=== PATIENT | female | born 1945 | race Caucasian/White ===

== ENCOUNTER → 2017-12-23 13:36 | Outpatient (CLI) | payer MEDICARE, MEDICAID, SELFPAY | PROVIDERS: Family Provider Family Medicine; PCP Family Medicine; Visit Provider Family Medicine | DX: R35.0 Frequency of micturition (principal) | CPT/HCPCS: 87077; 87086; 87088; 87186 ==

== ENCOUNTER → 2017-12-29 15:07 | Outpatient (CLI) | payer MEDICARE, MEDICAID, SELFPAY | PROVIDERS: Family Provider Family Medicine; PCP Family Medicine; Visit Provider Family Medicine | DX: R35.0 Frequency of micturition (principal) | CPT/HCPCS: 87077; 87086; 87088; 87186 ==

== ENCOUNTER → 2018-03-13 16:53 | Outpatient (CLI) | payer MEDICARE, MEDICAID, SELFPAY | PROVIDERS: Family Provider Family Medicine; PCP Family Medicine; Visit Provider Nurse Practitioner Family | DX: R35.0 Frequency of micturition (principal) | CPT/HCPCS: 87086; 87088; 87186 ==

== ENCOUNTER → 2018-04-04 16:47 | Outpatient (CLI) | payer MEDICARE, MEDICAID, SELFPAY ==
--- NOTE | 2018-04-04 16:55 | CT_ITS ---
STUDY: CT ABDOMEN AND PELVIS WITHOUT CONTRAST REASON FOR EXAM: Female, 72 years old. Recurrent UTI. RADIATION DOSAGE (If Supplied By Facility): CTDIvol = ( 16.44 ) mGy, DLP = ( 780.39 ) mGycm TECHNIQUE: Transaxial images were obtained from the dome of the diaphragm to the symphysis pubis without oral contrast, and without intravenous contrast. Sagittal and coronal images were reconstructed. Individualized dose optimization techniques were used for this CT. COMPARISON: January 07, 2013 FINDINGS: There is minimal bibasilar atelectasis and/or scarring. The visualized portions of the heart are within normal limits. Normal liver. There are multiple gallstones. Normal spleen. Normal pancreas. Normal bilateral adrenal glands. There are bilateral nonobstructing renal calculi measuring up to 5.4 mm on the right and 5.8 mm on the left. Normal visualized stomach. Normal small intestine. There are scattered diverticula throughout the colon. There is non-visualization of the appendix. There is diffuse atherosclerotic calcification of the abdominal aorta, without a demonstrated aneurysm. Normal inferior vena cava. Normal retroperitoneum. Normal urinary bladder. Normal abdominal wall. There are diffuse degenerative changes of the visualized lumbar spine. There is a superior endplate deformity of L1. CT/Abdomen/Pelvis without Cont IMPRESSION: Bilateral nonobstructing renal calculi measuring up to 5.8 mm within the left kidney. Cholelithiasis. Colonic diverticulosis. Atherosclerosis. Degenerative changes. Electronically Signed: Daphney Nuñez MD at 17:28 EST Tel , Service support ,
--- OUTSIDE RECORDS SUMMARY | 2018-05-31 09:20 | XMS RPT_ITS ---
:1945 Author Organization OHIP Support Name Relationship Address Phone ASHLYN ESCALANTEE Unavailable [address] + [place] [address] R Unavailable Unavailable Unavailable WALT TOROONY Unavailable [address] + [place] [address] BORIS, MAINE Unavailable [address] + [place] [address] R Unavailable Unavailable Unavailable WALT TOROONY Unavailable [address] + [place] [address] BORIS, MAINE Unavailable [address] + [place] [address] R Unavailable Unavailable Unavailable WALT TOROONY Unavailable [address] + [place] [address] BORIS, MAINE Unavailable [address] + [place] [address] R Unavailable Unavailable Unavailable WALT TOROONY Unavailable [address] + [place] [address] BORIS, MAINE Unavailable [address] + [place] [address] R Unavailable Unavailable Unavailable WALT TOROONY Unavailable [address] + [place] [address] BORIS, MAINE Unavailable [address] + [place] [address] R Unavailable Unavailable Unavailable WALT TOROONY Unavailable [address] + [place] [address] BORIS, MAINE Unavailable [address] + [place] [address] R Unavailable Unavailable Unavailable WALT TOROONY Unavailable [address] + [place] [phone] BORIS ESCALANTETTE Unavailable [address] + [place] [address] R Unavailable Unavailable Unavailable YOVANY, EVENS Unavailable [address] + [place] [phone] [facility]available [address] + [place] [address] R Unavailable Unavailable Unavailable YOVANY, EVENS Unavailable [address] + [place] [phone] BORISBORIS DE LEÓNTTE Unavailable [address] + [place] [address] R Unavailable Unavailable Unavailable YOVANY, EVENS Unavailable [address] + [place] [phone] [facility] Unavailable [address] + [place] [id number] R Unavailable Unavailable Unavailable YOVANY EVENS Unavailable [address] + [place] [phone] Care Team Providers Name Role Phone DARLENE BASS II Attending Unavailable JoelleZachery Attending Unavailable Joelle, James Referring Unavailable Jolliff, Marta Primary Care Unavailable JoelleZacheryJames Attending Unavailable Joelle, James Referring Unavailable Jolliff, Marta Primary Care Unavailable JoelleZachery Attending Unavailable JoelleZacheryJames Referring Unavailable Jolliff, Marta Primary Care Unavailable JoelleZachery Attending Unavailable Joelle, James Referring Unavailable Jolliff, Marta Primary Care Unavailable JoelleZachery Attending Unavailable Joelle, James Referring Unavailable Jolliff, Marta Primary Care Unavailable Jolliff, Marta Attending Unavailable Jolliff, Marta Primary Care Unavailable Jolliff, Marta Attending Unavailable Jolliff, Marta Primary Care Unavailable Jolliff, Marta Attending Unavailable Jolliff, Marta Primary Care Unavailable Gonzalo Gongora Attending Unavailable Jolliff, Marta Primary Care Unavailable Lexi Patiño Attending Unavailable Lexi Patiño Referring Unavailable Jolliff, Marta Primary Care Unavailable Joelle, Zachery Rodgers Attending Unavailable Joelle, James Referring Unavailable Jolliff, Marta Primary Care Unavailable DeHorta, Capo Consulting Unavailable PROBLEMS PROBLEMS DATE TYPE CONDITION / CODE ATTENDING STATUS SOURCE 04/20/2018 Unknown N20.0 - Calculus Kaylyn Lexi Active [place] [facility] N20.0(ICD-10) Hospital Repository PROCEDURES PROCEDURES No Procedure Records FoundRESULTS RESULTS HEMOGLOBIN A1C Collected: 04/24/2018 Status: F Source: [place]AN[place] 10:33 AM [facility] REPOSITORY TYPE CODE TESTS RESULT OUT OF RANGE REFERENCE UNITS LAB L501.9985 4.2-6.3 % High HGB A1C 6.4 Performed By: #### L501.9985 #### [facility] [address] [place], [address] BASIC METABOLIC Collected: 04/24/2018 Status: F Source: [place]ANIE PROFILE (BMP) 10:33 AM [facility] REPOSITORY TYPE CODE TESTS RESULT OUT OF RANGE REFERENCE UNITS LAB L501.0100 74-106 mg/dL High GLU 119 Result Comment: Fasting Glucose result from 100 to 125 mg/dL suggests IMPAIRED HOMEOSTASIS per A.D.A. criteria. Please note revised GLUCOSE reference range effective 2017. LAB L501.1000 7-18 mg/dL Normal BUN 10 LAB L501.1100 0.55-1.02 mg/dL Normal CREAT,SERUM 0.92 Result Comment: The validity of the calculated GFR AND GFRAA in patients over 70 years has not been determined. Clinical correlation is essential. LAB L501.1110 >60 mL/min Normal EST GFR 64 Result Comment: Non- GFR Calc LAB L501.1115 >60 mL/min Normal EST GFR - AA 77 Result Comment: GFR Calc LAB L501.1300 10-20 RATIO Normal BUN/CRE 10.9 LAB L501.2200 8.5-10.1 mg/dL CA Normal 8.9 LAB L501.5300 136-145 mmol/L NA Normal 143 LAB L501.5600 3.5-5.1 mmol/L K Normal 4.1 LAB L501.5900 98-107 mmol/L CL Normal 105 LAB L501.6100 21.0-32.0 mmol/L Normal CO2 30.0 LAB L501.6200 5-15 Normal GAP 8 Performed By: #### L500.2500, L500.4100, L501.4100, L501.4405, L501.9520, L506.0400 #### [facility] [address] [place], [place], [id number] LIPID PROFILE Collected: 04/24/2018 Status: F Source: JANIE 10:33 AM [facility] REPOSITORY TYPE CODE TESTS RESULT OUT OF RANGE REFERENCE UNITS LAB L501.4900 200 mg/dL Normal CHOL 157 Result Comment: <200 mg/dL Desirable 200-240 mg/dL Borderline >240 mg/dL High Risk LAB L501.5000 mg/dL Normal TRIG 165 Result Comment: The drugs N-Acetylcysteine and Metamizole may falsely depress this assay. Serum Triglycerides Reference Interval Normal <150 mg/dL Borderline high 150 - 199 mg/dL High 200 - 499 mg/dL Very High > or = 500 mg/dL LAB L501.6400 mg/dL Normal HDL 52 Result Comment: The drugs N-Acetylcysteine and Metamizole may falsely depress this assay. Reference Range HDL <40 mg/dL Low HDL Cholesterol HDL >or= 60 mg/dL High HDL Cholesterol LAB L501.6500 0-130 mg/dL Normal LDL 72 LAB L501.6600 5-40 mg/dL Normal VLDL 33 Performed By: #### L500.2500, L500.4100, L501.4100, L501.4405, L501.9520, L506.0400 #### [facility] [address] [place], [address] AST(SGOT) Collected: 04/24/2018 Status: F Source: JANIE 10:33 AM [facility] REPOSITORY TYPE CODE TESTS RESULT OUT OF RANGE REFERENCE UNITS LAB L501.4100 15-37 U/L Low AST 14 Performed By: #### L500.2500, L500.4100, L501.4100, L501.4405, L501.9520, L506.0400 #### [facility] [address] [place], [address] ALANINE AMINOTRANSFERAS Collected: 04/24/2018 Status: F Source: JANIE (SGPT) 10:33 AM [facility] REPOSITORY TYPE CODE TESTS RESULT OUT OF RANGE REFERENCE UNITS LAB L501.4405 13-56 U/L Normal ALT 21 Performed By: #### L500.2500, L500.4100, L501.4100, L501.4405, L501.9520, L506.0400 #### [facility] [address] [place], [address] THYROID STIM HORMONE Collected: 04/24/2018 Status: F Source: [place] (TSH) 10:33 AM [facility] REPOSITORY TYPE CODE TESTS RESULT OUT OF RANGE REFERENCE UNITS LAB L501.9520 0.358-3.74 uIU/mL Low TSH 0.18 Performed By: #### L500.2500, L500.4100, L501.4100, L501.4405, L501.9520, L506.0400 #### [facility] [place], [address] T4 FREE DIRECT Collected: 04/24/2018 Status: F Source: [place] 10:33 AM [facility] REPOSITORY TYPE CODE TESTS RESULT OUT OF RANGE REFERENCE UNITS LAB L506.0400 0.76-1.46 ng/dL Normal T4 FREE 1.22 DIRECT Performed By: #### L500.2500, L500.4100, L501.4100, L501.4405, L501.9520, L506.0400 #### [facility] [place], [address] 12 LEAD ELECTROCARDIOGRAM Observed: 04/21/2018 Status: F Source: [place] 10:49 AM [facility] REPOSITORY [facility] Cardiovascular Services [address] [place] [id number] 12 Lead EKG 04/18/18 1501 MR#: [id number] Acct: [id number] Name: CLEM TORO Rep #: [id number] : 1945 72 From: Irving Mckenna MD Attending Dr: Joelle ENCINAS,Zachery Rodgers Status: PRE [facility] [place] Ordering Dr: Zachery Liao MD Date: 04/18/18 Location: [facility] [place] Sex: F C Admitted: Test Reason : PREOP Blood Pressure : / mmHG Vent. Rate : 087 BPM Atrial Rate : 087 BPM P-R Int : 150 ms QRS Dur : 080 ms QT Int : 380 ms P-R-T Axes : 062 073 041 degrees QTc Int : 457 ms Sinus rhythm with occasional Premature ventricular complexes ST AND T wave abnormality, consider inferior ischemia Abnormal ECG Confirmed by BALA ENCINAS, IRVING ([id number]), online content editor ROMA HENRY ([id number]) on 04/21/2018 10:49:27 AM Referred By: Zachery Liao Confirmed By:IRVING MCKENNA MD 04/21/18 1049 Date Irving Mckenna MD CC: Marta Mccarthy MD; Zachery Liao MD Signed Observed: 04/20/2018 Status: F Source: [place] CDIFF (MOLECULAR) 4:07 PM [facility] REPOSITORY Cdiff-Molecular Normal Reference Range = Negative CALLED TO DR. LIAO 04/20/181818 BY [facility]. C. Diff DNA Positive-Toxigenic C. Difficile DNA Detected NAAT METHOD Testing was performed using nucleic acid amplification ORGANISM 1: Toxigenic C. difficile DNA Performed By: #### M100.6796 #### [facility] [address] [facility] [place], [address] ABDOMEN/PELVIS WITHOUT Observed: 04/04/2018 Status: F Source: [place] CONT 4:55 PM [facility] REPOSITORY [facility] Imaging Services [address] [place] [address] Abdomen/Pelvis without Cont MR#: [id number] Acct: [id number] Name: CLEM TORO Rep #: [id number] : 1945 F 72 From: Daphney Nuñez MD PCP: Marta Mccarthy MD Status: REG CLI Study: Abdomen/Pelvis without Cont Date of Exam: 04/04/18 Exam# [id number] Ordering Dr: Lexi Patiño VP PRODUCT MANAGEMENT-C STUDY: CT ABDOMEN AND PELVIS WITHOUT CONTRAST REASON FOR EXAM: Female, 72 years old. Recurrent UTI. RADIATION DOSAGE (If Supplied By Facility): CTDIvol = ( 16.44 ) mGy, DLP = ( 780.39 ) mGycm TECHNIQUE: Transaxial images were obtained from the dome of the diaphragm to the symphysis pubis without oral contrast, and without intravenous contrast. Sagittal and coronal images were reconstructed. Individualized dose optimization techniques were used for this CT. COMPARISON: January 07, 2013 FINDINGS: There is minimal bibasilar atelectasis and/or scarring. The visualized portions of the heart are within normal limits. Normal liver. There are multiple gallstones. Normal spleen. Normal pancreas. Normal bilateral adrenal glands. There are bilateral nonobstructing renal calculi measuring up to 5.4 mm on the right and 5.8 mm on the left. Normal visualized stomach. Normal small intestine. There are scattered diverticula throughout the colon. There is non-visualization of the appendix. There is diffuse atherosclerotic calcification of the abdominal aorta, without a demonstrated aneurysm. Normal inferior vena cava. Normal retroperitoneum. Normal urinary bladder. Normal abdominal wall. There are diffuse degenerative changes of the visualized lumbar spine. There is a superior endplate deformity of L1. CT/Abdomen/Pelvis without Cont IMPRESSION: Bilateral nonobstructing renal calculi measuring up to 5.8 mm within the left kidney. Cholelithiasis. Colonic diverticulosis. Atherosclerosis. Degenerative changes. Electronically Signed: Daphney Nuñez MD at 17:28 EST Tel , Service support , CC: Marta Mccarthy MD; Lexi Patiño NP [employer] Hand[employer] Supervisor: Signed Observed: 04/04/2018 Status: F Source: JANIE CULTURE, URINE 4:00 PM [facility] REPOSITORY Urine Culture RESULTS CALLED TO AIDAN Leos 04/06/18 1436 Cheyenne Youssef. Copy of report sent to Infection Control Printer [id number] 04/06/18 0838 BLANCHE. ORGANISM 1: Escherichia coli [place] Count >100,000 MARKER ESBL producing Organism Escherichia coli: REACTION Amikacin $ <=2 S Aztreonam $$$ 4 R Meropenem $ <=0.25 S (NF) indicates non-formulary drug at [facility]. Approval by Infectious Disease Specialist required before non-formulary drugs may be ordered and/or dispensed. Escherichia coli: REACTION Amoxacillin/Clavulanic Acid $ 4 S Ampicillin $ >=32 R Ampicillin/Sulbactam $ 4 S Cefazolin $ >=64 R Cefepime $ <=1 R Ceftriaxone $ 32 R Ciprofloxacin $ >=4 R ESBL + Ertapenim $$$ <=0.5 S Gentamicin $ <=1 S Imipenem *NF <=0.25 S Levofloxacin $ >=8 R Nitrofurantoin $ 128 R Piperacillin/Tazobactam $$ <=4 S Tobramycin $ <=1 S Trimethoprim/Sulfametho $ >=320 R (NF) indicates non-formulary drug at [facility]. Approval by Infectious Disease Specialist required before non-formulary drugs may be ordered and/or dispensed. Performed By: #### M100.0650 #### [facility] [address] [place], [address] Observed: 03/13/2018 Status: F Source: [place] CULTURE, URINE 9:40 AM [facility] REPOSITORY Urine Culture ORGANISM 1: Presumptive E. coli [place] Count >100,000 Presumptive E. coli: REACTION Amoxacillin/Clavulanic Acid $ <=2 S Ampicillin $ 8 S Ampicillin/Sulbactam $ <=2 S Cefazolin $ <=4 S Cefepime $ <=1 S Ceftriaxone $ <=1 S Ciprofloxacin $ <=0.25 S ESBL - Ertapenim $$$ <=0.5 S Gentamicin $ <=1 S Imipenem *NF <=0.25 S Levofloxacin $ <=0.12 S Nitrofurantoin $ 32 S Piperacillin/Tazobactam $$ <=4 S Tobramycin $ <=1 S Trimethoprim/Sulfametho $ <=20 S (NF) indicates non-formulary drug at [facility]. Approval by Infectious Disease Specialist required before non-formulary drugs may be ordered and/or dispensed. Performed By: #### M100.0650 #### [facility] [address] [place], [address] Observed: 2017 Status: F Source: JANIE CULTURE, URINE 3:08 PM [facility] REPOSITORY Order Date: 12/26/17 Order Info: 630-4 - CUUR Urine Culture Copy of report sent to Infection Control Printer [id number] 12/31/17 0821 BLANCHE. RESULTS CALLED TO DEREK/ [phone] 01/02/18 0834 Cheyenne Youssef. REPORT READ BACK BY SAME. ORGANISM 1: Escherichia coli [place] Count 11,000-25,000 MARKER ESBL producing Organism Escherichia coli: REACTION Amikacin $ <=2 S Aztreonam $$$ 4 R Meropenem $ <=0.25 S (NF) indicates non-formulary drug at [facility]. Approval by Infectious Disease Specialist required before non-formulary drugs may be ordered and/or dispensed. Escherichia coli: REACTION Amoxacillin/Clavulanic Acid $ 4 S Ampicillin $ >=32 R Ampicillin/Sulbactam $ 4 S Cefazolin $ >=64 R Cefepime $ 2 R Ceftriaxone $ >=64 R Ciprofloxacin $ >=4 R ESBL + Ertapenim $$$ <=0.5 S Gentamicin $ <=1 S Imipenem *NF <=0.25 S Levofloxacin $ >=8 R Nitrofurantoin $ <=16 S Piperacillin/Tazobactam $$ <=4 S Tobramycin $ <=1 S Trimethoprim/Sulfametho $ >=320 R (NF) indicates non-formulary drug at [facility]. Approval by Infectious Disease Specialist required before non-formulary drugs may be ordered and/or dispensed. Performed By: #### M100.0650 #### [facility] [address] [place], [address] Observed: 12/23/2017 Status: F Source: JANIE CULTURE, URINE 12:30 PM [facility] REPOSITORY Order Date: 12/23/17 Order Info: 630-4 - CUUR Urine Culture RESULTS CALLED TO KINDRA () 12/26/17 0822 Geneva Helton. REPORT READ BACK BY SAME. Copy of report sent to Infection Control Printer [id number] 12/26/17 9593 MAYLIN. ORGANISM 1: Escherichia coli [place] Count 50,000-80,000 MARKER ESBL producing Organism Escherichia coli: REACTION Amikacin $ <=2 S Aztreonam $$$ 4 R Meropenem $ <=0.25 S (NF) indicates non-formulary drug at [facility]. Approval by Infectious Disease Specialist required before non-formulary drugs may be ordered and/or dispensed. Escherichia coli: REACTION Amoxacillin/Clavulanic Acid $ 4 S Ampicillin $ >=32 R Ampicillin/Sulbactam $ 4 S Cefazolin $ >=64 R Cefepime $ <=1 R Ceftriaxone $ >=64 R Ciprofloxacin $ >=4 R ESBL + Ertapenim $$$ <=0.5 S Gentamicin $ <=1 S Imipenem *NF <=0.25 S Levofloxacin $ >=8 R Nitrofurantoin $ <=16 S Piperacillin/Tazobactam $$ <=4 S Tobramycin $ <=1 S Trimethoprim/Sulfametho $ >=320 R (NF) indicates non-formulary drug at [facility]. Approval by Infectious Disease Specialist required before non-formulary drugs may be ordered and/or dispensed. Performed By: #### M100.0650 #### [facility] [address] [place] [address]. [place], [address] PROGRESS Observed: 06/07/2017 Status: COMPLETED Source: [place] 3:47 PM [facility] REPOSITORY HNO ID: [id number] Author: Darlene Bass II Service: (none) Author Type: PERSONNEL ADVISER Type: Progress Notes Filed: 06/07/2017 3:49 PM Note Text: ASSESSMENT/PLAN: 1. Myopia of both eyes - ICD9: 367.1, ICD10: H52.13 (primary diagnosis) 2. Presbyopia - ICD9: 367.4, ICD10: H52.4 Updated glasses power demonstrated to patient. Change glasses to maximize visual performance as desired. 3. Type 2 diabetes mellitus without retinopathy (HCC) - ICD9: 250.00, ICD10: E11.9 Examination shows no ocular diabetic complications today. Discussed need for optimal diabetes control to minimize chance of ocular complications. Advise patient to immediately report worsening in status or additional symptoms. Continue yearly dilated eye examinations. 4. Combined form of senile cataract of both eyes - ICD9: 366.19, ICD10: H25.813 Cataract formation progressing. Patient defers surgical correction until a later time. 5. Dermatochalasis of both upper eyelids - ICD9: 374.87, ICD10: H02.831, H02.834 Tolerable for now. Monitor for progression. 6. Vitreous floaters of both eyes - ICD9: 379.24, ICD10: H43.393 Vitreal floaters stable both eyes. Retinas flat and intact with no apparent retinal tear or traction. Monitor yearly. I have confirmed and edited as necessary the relevant ophthalmic history, review of systems, surgical history, and ophthalmological examination findings as obtained by the ophthalmic technical staff. I have seen and examined Clem Toro. I have discussed the examination findings, diagnosis, and treatment options with the patient and/or the patient's family. I have also reviewed and agree with the assessment and plan as stated above and agree with all its relevant components. I gave the patient the opportunity to ask questions about the findings, diagnosis, and treatment options. Darlene Bass II, OD HOSP Observed: 06/07/2017 Status: COMPLETED Source: [place] 3:00 PM [facility] REPOSITORY Office Visit OPHT (OPTLOU) CLEM TORO ([id number]) 1945 F Date Time Provider Department 06/07/17 3:00 PM DARLENE BASS II During your visit today, we recorded the following information about you: Darlene Bass II, OD 06/07/2017 3:49 PM Signed ASSESSMENT/PLAN: 1. Myopia of both eyes - ICD9: 367.1, ICD10: H52.13 (primary diagnosis) 2. Presbyopia - ICD9: 367.4, ICD10: H52.4 Updated glasses power demonstrated to patient. Change glasses to maximize visual performance as desired. 3. Type 2 diabetes mellitus without retinopathy (HCC) - ICD9: 250.00, ICD10: E11.9 Examination shows no ocular diabetic complications today. Discussed need for optimal diabetes control to minimize chance of ocular complications. Advise patient to immediately report worsening in status or additional symptoms. Continue yearly dilated eye examinations. 4. Combined form of senile cataract of both eyes - ICD9: 366.19, ICD10: H25.813 Cataract formation progressing. Patient defers surgical correction until a later time. 5. Dermatochalasis of both upper eyelids - ICD9: 374.87, ICD10: H02.831, H02.834 Tolerable for now. Monitor for progression. 6. Vitreous floaters of both eyes - ICD9: 379.24, ICD10: H43.393 Vitreal floaters stable both eyes. Retinas flat and intact with no apparent retinal tear or traction. Monitor yearly. I have confirmed and edited as necessary the relevant ophthalmic history, review of systems, surgical history, and ophthalmological examination findings as obtained by the ophthalmic technical staff. I have seen and examined Clem Andrew Toro. I have discussed the examination findings, diagnosis, and treatment options with the patient and/or the patient's family. I have also reviewed and agree with the assessment and plan as stated above and agree with all its relevant components. I gave the patient the opportunity to ask questions about the findings, diagnosis, and treatment options. Darlene Bass, II, OD Darlene Bass, II, OD 06/07/2017 3:49 PM Signed ASSESSMENT/PLAN: 1. Myopia of both eyes - ICD9: 367.1, ICD10: H52.13 (primary diagnosis) 2. Presbyopia - ICD9: 367.4, ICD10: H52.4 Updated glasses power demonstrated to patient. Change glasses to maximize visual performance as desired. 3. Type 2 diabetes mellitus without retinopathy (HCC) - ICD9: 250.00, ICD10: E11.9 Examination shows no ocular diabetic complications today. Discussed need for optimal diabetes control to minimize chance of ocular complications. Advise patient to immediately report worsening in status or additional symptoms. Continue yearly dilated eye examinations. 4. Combined form of senile cataract of both eyes - ICD9: 366.19, ICD10: H25.813 Cataract formation progressing. Patient defers surgical correction until a later time. 5. Dermatochalasis of both upper eyelids - ICD9: 374.87, ICD10: H02.831, H02.834 Tolerable for now. Monitor for progression. 6. Vitreous floaters of both eyes - ICD9: 379.24, ICD10: H43.393 Vitreal floaters stable both eyes. Retinas flat and intact with no apparent retinal tear or traction. Monitor yearly. Referring Provider: SELF [200] Allergies As of Date: 06/07/2017 Noted Allergy Reaction CODEINE 01/19/2011 11 - Vomiting HYDROCODONE 01/19/2011 11 - Vomiting MEPERIDINE 01/19/2011 11 - Vomiting MORPHINE 01/19/2011 11 - Vomiting PENICILLINS 01/19/2011 16 - Unknown SEASONAL ALLERGIES 10/09/2014 14 - Other: See Comments Comments: Sinus and eyes SULFA (SULFONAMIDE ANTIBIOTICS) 06/07/2017 11 - Vomiting THIOPENTAL 01/19/2011 11 - Vomiting Date Reviewed: 06/07/2017 Reviewed by: Darlene Bass II - Fully Assessed Reason for Visit: Yearly Exam [187] Diabetes [34] Primary Visit Diagnosis:Myopia of both eyes [H52.13] Other Visit Diagnoses:Presbyopia [H52.4] Type 2 diabetes mellitus without retinopathy (HCC) [E11.9] Combined form of senile cataract of both eyes [H25.813] Dermatochalasis of both upper eyelids [H02.831, H02.834] Vitreous floaters of both eyes [H43.393] Order(s):VISUAL FIELD C-40 SCREENING OU [[id number]] Order #: [id number]: 1 Prescriptions as of 06/07/2017 Sig: METFORMIN ER 500 MG TABLET,EX* ASPIRIN ORAL Take by mouth. VITAMIN D-3 ORAL Take by mouth. GARLIC ORAL Take by mouth. MULTIVITAMIN ORAL Take by mouth. CALCIUM ORAL Take by mouth. BIOTIN ORAL Take by mouth. AMITRIPTYLINE 50 MG TABLET AZELASTINE 0.05 % EYE DROPS FLUTICASONE 50 MCG/ACTUATION * LEVOTHYROXINE 75 MCG TABLET MYCOPHENOLATE MOFETIL 500 MG * SIMVASTATIN 40 MG TABLET METOPROLOL SUCCINATE ER 25 MG* Take 25 mg by mouth once ellis* ACCU-CHEK RAMANDEEP PLUS TEST STR* ACCU-CHEK RAMANDEEP PLUS METER Problem List As Of Date 06/07/2017 Noted Resolved Combined form of senile cataract of both eyes [*INVALID FOR* Dermatochalasis of both upper eyelids [H02.831,*INVALID FOR* Myopia [H52.10] INVALID FOR* Presbyopia [H52.4] INVALID FOR* Floaters [H43.399] INVALID FOR* Type 2 diabetes mellitus without retinopathy (H*INVALID FOR* Other instructions from your clinician: ASSESSMENT/PLAN: 1. Myopia of both eyes - ICD9: 367.1, ICD10: H52.13 (primary diagnosis) 2. Presbyopia - ICD9: 367.4, ICD10: H52.4 Updated glasses power demonstrated to patient. Change glasses to maximize visual performance as desired. 3. Type 2 diabetes mellitus without retinopathy (HCC) - ICD9: 250.00, ICD10: E11.9 Examination shows no ocular diabetic complications today. Discussed need for optimal diabetes control to minimize chance of ocular complications. Advise patient to immediately report worsening in status or additional symptoms. Continue yearly dilated eye examinations. 4. Combined form of senile cataract of both eyes - ICD9: 366.19, ICD10: H25.813 Cataract formation progressing. Patient defers surgical correction until a later time. 5. Dermatochalasis of both upper eyelids - ICD9: 374.87, ICD10: H02.831, H02.834 Tolerable for now. Monitor for progression. 6. Vitreous floaters of both eyes - ICD9: 379.24, ICD10: H43.393 Vitreal floaters stable both eyes. Retinas flat and intact with no apparent retinal tear or traction. Monitor yearly. Disposition: Return in about 1 year (around 06/07/2018). Follow-up and Disposition History Recorded Letter Text Encounter Status:Closed by DARLENE BASS II OD on 06/07/17 ALLERGIES ALLERGIES DATE TYPE / CODE NAME / CODE REACTION SEVERITY SOURCE 04/20/2018 Drug meperidine Vomiting Unknown [place] Allergy/574782311( HCl/H086661981(R [facility]) XNORM) Hospital Repository 04/20/2018 Drug hydrocodone Vomiting Unknown [place] Allergy/892552884( bitartrate/F0000 [facility]) 78231(RXNORM) Hospital Repository 04/20/2018 Drug Penicillins/F001 Unknown Unknown [place] Allergy/958650519( 318282(RXNORM) [facility] Hospital Repository 04/20/2018 Drug morphine/S231912 Vomiting Unknown [place] Allergy/982632736( 545(RXNORM) [facility] Hospital Repository 04/20/2018 Drug codeine/O7066214 Vomiting Unknown [place] Allergy/702033573( 50(RXNORM) [facility] Hospital Repository 04/20/2018 Drug acetaminophen/F0 Vomiting Unknown [place] Allergy/122374493( 59963774(RXNORM) [facility] Hospital Repository 04/20/2018 Miscellaneous sodium penathol Other Unknown [place] Allergy/932577041( [facility]) Hospital Repository 06/26/2015 Drug sodium Unknown Unknown [place] Allergy/061186543( phosphate/F03044 [facility]) 7397(RXNORM) Hospital Repository 10/09/2014 Environ/404647066( [facility] Repository ENCOUNTERS ENCOUNTERS ADMIT/DISCHARGE ACCOUNT ADMITTING ENCOUNTER LOCATION SOURCE NUMBER CLASS 05/10/2018 [id number] [facility] ing:SDC Repository 04/24/2018 [id number] [facility] ing:MFPLAB Repository 04/22/2018 [id number] [facility] Hospital ing:MEDOUTP Repository 04/21/2018 [id number] Ambulatory [facility] Hospital ing:MEDOUTP Repository 04/20/2018 [id number] [facility] Hospital ing:MEDOUTP Repository 04/19/2018 [id number] [facility] Hospital ing:MEDOUTP Repository 04/18/2018 [id number] [facility] ing:MEDOUTP Repository 04/04/2018 [id number] [facility] ing:CT Repository 03/13/2018 [id number] Ambulatory [facility] ing:LABSPEC Repository 2017 [id number] [facility] ing:LABSPEC Repository 12/23/2017 [id number] [facility] ing:LABSPEC Repository 06/07/2017/08/11/19 [id number] Ambulatory [address] Repository PAYERS PAYERS ENCOUNTER GUARANTOR PAYER SUBSCRIBER SOURCE 05/10/2018 CLEM A Primary CLEM A [place] [id number] TR Insurance:CRUZ REZANDOB: [place] [address] SENIOR [id number] [address]Lzb: ADVANTAPolicy Number: Repository [id number] (HP) Date:[id number] [address] [place] [address] 31237IF: 05/10/2018 Secondary CLEM A [place] Insurance:MEDICAIDPol STEFFENDOB: Community icy Number: [id number] [facility] [id number] Repository Date:2018-04-06 05/10/2018 Tertiary NOT GIVENUNK [place] Insurance:SELF PAY [facility] Number: Effective Repository Date:2018-04-06 04/24/2018 CLEM A Primary CLEM A [place] [id number] TR Insurance:CRUZ REZANDOB: Community [address] SENIOR [id number] Healthcare Facility [address]Fpu: ADVANTAPolicy Number: Repository [id number] (HP) Date:[id number] [id number] [place] [address] 88011CH: 04/24/2018 Secondary CLEM A [place] Insurance:MEDICAIDPol STEFFENDOB: Community icy Number: [id number] Hospital [id number] Repository Date:2018-04-24 04/24/2018 Tertiary NOT GIVENUNK [place] Insurance:SELF PAY [facility] Number: Effective Repository Date:2018-04-24 04/22/2018 CLEM A Primary CLEM A [place] [id number] TR Insurance:ANTHEM STESUDEEPNDOB: Community [address] SENIOR [id number] Healthcare Facility [address]Dcv: ADVANTAPolicy Number: Repository [id number] (HP) Date:5485-89-49WS [address] [place] [address] 43023HW: 04/22/2018 Secondary NOT GIVENUNK [place] Insurance:SELF PAY [facility] Number: Effective Repository Date:2018-04-17 04/21/2018 CLEM A Primary CLEM A [place] [id number] TR Insurance:ANTHEM STEFFENDOB: Community [address] SENIOR [id number] [place] [address]Ptx: ADVANTAPolicy Number: Repository [id number] (HP) Date:3731-32-59NS [address] [place] [address] 61973JY: 04/21/2018 Secondary NOT GIVENUNK [place] Insurance:SELF PAY [facility] Number: Effective Repository Date:2018-04-17 04/20/2018 CLEM A Primary CLEM A [place] [id number] TR Insurance:ANTHEM STEFFENDOB: Community [address] SENIOR [id number] [place] [address]Hab: ADVANTAPolicy Number: Repository [id number] (HP) Date:7305-38-61AP [address] [place] [address] 63066DR: 04/20/2018 Secondary CLEM A [place] [facility] STEFFENDOB: [facility] Number: [id number] Hospital [id number] Repository Date:2018-04-17 04/20/2018 Tertiary NOT GIVENUNK [place] Insurance:SELF PAY [facility] Number: Effective Repository Date:2018-04-17 04/19/2018 CLEM A Primary CLEM A [place] [id number] TR Insurance:ANTHEM STEFFENDOB: Community [address] SENIOR [id number] [place] [address]Tar: ADVANTAPolicy Number: Repository [id number] (HP) Date:1599-55-32ON [address] [place] [address] 49185MI: 04/19/2018 Secondary CLEM A [place] [facility] STEFFENDOB: [facility] Number: [id number] Hospital [id number] Repository Date:2018-04-17 04/19/2018 Tertiary NOT GIVENUNK Jan[place] Insurance:SELF PAY [facility] Number: Effective Repository Date:2018-04-17 04/18/2018 CLEM A Primary CLEM A [place] [id number] TR Insurance:ANTHEM STEFFENDOB: Community [address] SENIOR [id number] [place] [address]Xcp: ADVANTAPolicy Number: Repository [id number] (HP) Date:7238-21-82JP [address] [place] [address] 02346QG: 04/18/2018 Secondary NOT GIVENUNK [place] Insurance:SELF PAY [facility] Number: Effective Repository Date:2018-04-17 04/04/2018 CLEM A Primary CLEM A [place] [id number] TR Insurance:ANTHEM STEFFENDOB: Community [address] SEN[place] [id number] [place] [address]Lyp: ADVANTAPolicy Number: Repository [id number] (HP) Date:1475-35-44BP [id number] [place] [address] 89105PZ: 04/04/2018 Secondary NOT GIVENUNK [place] Insurance:SELF PAY [facility] Number: Effective Repository Date:2018-04-04 03/13/2018 CLEM A Primary CLEM A [place] [id number] TR Insurance:ANTHEM STEFFENDOB: Community [address] SENIOR [id number] [place] [address]Lsy: ADVANTAPolicy Number: Repository [id number] (HP) Date:8958-29-53HK [address], [place] [address]OE: 03/13/2018 Secondary CLEM A [place] Insurance:MEDICAIDPol STEFFENDOB: Community icy Number: [id number] Hospital [id number] Repository Date:2018-03-13 03/13/2018 Tertiary NOT GIVENUNK [place] Insurance:SELF PAY [facility] Number: Effective Repository Date:2018-03-13 2017 CLEM A Primary CLEM A [place] [id number] TR Insurance:ANTHEM STEFFENDOB: Community [address] [place] SENIOR [id number] Healthcare Facility [address]Aal: ADVANTAPolicy Number: Repository [id number] (HP) Date:6045-23-46XW [address], [place] [address]IM: 2017 Secondary CLEM A [place] Insurance:MEDICAIDPol STEFFENDOB: Community icy Number: [id number] Hospital [id number] Repository Date:2017 2017 Tertiary NOT GIVENUNK [place] Insurance:SELF PAY [facility] Number: Effective Repository Date:2017 12/23/2017 CLEM A Primary CLEM A [place] [id number] TR Insurance:ANTHEM STEFFENDOB: Community [address] SENIOR [id number] [place] [address]Eda: ADVANTAPolicy Number: Repository [id number] (HP) Date:3365-37-73XS [address] [place] [address] 21742YF: 12/23/2017 Secondary CLEM A [place] Insurance:MEDICAIDPol STEFFENDOB: Community icy Number: [id number] Hospital [id number] Repository Date:2017-12-23 12/23/2017 Tertiary NOT GIVENUNK [place] Insurance:SELF PAY [facility] Number: Effective Repository Date:2017-12-23
== END ==
PROVIDERS: Family Provider Family Medicine; PCP Family Medicine; Referring Provider Nurse Practitioner Adult Health; Visit Provider Nurse Practitioner Adult Health
DX: N20.0 Calculus of kidney (principal); N39.0 Urinary tract infection, site not specified
CPT/HCPCS: 74176; 87077; 87086; 87088; 87186

== ENCOUNTER → 2018-04-18 13:23 | Outpatient (CLI) | payer MEDICARE, MEDICAID, SELFPAY ==
[2018-04-18 13:51] VITALS: BP 160/62; PULSE 99; RESP 18; TEMP 36.5; O2SAT 100; BMI 32.7
--- OUTSIDE RECORDS SUMMARY | 2018-06-04 17:54 | XMS RPT_ITS ---
:1945 Author Organization OHIP Support Name Relationship Address Phone ASHLYN ESCALANTEE Unavailable [address] + [place] [address] R Unavailable Unavailable Unavailable WALT TOROONY Unavailable [address] + [place] [address] BORIS, MAINE Unavailable [address] + [place] [address] R Unavailable Unavailable Unavailable WALT TOROONY Unavailable [address] + [place] [address] BORIS, MAINE Unavailable [address] + [place] [address] R Unavailable Unavailable Unavailable WALT TOROONY Unavailable [address] + [place] [address] BORIS, MAINE Unavailable [address] + [place] [address] R Unavailable Unavailable Unavailable WALT TOROONY Unavailable [address] + [place] [address] BORIS, MAINE Unavailable [address] + [place] [address] R Unavailable Unavailable Unavailable WALT TOROONY Unavailable [address] + [place] [address] BORIS, MAINE Unavailable [address] + [place] [address] R Unavailable Unavailable Unavailable WALT TOROONY Unavailable [address] + [place] [address] BORIS, MAINE Unavailable [address] + [place] [address] R Unavailable Unavailable Unavailable WALT TOROONY Unavailable [address] + [place] [address] BORIS, MAINE Unavailable [address] + [place] [address] R Unavailable Unavailable Unavailable YOVANY, EVENS Unavailable [address] + [place] [address] Ana ESCALANTEVETTE Unavailable [address] + [place] [address] R Unavailable Unavailable Unavailable YOVANY, EVENS Unavailable [address] + [place] [address] Ana ESCALANTEVETTE Unavailable [address] + [place] [address] R Unavailable Unavailable Unavailable YOVANY, EVENS Unavailable [address] + [place] [id number] Ana ESCALANTEVETTE Unavailable [address] + [place] [address] R Unavailable Unavailable Unavailable YOVANY, EVENS Unavailable [address] + [place] [address] BORISAna DE LEÓNVETTE Unavailable [address] + [place] [address] R Unavailable Unavailable Unavailable YOVANY, EVENS Unavailable [address] + [place] [id number] BORIS ESCALANTETTE Unavailable [address] + [place] [address] R Unavailable Unavailable Unavailable YOVANY, EVENS Unavailable [address] + [place] [id number] [facility] [address] + [place] [address] R Unavailable Unavailable Unavailable YOVANY, EVENS Unavailable [address] + [place] [address] Care Team Providers Name Role Phone DARLENE BASS II Attending Unavailable Zachery Liao Attending Unavailable JoelleZachery Referring Unavailable Jolliff, Marta Primary Care Unavailable Zachery Liao Attending Unavailable JoelleZachery Referring Unavailable Jolliff, Marta Primary Care Unavailable JoelleZachery rizvi Attending Unavailable JoelleZachery Referring Unavailable Jolliff, Marta Primary Care Unavailable Joelle, James Attending Unavailable Joelle, James Referring Unavailable Jolliff, Marta Primary Care Unavailable Joelle, James Attending Unavailable Joelle, James Referring Unavailable Jolliff, Marta Primary Care Unavailable Jolliff, Marta Attending Unavailable Jolliff, Marta Primary Care Unavailable Jolliff, Marta Attending Unavailable Jolliff, Marta Primary Care Unavailable Jolliff, Marta Attending Unavailable Jolliff, Marta Primary Care Unavailable Gonzalo Gongora Attending Unavailable Jolliff, Marta Primary Care Unavailable Kaylyn, Lexi Vences Attending Unavailable Kaylyn, Lexi M Referring Unavailable Jolliff, Marta Primary Care Unavailable Joelle, James Attending Unavailable Joelle, James Referring Unavailable Capo Guerra Consulting Unavailable SchinJerome ferguson Primary Care Unavailable Moodispayoselin, Irving Attending Unavailable Joelle, James Referring Unavailable Joelle, Zachery Rodgers Attending Unavailable Joelle, James Referring Unavailable Jolliff, Marta Primary Care Unavailable Kaylyn, Lexi Vences Attending Unavailable Kaylyn, Lexi Vangie Referring Unavailable SchinJerome ferguson Primary Care Unavailable PROBLEMS PROBLEMS DATE TYPE CONDITION / CODE ATTENDING STATUS SOURCE 05/03/2018 Unknown R94.31 - Abnormal Moodispaw, Active [place] electrocardiogram [facility] [ECG] [EKG] / Hospital R94.31(ICD-10) Repository 05/30/2018 Unknown N20.0 - Calculus of Kaylyn, Active [place] kidney / N20.0(ICD-10) Lexi Vences [facility] Repository PROCEDURES PROCEDURES No Procedure Records FoundRESULTS RESULTS ABDOMEN SINGLE VIEW Observed: 05/25/2018 Status: F Source: [place] 2:18 PM [facility] REPOSITORY [facility] Imaging Services [address] [place] [address] Abdomen Single View MR#: [id number] Acct: [id number] Name: CLEM TORO Rep #: [id number] : 1945 F 72 From: Hugo Martínez MD PCP: Jerome Richard MD Status: REG CLI Study: Abdomen Single View Date of Exam: 05/25/18 Exam# [id number] Ordering Dr: Lexi Patiño INSTALLATION AND SERVICE TECHNICIAN-C STUDY: X-RAY - ABDOMEN/PELVIS REASON FOR EXAM: Female, 72 years old. Kidney stones. TECHNIQUE: Two AP supine views of the abdomen and pelvis. COMPARISON: AP supine view of the abdomen and pelvis May 10, 2018; CT abdomen and pelvis April 04, 2018. FINDINGS: Normal visualized lung bases. There is an unremarkable bowel gas pattern. There is no demonstrated free abdominal air. Rim calcified gallstones again project in the right upper quadrant. The bilateral renal calculi noted on CT are not clearly demonstrated here. Elongated right lobe of the liver again noted. The visualized spleen is grossly normal in size and morphology. There are calcified phleboliths in the pelvis. There are stable multilevel degenerative changes of the visualized spine as well as stable mild compression deformity of the second nonrib-bearing vertebra from the top. A transitional lumbosacral body also again noted.. RAD/Abdomen Single View IMPRESSION: 1. Bilateral nephrolithiasis demonstrated on CT is not apparent here. 2. Gallstones again noted. 3. Nonspecific bowel gas pattern. No free gas. 4. Stable degenerative changes of the spine, as well as stable compression deformity of an upper lumbar vertebra. Transitional lumbosacral body also again seen. Electronically Signed: Danis Martínez MD at 14:37 EST , Service support , CC: Jerome Richard MD; Lexi Patiño NP Dust Control Engineer: Signed BEDSIDE GLUCOSE Collected: 05/10/2018 Status: F Source: [place] 5:10 PM [facility] REPOSITORY TYPE CODE TESTS RESULT OUT OF RANGE REFERENCE UNITS LAB L501.080 70-110 mg/dL Normal BEDSIDE GLU 96 Result Comment: MANAGEMENT OF PATIENT CARE PER NURSING PROTOCOL Performed By: #### L501.080 #### [place] [facility] Laboratory Point of Care [address] [place] [address] OPERATIVE REPORT Observed: 05/10/2018 Status: F Source: [place] 4:40 PM [facility] REPOSITORY [facility] Medical Records Department [address] [place] [address] Operative Report 05/10/18 1638 MR#: [id number] Acct: [id number] Name: CLEM TORO Rep #: [id number] : 1945 72 From: Zachery Liao MD PCP: Jerome Richard MD Status: REG [facility] Y Location: [place] [address] Report of Operation Date of Procedure: 05/10/18 Pre-Operative Diagnosis: Bilateral renal calculi Post-Operative Diagnosis: the same Surgery/Procedure Performed:: Right ESWL and left ESWL Description of Surgical Findings:: 72-year-old female has been having recurrent urinary tract infections and workup she was found to have bilateral renal stones we treated her infection the stones may be related to the infections were to proceed with shockwave lithotripsy. She was taken back to the operating room at the smooth induction of general anesthesia she was placed supine on the table we first localized the first stone in the right kidney the stone was behind the stones in her gallbladder we then were able to see the stone clearly we treated it with 2500 shockwaves stone broke up very nicely her first treatment cycle. We then went to the left side and she had several stones left kidney mid pole on the left side the stones were then treated with 3000 shockwaves rate of 120 power from 5-7 1 more monitoring the stone stones broke up really well decided not to leave a stent in both sides were treated broke up successfully and at this point we have stopped the procedure and the patient is undergoing reversal of her anesthesia. She will follow-up in a few weeks with a KUB. Type of Anesthesia:: General Drains: none - Admit VTE Documentation VTE Present on Admission: No VTE Mechan Device Prophylaxis: SCD's 05/10/18 1640 <Electronically signed by Zachery Liao MD> Date Zachery Liao MD CC: Capo Guerra MD; Jerome Richard MD; Zachery Liao MD Signed DISCHARGE INSTRUCTION Observed: 05/10/2018 Status: F Source: [place] 4:29 PM [facility] REPOSITORY [facility] Medical Records Department [address] [place] [address] Instructions for Home/Discharge Instructions 05/10/18 1628 MR#: [id number] Acct: [id number] Name: CLEM TORO Rep #: [id number] : 1945 72 From: Zachery Liao MD PCP: Jerome Richard MD Status: REG SDC Discharge Diet: Light diet - advance as tolerated Discharge Activity: Return to Normal Activity Allergies/Adverse Reactions: Allergies Penicillins Allergy (Verified 05/08/18 09:15) Unknown acetaminophen [From Vicodin] Adverse Reaction (Verified 05/08/18 09:15) Vomiting codeine Adverse Reaction (Verified 05/08/18 09:15) Vomiting hydrocodone bitartrate [From Vicodin] Adverse Reaction (Verified 05/08/18 09:15) Vomiting meperidine HCl [From Demerol] Adverse Reaction (Verified 05/08/18 09:15) Vomiting morphine Adverse Reaction (Verified 05/08/18 09:15) Vomiting sodium penathol Allergy (Uncoded 05/08/18 09:15) Other Medications to take at Discharge Amitriptyline HCl 50 mg PO QHS 06/26/15 Aspirin 325 mg PO DAILY@0800 06/26/15 Calcium Carbonate/Vitamin D3 [Calcium 500+D Tablet Chew] 500 mg PO DAILY 06/26/15 Cholecalciferol (VIT D3) [Vitamin D] 1,000 unit PO DAILY 06/26/15 Garlic 500 mg PO DAILY 06/26/15 Levothyroxine [Synthroid] 75 mcg PO DAILY 06/26/15 Metoprolol Tartrate [Lopressor (Beta Dylan)] 25 mg PO BID 06/26/15 Multivitamins,Ther W-Minerals [Multivitamin With Minerals] 1 tablet PO DAILY 06/26/15 Mycophenolate Mofetil [Cellcept] 500 mg PO BID 06/26/15 Simvastatin [Zocor] 40 mg PO QHS 06/26/15 Autoimmune C 1 tab PO QHS 04/12/18 Fluticasone 0.05% [Flonase Nasal [place]] 1 spray NASAL DAILY PRN 04/12/18 Metformin HCl [Metformin HCl ER] 500 mg PO DAILY 04/12/18 Acetaminophen [Tylenol Extra Strength] 500 mg PO Q4H PRN PRN #20 tablet 05/10/18 Ibuprofen 600 mg PO Q4H PRN PRN #20 tablet 05/10/18 The following prescriptions were given: Acetaminophen [Tylenol Extra Strength] 500 mg PO Q4H PRN PRN #20 tablet PRN Reason: Pain Ibuprofen 600 mg PO Q4H PRN PRN #20 tablet PRN Reason: Pain Orders to be completed after discharge: 12 Lead EKG [CVS] Time Frame: 04/13/18, Location: None Selected Primary Care Physician: Jerome Richard MD [Primary Care Provider] - Test Results: Test results from this visit will be discussed in further detail at your follow-up appointment, if applicable. Please Follow Up With: Zachery Liao MD When: in 2 weeks, please call to make an appointment. 05/10/18 1629 <Electronically signed by Zachery Liao MD> Date Zachery Liao MD CC: Capo Guerra MD; Jerome Richard MD Signed BEDSIDE GLUCOSE Collected: 05/10/2018 Status: F Source: [place] 1:10 PM [facility] REPOSITORY TYPE CODE TESTS RESULT OUT OF REFERENCE UNITS RANGE LAB L501.080 70-110 mg/dL High BEDSIDE GLU 113 Result Comment: MANAGEMENT OF PATIENT CARE PER NURSING PROTOCOL Performed By: #### L501.080 #### [facility] Point of Care [address] [place] [address] ABDOMEN SINGLE VIEW Observed: 05/10/2018 Status: F Source: [place] 12:32 PM [facility] REPOSITORY [facility] Imaging Services [address] [place] [address] Abdomen Single View MR#: [id number] Acct: [id number] Name: CLEM TORO Rep #: [id number] : 1945 F 72 From: Hugo Ordaz MD PCP: Jerome Richard MD Status: [facility] Study: Abdomen Single View Date of Exam: 05/10/18 Exam# [id number] Ordering Dr: Zachery Liao MD STUDY: X-RAY - ABDOMEN/PELVIS REASON FOR EXAM: Female, 72 years old. Preop for kidney stones TECHNIQUE: Single AP view of the abdomen / pelvis. COMPARISON: None. FINDINGS: Multiple large stones noted in the right upper quadrant likely within the gallbladder. No demonstrated calcifications overlying the right renal shadow, there are faint calcifications overlying the left renal shadow. There is an unremarkable bowel gas pattern. There is no demonstrated free abdominal air. The visualized liver, spleen and kidneys are grossly normal in size and morphology. There are calcified phleboliths in the pelvis. There are diffuse degenerative changes of the visualized lumbar spine. RAD/Abdomen Single View IMPRESSION: Cholelithiasis Likely left nephrolithiasis Degenerative bony changes Electronically Signed: Danis Ordaz MD at 13:12 EST , Service support , CC: Jerome Richard MD; Zachery Liao MD Dust Control Engineer: Signed Observed: 05/04/2018 Status: F Source: [place] CDIFF (MOLECULAR) 4:36 PM [facility] REPOSITORY Cdiff-Molecular Normal Reference Range = Negative C. Diff DNA Negative- No toxigenic C. Diff DNA Detected NAAT METHOD Testing was performed using nucleic acid amplification Performed By: #### M100.6796 #### [place] [facility] [place], [address] HEMOGLOBIN A1C Collected: 04/24/2018 Status: F Source: [place] 10:33 AM [facility] REPOSITORY TYPE CODE TESTS RESULT OUT OF RANGE REFERENCE UNITS LAB L501.9985 4.2-6.3 % High HGB A1C 6.4 Performed By: #### L501.9985 #### [facility] [address] [place], [place], [address] BASIC METABOLIC Collected: 04/24/2018 Status: F Source: [place] PROFILE (BMP) 10:33 AM [facility] REPOSITORY TYPE CODE TESTS RESULT OUT OF [...] L500.2500, L500.4100, L501.4100, L501.4405, L501.9520, L506.0400 #### [facility] [address] [place], [address] LIPID PROFILE Collected: 04/24/2018 Status: F Source: [place] 10:33 AM [facility] REPOSITORY TYPE CODE TESTS RESULT OUT OF [...] L500.2500, L500.4100, L501.4100, L501.4405, L501.9520, L506.0400 #### [facility] [address] [place], [place], [address] AST(SGOT) Collected: 04/24/2018 Status: F Source: [place] 10:33 AM [facility] REPOSITORY TYPE CODE TESTS RESULT OUT OF RANGE REFERENCE UNITS LAB L501.4100 15-37 U/L Low AST 14 Performed By: #### L500.2500, L500.4100, L501.4100, L501.4405, L501.9520, L506.0400 #### [facility] [address] [place], [place], [address] ALANINE AMINOTRANSFERAS Collected: 04/24/2018 Status: F Source: [place] (SGPT) 10:33 AM [facility] REPOSITORY TYPE CODE TESTS RESULT OUT OF RANGE REFERENCE UNITS LAB L501.4405 13-56 U/L Normal ALT 21 Performed By: #### L500.2500, L500.4100, L501.4100, L501.4405, L501.9520, L506.0400 #### [facility] [address] [place], [place], [address] THYROID STIM HORMONE Collected: 04/24/2018 Status: F Source: [place] (TSH) 10:33 AM [facility] REPOSITORY TYPE CODE TESTS RESULT OUT OF RANGE REFERENCE UNITS LAB L501.9520 0.358-3.74 uIU/mL Low TSH 0.18 Performed By: #### L500.2500, L500.4100, L501.4100, L501.4405, L501.9520, L506.0400 #### [facility] [address] [place], [place], [address] T4 FREE DIRECT Collected: 04/24/2018 Status: F Source: [place] 10:33 AM [facility] REPOSITORY TYPE CODE TESTS RESULT OUT OF RANGE REFERENCE UNITS LAB L506.0400 0.76-1.46 ng/dL Normal T4 FREE 1.22 DIRECT Performed By: #### L500.2500, L500.4100, L501.4100, L501.4405, L501.9520, L506.0400 #### [facility] [address] [place], [address] 12 LEAD ELECTROCARDIOGRAM Observed: 04/21/2018 Status: F Source: [place] 10:49 AM [facility] Cardiovascular Services [address] [place] [address] 12 Lead EKG 04/18/18 1501 MR#: [id number] Acct: [id number] Name: CLEM TORO Rep #: [id number] : 1945 72 From: Irving Mckenna MD Attending Dr: Zachery Liao MD Status: PRE [facility] Ordering Dr: Zachery Liao MD Date: 04/18/18 Location: [facility] Sex: F C Admitted: Test Reason : [...] Abnormal ECG Confirmed by BALA ENCINAS, IRVING ([id number]), online content editor ROMA HENRY ([id number]) on 04/21/2018 10:49:27 AM Referred By: Zachery Liao Confirmed By:IRVING MCKENNA MD 04/21/18 1049 Date Irving Mckenna MD CC: Marta Mccarthy MD; Zachery Liao MD Signed Observed: 04/20/2018 Status: F Source: [place] CDIFF (MOLECULAR) 4:07 PM [facility] REPOSITORY Cdiff-Molecular Normal Reference Range = Negative CALLED TO DR. LIAO 04/20/18 4989 BY [facility]. C. Diff DNA Positive-Toxigenic C. Difficile DNA Detected NAAT METHOD Testing was performed using nucleic acid amplification ORGANISM 1: Toxigenic C. difficile DNA Performed By: #### M100.6796 #### [facility] [address] [place], [address] ABDOMEN/PELVIS WITHOUT Observed: 04/04/2018 Status: F Source: [place] CONT 4:55 PM [facility] REPOSITORY [facility] Imaging Services [address] [place] [address] Abdomen/Pelvis without Cont MR#: [id number] Acct: [id number] Name: CLEM TORO Rep #: [id number] : 1945 F 72 From: Daphney Nuñez MD PCP: Marta Mccarthy MD Status: REG CLI Study: Abdomen/Pelvis without Cont Date of Exam: 04/04/18 Exam# [id number] Ordering Dr: Lexi Patiño INSTALLATION AND SERVICE TECHNICIAN-C STUDY: CT ABDOMEN AND PELVIS WITHOUT CONTRAST [...] CC: Marta Mccarthy MD; Lexi Patiño NP Dust Control Engineer: Signed Observed: 04/04/2018 Status: F Source: [place] CULTURE, URINE 4:00 PM [facility] REPOSITORY Urine Culture RESULTS CALLED TO AIDAN Leos 04/06/18 0837 [place] Youssef. Copy of report sent to Infection Control Printer [id number] 04/06/18 0838 BLANCHE. ORGANISM 1: Escherichia coli Downey Count >100,000 MARKER ESBL producing Organism Escherichia coli: REACTION Amikacin $ <=2 S Aztreonam $$$ 4 R Meropenem $ <=0.25 S (NF) indicates non-formulary drug at [facility]. Approval by Infectious Disease Specialist required [...] >=320 R (NF) indicates non-formulary drug at [facility]. Approval by Infectious Disease Specialist required before non-formulary drugs may be ordered and/or dispensed. Performed By: #### M100.0650 #### [facility] [address] [place], [address] Observed: 03/13/2018 Status: F Source: [place] CULTURE, URINE 9:40 AM [facility] REPOSITORY Urine Culture ORGANISM 1: Presumptive E. coli Downey Count >100,000 Presumptive E. coli: REACTION Amoxacillin/Clavulanic [...] <=20 S (NF) indicates non-formulary drug at [facility]. Approval by Infectious Disease Specialist required before non-formulary drugs may be ordered and/or dispensed. Performed By: #### M100.0650 #### [facility] [address] [place], [address] Observed: 2017 Status: F Source: [place] CULTURE, URINE 3:08 PM [facility] REPOSITORY Order Date: 12/26/17 Order Info: 630-4 - CUUR Urine Culture Copy of report sent to Infection Control Printer [id number] 12/31/17 0821 BLANCHE. RESULTS CALLED TO DEREK/ [phone] 01/02/18 0834 [place] Mikael. REPORT READ BACK BY SAME. ORGANISM 1: Escherichia coli Downey Count 11,000-25,000 MARKER ESBL producing Organism Escherichia coli: REACTION Amikacin $ <=2 S Aztreonam $$$ 4 R Meropenem $ <=0.25 S (NF) indicates non-formulary drug at [facility]. Approval by Infectious Disease Specialist required [...] >=320 R (NF) indicates non-formulary drug at [facility]. Approval by Infectious Disease Specialist required before non-formulary drugs may be ordered and/or dispensed. Performed By: #### M100.0650 #### [facility] [place], [address] Observed: 12/23/2017 Status: F Source: [place] CULTURE, URINE 12:30 PM [facility] REPOSITORY Order Date: 12/23/17 Order Info: 630-4 - [facility] Urine Culture RESULTS CALLED TO KINDRA () 12/26/17 0860 Geneva Helton. REPORT READ BACK BY SAME. Copy of report sent to Infection Control Printer [id number] 12/26/17 0855 MAYLIN. ORGANISM 1: Escherichia coli Downey Count 50,000-80,000 MARKER ESBL producing Organism Escherichia coli: REACTION Amikacin $ <=2 S Aztreonam $$$ 4 R Meropenem $ <=0.25 S (NF) indicates non-formulary drug at [facility]. Approval by Infectious Disease Specialist required [...] >=320 R (NF) indicates non-formulary drug at [facility]. Approval by Infectious Disease Specialist required before non-formulary drugs may be ordered and/or dispensed. Performed By: #### M100.0650 #### [facility] [address] [place], [address] PROGRESS Observed: 06/07/2017 Status: COMPLETED Source: [place] 3:47 PM [facility] REPOSITORY O ID: [id number] Author: Darlene Bass II Service: (none) Author Type: LABORATORY MACHINIST Type: Progress Notes Filed: 06/07/2017 3:49 PM [...] OD HOSP Observed: 06/07/2017 Status: COMPLETED Source: [place] 3:00 PM [facility] REPOSITORY Office Visit OPHT (OPTLOU) CLEM TORO ([id number]) 1945 F Date Time Provider Department 06/07/17 3:00 PM DARLENE BASS II OPTLOU During your visit today, we recorded the [...] eyes [H43.393] Order(s):VISUAL FIELD C-40 SCREENING OU [8505812] Order #: [id number]: 1 Prescriptions as of 06/07/2017 Sig: METFORMIN [...] CODE NAME / CODE REACTION SEVERITY SOURCE 05/08/2018 Drug meperidine Vomiting Unknown [facility] Allergy/937515279( HCl/[id number](R [facility]) XNORM) Hospital Repository 05/08/2018 Drug hydrocodone Vomiting Unknown [facility] Allergy/518218208( bitartrate/F0000 [facility]) 22935(RXNORM) Hospital Repository 05/08/2018 Drug Penicillins/F001 Unknown Unknown [place] Allergy/779330848( 087619(RXNORM) [facility]) Hospital Repository 05/08/2018 Drug morphine/F118067 Vomiting Unknown [facility] Allergy/042926306( 545(RXNORM) [facility] Hospital Repository 05/08/2018 Drug codeine/E8536964 Vomiting Unknown [place] Allergy/017909320( 50(RXNORM) [facility] SNOMED CT) Hospital Repository 05/08/2018 Drug acetaminophen/F0 Vomiting Unknown [facility] Allergy/404505797( 30356721(RXNORM) [facility] SNOMED CT) Hospital Repository 05/08/2018 Miscellaneous sodium penathol Other Unknown [place] Allergy/639614163( Community [facility]) Hospital Repository 06/26/2015 Drug sodium Unknown Unknown [facility] Allergy/115557369( phosphate/O58950 [facility]) 7397(RXNORM) Hospital Repository 10/09/2014 Environ/292937284( SEASONAL OTHER: SEE [place] SNOMED [facility]) [facility] Repository ENCOUNTERS ENCOUNTERS ADMIT/DISCHARGE ACCOUNT ADMITTING ENCOUNTER LOCATION SOURCE NUMBER CLASS 05/25/2018 [id number] [facility] Hospital ing:RAD.FUTUR Repository E 05/10/2018/05/10/19 [id number] [address] ing:SDCRoom: Repository AC16 05/04/2018 [id number] Ambulatory [facility] Hospital ing:LAB Repository 04/24/2018 [id number] Ambulatory [facility] Hospital ing:MFPLAB Repository 04/22/2018 [id number] [facility] 04/21/2018 [id number] [facility]MED[facility] Rep[facility] 04/20/2018 [id number] [facility]MED[facility]P Rep[facility] 04/19/2018 [id number] [facility] Hospital ing:MEDOUTP Repository 04/18/2018 [id number] [facility] ing:MEDOUTP Repository 04/18/2018 [id number] Ambulatory [facility] Repository 04/04/2018 [id number] Ambulatory [facility] Hospital ing:CT Repository 03/13/2018 [id number] [facility] ing:LABSPEC Repository 2017 [id number] [facility] ing:LABSPEC Repository 12/23/2017 [id number] [facility] ing:LABSPEC Repository 06/07/2017/08/11/19 [id number] Ambulatory [address] Repository PAYERS PAYERS ENCOUNTER GUARANTOR PAYER SUBSCRIBER SOURCE 05/25/2018 CLEM Morales Primary CLEM [place] [id number] TR Insurance:ANTHEM DENNYFFENDOB: [place]EN[place] [id number] [address]Dyb: ADVANTAPolicy Number: Repository [id number] (HP) Date:4935-34-37[id number] [place] [address] 18741PN: 05/25/2018 Secondary CLEM A Janie Insurance:MEDICAIDPol STEFFENDOB: [facility] icy Number: [id number] Hospital [id number] Repository Date:2018-05-23 05/25/2018 Tertiary NOT GIVENUNK Janie Insurance:SELF PAY [facility] Number: Effective Repository Date:2018-05-23 05/10/2018 CLEM A Primary CLEM [place] [id number] TR Insurance:ANTHEM DENNYFFENDOB: [place] [address] SEN[place] [id number] Memorial Hospital [address]Diy: ADVANTAPolicy Number: Repository [id number] (HP) Date:4456-77-80WZ [address], [place] [address]SH: 05/10/2018 Secondary CLEM A Janie Insurance:MEDICAIDPol STEFFENDOB: [facility] icy Number: [id number] Hospital [id number] Repository Date:2018-04-06 05/10/2018 Tertiary NOT GIVENUNK [place] Insurance:SELF PAY [facility] Number: Effective Repository Date:2018-04-06 05/04/2018 CLEM A Primary CLEM A Janie [id number] TR Insurance:ANTHEM STEFFENDOB: [place] [address] SEN[place] [id number] [place] [address]Hdy: ADVANTAPolicy Number: Repository [id number] (HP) Date:2911-14-97UJ [address] [place] [address] 68437KO: 05/04/2018 Secondary CLEM A [place] Insurance:MEDICAIDPol STEFFENDOB: Community icy Number: [id number] Hospital [id number] Repository Date:2018-05-04 05/04/2018 Tertiary NOT GIVENUNK Janie Insurance:SELF PAY [facility] Number: Effective Repository Date:2018-05-04 04/24/2018 CLEM A Primary CLEM A Janie [id number] TR Insurance:ANTHEM STEFFENDOB: [place] [address] SEN[place] [id number] Memorial Hospital [address]Nuv: ADVANTAPolicy Number: Repository [id number] (HP) Date:3405-73-53QI [id number] [place] [address] 27895RO: 04/24/2018 Secondary CLEM A Janie Insurance:MEDICAIDPol STEFFENDOB: Community icy Number: [id number] Hospital [id number] Repository Date:2018-04-24 04/24/2018 Tertiary NOT GIVENUNK [place] Insurance:SELF PAY [facility] Number: Effective Repository Date:2018-04-24 04/22/2018 CLEM A Primary CLEM A Janie [id number] TR Insurance:ANTHEM STEFFENDOB: [place] [address], [place] SEN[place] [id number] [facility] [place] [address]Xkv: ADVANTAPolicy Number: Repository [id number] (HP) Date:0919-28-94OS [id number] [place] [address] 93669QB: 04/22/2018 Secondary NOT GIVENUNK Janie Insurance:SELF PAY [facility] Number: Effective Repository Date:2018-04-17 04/21/2018 CLEM A Primary CLEM A [place] [id number] TR Insurance:CRUZ REZANDOB: [place] [address], [place] SEN[place] [id number] Memorial Hospital [address]Pgu: ADVANTAPolicy Number: Repository [id number] (HP) Date:7715-22-35HR [address] [place] [address] [place] [address]ZY: 04/21/2018 Secondary NOT GIVENUNK Janie Insurance:SELF PAY [facility] Number: Effective Repository Date:2018-04-17 04/20/2018 CLEM A Primary CLEM A Janie [id number] TR Insurance:CRUZ REZANDOB: [place] [address] SEN[place] [id number] Memorial Hospital [address]Vvj: ADVANTAPolicy Number: Repository [id number] (HP) Date:3163-68-39UA [address] [place] [address] 32944TO: 04/20/2018 Secondary CLEM A [place] Insurance:MEDICAIDPol STEFFENDOB: Community icy Number: [id number] Hospital [id number] Repository Date:2018-04-17 04/20/2018 Tertiary NOT GIVENUNK [place] Insurance:SELF PAY [facility]: Effective Repository Date:2018-04-17 04/19/2018 CLEM A Primary CLEM A [place] [id number] TR Insurance:CRUZ REZANDOB: [place] [address] SEN[place] [id number] Memorial Hospital [address]Pqt: ADVANTAPolicy Number: Repository [id number] (HP) Date:2991-60-39WE [address] [place] [address] [place] [address]YQ: 04/19/2018 Secondary CLEM A [place] Insurance:MEDICAIDPol STEFFENDOB: Community icy Number: [id number] Hospital [id number] Repository Date:2018-04-17 04/19/2018 Tertiary NOT GIVENUNK [place] Insurance:SELF PAY [facility] Number: Effective Repository Date:2018-04-17 04/18/2018 CLEM A Primary CLEM A [place] [id number] TR Insurance:ANTHEM DENNYSUDEEPNDOB: [place] [address], [place] SEN[place] [id number] Memorial Hospital [address]Uyd: ADVANTAPolicy Number: Repository [id number] (HP) Date:8090-26-73FT [address] [place] [address] 93497LL: 04/18/2018 Secondary NOT GIVENUNK [place] Insurance:SELF PAY [facility] Number: Effective Repository Date:2018-04-17 04/18/2018 CLEM A Primary CLEM A Janie [id number] TR Insurance:ANTHEM LIBIANDOB: [place] [address], [place] SEN[place] [id number] [place] [address]Vpw: ADVANTAPolicy Number: Repository [id number] (HP) Date:7515-83-29WV [address] [place] [address] 37520IS: 04/18/2018 Secondary NOT GIVENUNK [place] Insurance:SELF PAY [facility] Number: Effective Repository Date:2018-04-18 04/04/2018 CLEM A Primary CLEM A [place] [id number] TR Insurance:ANTHEM LIBIANDOB: [place] [address] [id number] [place] [address]Ztw: ADVANTAPolicy Number: Repository [id number] (HP) Date:0335-26-29NE [address] [place] [address] 81668DM: 04/04/2018 Secondary CLEM A Janie Insurance:MEDICAIDPol STEFFENDOB: [facility] Number: [id number] Hospital [id number] Repository Date:2018-04-04 04/04/2018 Tertiary NOT GIVENUNK [place] Insurance:SELF PAY [facility] Number: Effective Repository Date:2018-04-04 03/13/2018 CLEM A Primary CLEM A Janie [id number] TR Insurance:ANTHEM STEFFENDOB: [place] [address] SEN[place] [id number] Hospital [place] [address]Ruy: ADVANTAPolicy Number: Repository [id number] (HP) Date:4949-16-62MP [address] [place] [address] 56760FR: 03/13/2018 Secondary CLEM A [place] Insurance:MEDICAIDPol STEFFENDOB: Community icy Number: [id number] Hospital [id number] Repository Date:2018-03-13 03/13/2018 Tertiary NOT GIVENUNK [place] Insurance:SELF PAY [facility] Number: Effective Repository Date:2018-03-13 2017 CLEM A Primary CLEM A [place] [id number] TR Insurance:ANTHEM STEFFENDOB: [place] [address] SEN[place] [id number] Memorial Hospital [address]Vsr: ADVANTAPolicy Number: Repository [id number] (HP) Date:9555-71-30DY [address] [place] [address] 38776WX: 2017 Secondary CLEM A [place] Insurance:MEDICAIDPol STEFFENDOB: Community icy Number: [id number] Hospital [id number] Repository Date:2017 2017 Tertiary NOT GIVENUNK [place] Insurance:SELF PAY [facility] Number: Effective Repository Date:2017 12/23/2017 CLEM A Primary CLEM A [place] [id number] TR Insurance:ANTHEM STEFFENDOB: [place] [address] SEN[place] [id number] [place] [address]Qrv: ADVANTAPolicy Number: Repository [id number] (HP) Date:6337-26-55PI [address] [place] [address] 21488JU: 12/23/2017 Secondary CLEM A Jan[place] Insurance:MEDICAIDPol STEFFENDOB: Community icy Number: [id number] Hospital [id number] Repository Date:2017-12-23 12/23/2017 Tertiary NOT GIVENUNK [place] Insurance:SELF PAY [facility]: Effective Repository Date:2017-12-23
== END ==
PROVIDERS: Family Provider Family Medicine; PCP Family Medicine; Referring Provider Urology; Visit Provider Urology
DX: N39.0 Urinary tract infection, site not specified (principal)
CPT/HCPCS: 96365; J7050; A4216

== ENCOUNTER → 2018-04-19 13:31 | Outpatient (CLI) | payer MEDICARE, MEDICAID, SELFPAY ==
[2018-04-18 13:51] VITALS: BMI 32.7
[2018-04-19 13:57] VITALS: BP 123/79; PULSE 85; RESP 16; TEMP 36.8; O2SAT 96; BMI 32.5
--- OUTSIDE RECORDS SUMMARY | 2018-06-05 17:28 | XMS RPT_ITS ---
:1945 Author Organization OHIP Support Name Relationship Address Phone ASHLYN ESCALANTEE Unavailable [address] + [place] [address] R Unavailable Unavailable Unavailable WALT TOROONY Unavailable [address] + [place] [address] BORIS, MAINE Unavailable [address] + [place] [address] R Unavailable Unavailable Unavailable WALT TOROONY Unavailable [address] + [place] [address] BORIS, MAINE Unavailable [address] + [place] [address] R Unavailable Unavailable Unavailable WALT TOROONY Unavailable [address] + [place] [address] BORIS, MAINE Unavailable [address] + [place] [address] R Unavailable Unavailable Unavailable WALT TOROONY Unavailable [address] + [place] [address] BORIS, MAINE Unavailable [address] + [place] [address] R Unavailable Unavailable Unavailable WALT TOROONY Unavailable [address] + [place] [address] BORIS, MAINE Unavailable [address] + [place] [address] R Unavailable Unavailable Unavailable WALT TOROONY Unavailable [address] + [place] [address] BORIS, MAINE Unavailable [address] + [place] [address] R Unavailable Unavailable Unavailable WALT TOROONY Unavailable [address] + [place] [address] BORIS, MAINE Unavailable [address] + [place] [address] R Unavailable Unavailable Unavailable YOVANY, EVENS Unavailable [address] + [place] [address] Ana ESCALANTEVETTE Unavailable [address] + [place] [address] R Unavailable Unavailable Unavailable YOVANY, EVENS Unavailable [address] + [place] [address] Ana ESCALANTEVETTE Unavailable [address] + [place] [address] R Unavailable Unavailable Unavailable YOVANY, EVENS Unavailable [address] + [place] [id number] Ana ESCALANTEVETTE Unavailable [address] + [place] [address] R Unavailable Unavailable Unavailable YOVANY, EVENS Unavailable [address] + [place] [address] BORISAna DE LEÓNVETTE Unavailable [address] + [place] [address] R Unavailable Unavailable Unavailable YOVANY, EVENS Unavailable [address] + [place] [id number] BORIS ESCALANTETTE Unavailable [address] + [place] [address] R Unavailable Unavailable Unavailable YOVANY, EVENS Unavailable [address] + [place] [id number] [facility] Unavailable [address] + [place] [address] R Unavailable Unavailable Unavailable YOVANY, EVENS Unavailable [address] + [place] [address] Care Team Providers Name Role Phone DARLENE [...] Care Unavailable Joelle, James Attending Unavailable Joelle, Jamse Referring Unavailable [employer] Unavailable SchinJerome [...] 05/03/2018 Unknown R94.31 - Abnormal Mood[place], Active [place] electrocardiogram [facility] [ECG] [EKG] / Hospital R94.31(ICD-10) Repository 05/30/2018 Unknown N20.0 - Calculus of Kaylyn, Active [place] kidney / N20.0(ICD-10) Lexi [facility] Repository PROCEDURES PROCEDURES No Procedure Records FoundRESULTS RESULTS ABDOMEN SINGLE VIEW Observed: 05/25/2018 Status: F Source: [place] 2:18 PM [facility] REPOSITORY [facility] Imaging Services [address] [place] [address] Abdomen Single View MR#: [id number] Acct: [id number] Name: CLEM TORO Rep #: [id number] : 1945 F 72 From: Hugo Martínez MD PCP: Jerome Richard MD Status: REG CLI Study: Abdomen Single View Date of Exam: 05/25/18 Exam# [id number] Ordering Dr: Lexi Patiño CASEWORK SPECIALIST-C STUDY: X-RAY - ABDOMEN/PELVIS REASON FOR EXAM: [...] CC: Jerome Richard MD; Lexi Patiño NP Nuclear Reactor Operator: Signed BEDSIDE GLUCOSE Collected: 05/10/2018 Status: F Source: [place] 5:10 PM [facility] REPOSITORY TYPE CODE TESTS RESULT OUT OF RANGE REFERENCE UNITS LAB L501.080 70-110 mg/dL Normal BEDSIDE GLU 96 Result Comment: MANAGEMENT OF PATIENT CARE PER NURSING PROTOCOL Performed By: #### L501.080 #### [place] [facility] Laboratory Point of Care [address] [place] [address] OPERATIVE REPORT Observed: 05/10/2018 Status: F Source: [place] 4:40 PM [facility] REPOSITORY [facility] Medical Records Department [address] [place] [address] Operative Report 05/10/18 1638 MR#: [id number] Acct: [id number] Name: CLEM TORO Rep #: [id number] : 1945 72 From: Zachery Liao MD PCP: Jerome Richard MD Status: REG [facility] Y Location: [place] [address] Report of Operation Date of Procedure: 05/10/18 [...] DISCHARGE INSTRUCTION Observed: 05/10/2018 Status: F Source: [place] 4:29 PM [facility] REPOSITORY [facility] Medical Records Department [address] [place] [address] Instructions for Home/Discharge Instructions 05/10/18 1628 MR#: [id number] Acct: [id number] Name: CLEM TORO Rep #: [id number] : 1945 72 From: Zachery Liao MD [...] PO QHS 04/12/18 Fluticasone 0.05% [Flonase Nasal [place]] 1 spray NASAL DAILY PRN 04/12/18 Metformin [...] BEDSIDE GLUCOSE Collected: 05/10/2018 Status: F Source: [place] 1:10 PM [facility] REPOSITORY TYPE CODE TESTS RESULT OUT OF REFERENCE UNITS RANGE LAB L501.080 70-110 mg/dL High BEDSIDE GLU 113 Result Comment: MANAGEMENT OF PATIENT CARE PER NURSING PROTOCOL Performed By: #### L501.080 #### [facility] Point of Care [address] [place] [address] ABDOMEN SINGLE VIEW Observed: 05/10/2018 Status: F Source: [place] 12:32 PM [facility] REPOSITORY [facility] Imaging Services [address] [place] [address] Abdomen Single View MR#: [id number] Acct: [id number] Name: CLEM TORO Rep #: [id number] : 1945 F 72 From: Hugo Ordaz MD PCP: Jerome Richard MD Status: [facility] Study: Abdomen Single View Date of Exam: 05/10/18 Exam# [id number] Ordering Dr: Zachery Liao MD STUDY: X-RAY [...] CC: Jerome Richard MD; Zachery Liao MD Nuclear Reactor Operator: Signed Observed: 05/04/2018 Status: F Source: [place] CDIFF (MOLECULAR) 4:36 PM [facility] REPOSITORY Cdiff-Molecular Normal Reference Range = Negative C. Diff DNA Negative- No toxigenic C. Diff DNA Detected NAAT METHOD Testing was performed using nucleic acid amplification Performed By: #### M100.6796 #### [place] [facility] Laboratory [facility] Antonio [address] [place], [address] HEMOGLOBIN A1C Collected: 04/24/2018 Status: F Source: [place] 10:33 AM [facility] REPOSITORY TYPE CODE TESTS RESULT OUT OF RANGE REFERENCE UNITS LAB L501.9985 4.2-6.3 % High HGB A1C 6.4 Performed By: #### L501.9985 #### [facility] [address] [place], [place], [address] BASIC METABOLIC Collected: 04/24/2018 Status: F Source: [place] PROFILE (BMP) 10:33 AM [facility] REPOSITORY TYPE CODE TESTS RESULT OUT OF [...] L500.2500, L500.4100, L501.4100, L501.4405, L501.9520, L506.0400 #### [facility] [address] [place], [address] LIPID PROFILE Collected: 04/24/2018 Status: F Source: [place] 10:33 AM [facility] REPOSITORY TYPE CODE TESTS RESULT OUT OF [...] L500.2500, L500.4100, L501.4100, L501.4405, L501.9520, L506.0400 #### [facility] [address] [place], [place], [address] AST(SGOT) Collected: 04/24/2018 Status: F Source: [place] 10:33 AM [facility] REPOSITORY TYPE CODE TESTS RESULT OUT OF RANGE REFERENCE UNITS LAB L501.4100 15-37 U/L Low AST 14 Performed By: #### L500.2500, L500.4100, L501.4100, L501.4405, L501.9520, L506.0400 #### [facility] [address] [place], [place], [address] ALANINE AMINOTRANSFERAS Collected: 04/24/2018 Status: F Source: [place] (SGPT) 10:33 AM [facility] REPOSITORY TYPE CODE TESTS RESULT OUT OF RANGE REFERENCE UNITS LAB L501.4405 13-56 U/L Normal ALT 21 Performed By: #### L500.2500, L500.4100, L501.4100, L501.4405, L501.9520, L506.0400 #### [facility] [address] [place], [place], [address] THYROID STIM HORMONE Collected: 04/24/2018 Status: F Source: [place] (TSH) 10:33 AM [facility] REPOSITORY TYPE CODE TESTS RESULT OUT OF RANGE REFERENCE UNITS LAB L501.9520 0.358-3.74 uIU/mL Low TSH 0.18 Performed By: #### L500.2500, L500.4100, L501.4100, L501.4405, L501.9520, L506.0400 #### [facility] [address] [place], [place], [address] T4 FREE DIRECT Collected: 04/24/2018 Status: F Source: [place] 10:33 AM [facility] REPOSITORY TYPE CODE TESTS RESULT OUT OF RANGE REFERENCE UNITS LAB L506.0400 0.76-1.46 ng/dL Normal T4 FREE 1.22 DIRECT Performed By: #### L500.2500, L500.4100, L501.4100, L501.4405, L501.9520, L506.0400 #### [facility] [address] [place], [address] 12 LEAD ELECTROCARDIOGRAM Observed: 04/21/2018 Status: F Source: [place] 10:49 AM [facility] Cardiovascular Services [address] [place] [address] 12 Lead EKG 04/18/18 1501 MR#: [id number] Acct: [id number] Name: CLEM TORO Rep #: [id number] : 1945 72 From: Irving Mckenna MD Attending Dr: Zachery Liao MD Status: PRE [facility] Ordering Dr: Zachery Liao MD Date: 04/18/18 Location: [facility] Sex: F C Admitted: Test Reason : [...] Abnormal ECG Confirmed by BALA ENCINAS, IRVING ([id number]), city editor ROMA HENRY ([id number]) on 04/21/2018 10:49:27 AM Referred By: Zachery Liao Confirmed By:IRVING MCKENNA MD 04/21/18 1049 Date Irving Mckenna MD CC: Marta Mccarthy MD; Zachery Liao MD Signed Observed: 04/20/2018 Status: F Source: [place] CDIFF (MOLECULAR) 4:07 PM [facility] REPOSITORY Cdiff-Molecular Normal Reference Range = Negative CALLED TO DR. LIAO 04/20/18 0599 BY [facility]. C. Diff DNA Positive-Toxigenic C. Difficile DNA Detected NAAT METHOD Testing was performed using nucleic acid amplification ORGANISM 1: Toxigenic C. difficile DNA Performed By: #### M100.6796 #### [facility] [address] [place], [address] ABDOMEN/PELVIS WITHOUT Observed: 04/04/2018 Status: F Source: [place] CONT 4:55 PM [facility] REPOSITORY [facility] Imaging Services [address] [place] [address] Abdomen/Pelvis without Cont MR#: [id number] Acct: [id number] Name: CLEM TORO Rep #: [id number] : 1945 F 72 From: Daphney Nuñez MD PCP: Marta Mccarthy MD Status: REG CLI Study: Abdomen/Pelvis without Cont Date of Exam: 04/04/18 Exam# [id number] Ordering Dr: Lexi Patiño CASEWORK SPECIALIST-C STUDY: CT ABDOMEN AND PELVIS WITHOUT CONTRAST [...] CC: Marta Mccarthy MD; Lexi Patiño NP Nuclear Reactor Operator: Signed Observed: 04/04/2018 Status: F Source: [place] CULTURE, URINE 4:00 PM [facility] REPOSITORY Urine Culture RESULTS CALLED TO AIDAN Leos 04/06/18 0837 Cheyenne Youssef. Copy of report sent to Infection Control Printer [id number] 04/06/18 0838 BLANCHE. ORGANISM 1: Escherichia coli [place] Count >100,000 MARKER ESBL producing Organism Escherichia coli: REACTION Amikacin $ <=2 S Aztreonam $$$ 4 R Meropenem $ <=0.25 S (NF) indicates non-formulary drug at [facility]. Approval by Infectious Disease Specialist [...] >=320 R (NF) indicates non-formulary drug at [facility]. Approval by Infectious Disease Specialist required before non-formulary drugs may be ordered and/or dispensed. Performed By: #### M100.0650 #### [facility] [address] [place], [address] Observed: 03/13/2018 Status: F Source: [place] CULTURE, URINE 9:40 AM [facility] REPOSITORY Urine Culture ORGANISM 1: Presumptive E. coli [place] Count >100,000 Presumptive E. coli: REACTION Amoxacillin/Clavulanic [...] <=20 S (NF) indicates non-formulary drug at [facility]. Approval by Infectious Disease Specialist required before non-formulary drugs may be ordered and/or dispensed. Performed By: #### M100.0650 #### [facility] [address] [place], [address] Observed: 2017 Status: F Source: [place] CULTURE, URINE 3:08 PM [facility] REPOSITORY Order Date: 12/26/17 Order Info: 630-4 - CUUR Urine Culture Copy of report sent to Infection Control Printer [id number] 12/31/17 0821 BLANCHE. RESULTS CALLED TO DEREK/ [phone] 01/02/18 0834 [place] Mikael. REPORT READ BACK BY SAME. ORGANISM 1: Escherichia coli [place] Count 11,000-25,000 MARKER ESBL producing Organism Escherichia coli: REACTION Amikacin $ <=2 S Aztreonam $$$ 4 R Meropenem $ <=0.25 S (NF) indicates non-formulary drug at [facility]. Approval by Infectious Disease Specialist [...] >=320 R (NF) indicates non-formulary drug at [facility]. Approval by Infectious Disease Specialist required before non-formulary drugs may be ordered and/or dispensed. Performed By: #### M100.0650 #### [facility] [place], [address] Observed: 12/23/2017 Status: F Source: [place] CULTURE, URINE 12:30 PM [facility] REPOSITORY Order Date: 12/23/17 Order Info: 630-4 - CUUR Urine Culture RESULTS CALLED TO KINDRA () 12/26/17 0821 Geneva Helton. REPORT READ BACK BY SAME. Copy of report sent to Infection Control Printer [id number] 12/26/17 0855 MAYLIN. ORGANISM 1: Escherichia coli [place] Count 50,000-80,000 MARKER ESBL producing Organism Escherichia coli: REACTION Amikacin $ <=2 S Aztreonam $$$ 4 R Meropenem $ <=0.25 S (NF) indicates non-formulary drug at [facility]. Approval by Infectious Disease Specialist [...] >=320 R (NF) indicates non-formulary drug at [facility]. Approval by Infectious Disease Specialist required before non-formulary drugs may be ordered and/or dispensed. Performed By: #### M100.0650 #### [facility] [address] [place], [address] PROGRESS Observed: 06/07/2017 Status: COMPLETED Source: [place] 3:47 PM [facility] REPOSITORY O ID: [id number] Author: Darlene Bass II Service: (none) Author Type: PLANER MILL GRADER Type: Progress Notes Filed: 06/07/2017 3:49 PM [...] OD HOSP Observed: 06/07/2017 Status: COMPLETED Source: [place] 3:00 PM [facility] REPOSITORY Office Visit OPHT (OPTLOU) CLEM TORO ([id number]) 1945 F Date Time Provider Department 06/07/17 [...] eyes [H43.393] Order(s):VISUAL FIELD C-40 SCREENING OU [1602218] Order #: [id number]: 1 Prescriptions as of 06/07/2017 Sig: METFORMIN [...] SOURCE 05/08/2018 Drug meperidine Vomiting Unknown [place] Allergy/030557149( HCl/F875885186(R [facility] SNOM[facility]) XNORM) Hospital Repository 05/08/2018 Drug hydrocodone Vomiting Unknown [place] Allergy/946063486( bitartrate/F0000 [facility]) [address](RXNORM) Hospital Repository 05/08/2018 Drug Penicillins/F001 Unknown Unknown [place] Allergy/563517767( 773022(RXNORM) [facility]) Hospital Repository 05/08/2018 Drug morphine/S687601 Vomiting Unknown [place] Allergy/092801698( 545(RXNORM) [facility] Hospital Repository 05/08/2018 Drug codeine/B9987335 Vomiting Unknown [place] Allergy/488772093( 50(RXNORM) [facility] SNOMED CT) Hospital Repository 05/08/2018 Drug acetaminophen/F0 Vomiting Unknown [place] Allergy/397519651( 40714745(RXNORM) [facility] SNOMED CT) Hospital Repository 05/08/2018 Miscellaneous sodium penathol Other Unknown [place] Allergy/555982922( Community [facility]) Hospital Repository 06/26/2015 Drug sodium Unknown Unknown [place] Allergy/515138265( phosphate/B29365 [facility] SNOM[facility]) 7397(RXNORM) Hospital Repository 10/09/2014 Environ/939572193( SEASONAL OTHER: SEE [place] SNOMED CT) [facility] Repository ENCOUNTERS ENCOUNTERS ADMIT/DISCHARGE ACCOUNT ADMITTING ENCOUNTER LOCATION SOURCE NUMBER CLASS 05/25/2018 [id number] [facility] Hospital ing:RAD.FUTUR Repository E 05/10/2018/05/10/19 [id number] [address] ing:SDCRoom: Repository AC16 05/04/2018 [id number] Ambulatory General acute hospital Hospital ing:LAB Repository 04/24/2018 [id number] Ambulatory General acute hospital Hospital ing:MFPLAB Repository 04/22/2018 [id number] [facility] Repository 04/21/2018 [id number] [facility] ing[facility] Repository 04/20/2018 [id number] [facility] ing:MEDOUTP Repository 04/19/2018 [id number] [facility] Hospital ing:MEDOUTP Repository 04/18/2018 [id number] [facility] Hospital ing:MEDOUTP Repository 04/18/2018 [id number] Ambulatory BMSBuilding:[facility] Repository 04/04/2018 [id number] Ambulatory General acute hospital Hospital ing:CT Repository 03/13/2018 [id number] [facility] Hospital ing:LABSPEC Repository 2017 [id number] Community Hospital ing:LABSPEC Repository 12/23/2017 [id number] Community Hospital ing:LABSPEC Repository 06/07/2017/08/11/19 [id number] Ambulatory [address] Repository PAYERS PAYERS ENCOUNTER GUARANTOR PAYER SUBSCRIBER SOURCE 05/25/2018 CLEM Morales Primary CLEM [place] [id number] TR Insurance:ANTHEM DENNYFFENDOB: [place] SENIOR [id number] [facility] [address]Msb: ADVANTAPolicy Number: Repository [id number] (HP) Date:0655-36-96SU [address] [place] [address]PN: 05/25/2018 Secondary CLEM A [place] Insurance:MEDICAIDPol STEFFENDOB: [facility] icy Number: [id number] Hospital [id number] Repository Date:2018-05-23 05/25/2018 Tertiary NOT GIVENUNK [place] Insurance:SELF PAY [facility] Number: Effective Repository Date:2018-05-23 05/10/2018 CLEM A Primary CLEM Lima [id number] [address] Insurance:ANTHEM DENNYFFENDOB: Community [address], [place] SENIOR [id number] Medical Center [address]Orj: ADVANTAPolicy Number: Repository [id number] (HP) Date:5839-07-71[address], [place] [address]FP: 05/10/2018 Secondary CLEM A [place] Insurance:MEDICAIDPol STEFFENDOB: [facility] icy Number: [id number] Hospital [id number] Repository Date:2018-04-06 05/10/2018 Tertiary NOT GIVENUNK [place] Insurance:SELF PAY [facility] Number: Effective Repository Date:2018-04-06 05/04/2018 CLEM A Primary CLEM A [place] [id number] [address] Insurance:ANTHEM STEFFENDOB: Community [address], [place]IC[place] SENIOR [id number] [place] [address]Wsw: ADVANTAPolicy Number: Repository [id number] (HP) Date:0832-73-52FV [address] [place] [address]48[address]TG: 05/04/2018 Secondary CLEM A [place] Insurance:MEDICAIDPol STEFFENDOB: Community icy Number: [id number] Hospital [id number] Repository Date:2018-05-04 05/04/2018 Tertiary NOT GIVENUNK [place] Insurance:SELF PAY [facility] Number: Effective Repository Date:2018-05-04 04/24/2018 CLEM A Primary CLEM A [place] [id number] [address] Insurance:ANTHEM STEFFENDOB: Community [address], [place] SENIOR [id number] Medical Center [address]Zvw: ADVANTAPolicy Number: Repository [id number] (HP) Date:6683-92-93UF [address] [place] [address] 918[address]ST: 04/24/2018 Secondary CLEM A [place] Insurance:MEDICAIDPol STEFFENDOB: Community icy Number: [id number] Hospital [id number] Repository Date:2018-04-24 04/24/2018 Tertiary NOT GIVENUNK [place] Insurance:SELF PAY [facility] Number: Effective Repository Date:2018-04-24 04/22/2018 CLEM A Primary CLEM A Janie [id number] [address] Insurance:ANTHEM STEFFENDOB: Community [address], MED[place] SENIOR [id number] Hospital [place] [address]Nxo: ADVANTAPolicy Number: Repository [id number] (HP) Date:4164-84-68AO [address] [place] [address] 997[address]YS: 04/22/2018 Secondary NOT GIVENUNK [place] Insurance:SELF PAY [facility] Number: Effective Repository Date:2018-04-17 04/21/2018 CLEM A Primary CLEM A [place] [id number] [address] Insurance:CRUZ REZANDOB: Community [address] SEN[place] [id number] Medical Center [address]Qnk: ADVANTAPolicy Number: Repository [id number] (HP) Date:0658-47-80EY [address] [place] [address] [place] [id number]: 04/21/2018 Secondary NOT GIVENUNK [place] Insurance:SELF PAY [facility] Number: Effective Repository Date:2018-04-17 04/20/2018 CLEM A Primary CLME A [place] [id number] [address] Insurance:CRUZ REZANDOB: Community [address] SEN[place] [id number] Medical Center [address]Jvw: ADVANTAPolicy Number: Repository [id number] (HP) Date:9484-50-92MN [address] [place] [address] 005[address]JC: 04/20/2018 Secondary CLEM A [place] Insurance:MEDICAIDPol STEFFENDOB: Community icy Number: [id number] Hospital [id number] Repository Date:2018-04-17 04/20/2018 Tertiary NOT GIVENUNK [place] Insurance:SELF PAY [facility] Number: Effective Repository Date:2018-04-17 04/19/2018 CELM A Primary CLEM A [place] [id number] [address] Insurance:CRUZ REZANDOB: Community [address], [place] SENIOR [id number] Medical Center [address]Dpb: ADVANTAPolicy Number: Repository [id number] (HP) Date:0636-59-35BL [address] [place] [address] ID [id number]: 04/19/2018 Secondary CLEM A [place] Insurance:MEDICAIDPol STEFFENDOB: Community icy Number: [id number] Hospital [id number] Repository Date:2018-04-17 04/19/2018 Tertiary NOT GIVENUNK [place] Insurance:SELF PAY [facility] Number: Effective Repository Date:2018-04-17 04/18/2018 CLEM A Primary CLEM A [place] [id number] [address] Insurance:ANTHEM DENNYSUDEEPNDOB: Community [address], [place] SEN[place] [id number] Medical Center [address]Jxu: ADVANTAPolicy Number: Repository [id number] (HP) Date:1351-94-75LJ [address] [place] [address]VE: 04/18/2018 Secondary NOT GIVENUNK [place] Insurance:SELF PAY [facility] Number: Effective Repository Date:2018-04-17 04/18/2018 CLEM A Primary CLEM A [place] [id number] [address] Insurance:ANTHEM LIBIANDOB: Community [address] SENIOR [id number] Hospital [place] [address]Oer: ADVANTAPolicy Number: Repository [id number] (HP) Date:5133-71-55MU [address] [place] [address]59[address]GR: 04/18/2018 Secondary NOT GIVENUNK [place] Insurance:SELF PAY [facility] Number: Effective Repository Date:2018-04-18 04/04/2018 CLEM A Primary CLEM A [place] [id number] [address] Insurance:ANTHEM LIBIANDOB: Community [address] SENIOR [id number] [place] [address]Rtm: ADVANTAPolicy Number: Repository [id number] (HP) Date:9908-88-20WI [address] [place] [address]KX: 04/04/2018 Secondary CLEM A [place] Insurance:MEDICAIDPol STEFFENDOB: [facility] Number: [id number] Hospital [id number] Repository Date:2018-04-04 04/04/2018 Tertiary NOT GIVENUNK [place] Insurance:SELF PAY [facility] Number: Effective Repository Date:2018-04-04 03/13/2018 CLEM A Primary CLEM A [place] [id number] [address] Insurance:ANTHEM STEFFENDOB: Community [address] SENIOR [id number] Hospital [place] [address]Qsg: ADVANTAPolicy Number: Repository [id number] (HP) Date:9853-78-63KK [address] [place] [address] [id number]: 03/13/2018 Secondary CLEM A [place] Insurance:MEDICAIDPol STE[place]OB: Community icy Number: [id number] [facility] [id number] Repository Date:2018-03-13 03/13/2018 Tertiary NOT GIVENUNK [place] Insurance:SELF PAY [facility] Number: Effective Repository Date:2018-03-13 2017 CLEM A Primary CLEM A Janie [id number] Insurance:ANTHEM STEFF[place]OB: [place] MED[place] SEN[place] [id number] [id number]: ADVANTAPolicy Number: Repository [id number] (HP) Date:[id number] [address] [place] [address] [id number]: 2017 Secondary CLEM A [place] Insurance:MEDICAIDPol STE[place]OB: Community icy Number: [id number] Hospital [id number] Repository Date:2017 2017 Tertiary NOT GIVENUNK [place] Insurance:SELF PAY [facility] Number: Effective Repository Date:2017 12/23/2017 CLEM A Primary CLEM A [place] [id number] Insurance:ANTHEM STEFF[place]OB: [place] MEDIC[place] SEN[place] [id number] [place] [id number]: ADVANTAPolicy Number: Repository [id number] (HP) Date:[id number] [address] [place] [address] [id number]: 12/23/2017 Secondary CLEM A [place] Insurance:MEDICAIDPol STEFF[place]OB: Community icy Number: [id number] Hospital [id number] Repository Date:2017-12-23 12/23/2017 Tertiary NOT GIVENUNK [place] Insurance:SELF PAY [facility] Effective Repository Date:2017-12-23
== END ==
PROVIDERS: Family Provider Family Medicine; PCP Family Medicine; Referring Provider Urology; Visit Provider Urology
DX: N39.0 Urinary tract infection, site not specified (principal)
CPT/HCPCS: 96365; J7050; A4216

== ENCOUNTER → 2018-04-20 13:18 | Outpatient (CLI) | payer MEDICARE, MEDICAID, SELFPAY ==
[2018-04-19 13:57] VITALS: BMI 32.5
[2018-04-20 13:51] VITALS: BP 114/54; PULSE 94; RESP 16; TEMP 36.9; O2SAT 96; BMI 32.5
--- OUTSIDE RECORDS SUMMARY | 2018-06-06 09:21 | XMS RPT_ITS ---
:1945 Author Organization OHIP Support Name Relationship Address Phone ASHLYN ESCALANTEE Unavailable [address] + [place] [address] R Unavailable Unavailable Unavailable WALT TOROONY Unavailable [address] + [place] [address] BORIS, MAINE Unavailable [address] + [place] [address] R Unavailable Unavailable Unavailable WALT TOROONY Unavailable [address] + [place] [address] BORIS, MAINE Unavailable [address] + [place] [address] R Unavailable Unavailable Unavailable W[place] TOR[place]Y Unavailable [address] + [place] [address] BROIS, MAINE Unavailable [address] + [place] [address] R Unavailable Unavailable Unavailable W[place] TOROONY Unavailable [address] + [place] [address] BORIS, MAINE Unavailable [address] + [place] [address] R Unavailable Unavailable Unavailable W[place] TOROONY Unavailable [address] + [place] [address] BORIS, MAINE Unavailable [address] + [place] [address] R Unavailable Unavailable Unavailable W[place] TOROONY Unavailable [address] + [place] [address] BORIS, MAINE Unavailable [address] + [place] [address] R Unavailable Unavailable Unavailable W[place] TOR[place]ONY Unavailable [address] + [place] [address] BORIS, MAINE Unavailable [address] + [place] [address] R Unavailable Unavailable Unavailable YOVANY, EVENS Unavailable [address] + [place] [address] Ana ESCALANTEVETTE Unavailable [address] + [place] [address] R Unavailable Unavailable Unavailable YOVANY, EVENS Unavailable [address] + [place] [address] Ana ESCALANTEVETTE Unavailable [address] + [place] [address] R Unavailable Unavailable Unavailable YOVANY, EVENS Unavailable [address] + [place] 2[address] Ana ESCALANTEVETTE Unavailable [address] + [place] [address] R Unavailable Unavailable Unavailable YOVANY, EVENS Unavailable [address] + [place] [address] BORISAna DE LEÓNVETTE Unavailable [address] + [place] [address] R Unavailable Unavailable Unavailable YOVANY, EVENS Unavailable [address] + [place] [address] BORIS ESCALANTETTE Unavailable [address] + [place] [address] R Unavailable Unavailable Unavailable YOVANY, EVENS Unavailable [address] + [place] [address] [facility] Unavailable [address] + [place] [address] R Unavailable Unavailable Unavailable YOVANY, EVENS Unavailable [address] + [place] [address] Care Team Providers Name Role Phone DARLENE [...] Consulting Unavailable SchinJerome ferguson Primary Care Unavailable Moodispayoeslin, Irving Attending Unavailable Joelle, James Referring Unavailable Jolele, Zachery Rodgers Attending Unavailable Joelle, James Referring Unavailable Jolliff, Marta Primary Care Unavailable Kaylyn, Lexi Vences Attending Unavailable Kaylyn, Lexi Vangie Referring Unavailable SchinJerome ferguson Primary Care Unavailable PROBLEMS PROBLEMS DATE TYPE CONDITION / CODE ATTENDING STATUS SOURCE 05/03/2018 Unknown R94.31 - Abnormal Moodispaw, Active [place] electrocardiogram [facility] [ECG] [EKG] / Hospital R94.31(ICD-10) Repository 05/30/2018 Unknown N20.0 - Calculus of Kaylyn, Active [place] kidney / N20.0(ICD-10) Lexi Vences [facility] Repository PROCEDURES PROCEDURES No Procedure Records FoundRESULTS RESULTS ABDOMEN SINGLE VIEW Observed: 05/25/2018 Status: F Source: [place] 2:18 PM [facility] REPOSITORY [facility] Imaging Services [address] [place] [address] Abdomen Single View MR#: [id number] Acct: [id number] Name: CLEM TORO Rep #: [id number] : 1945 F 72 From: Hugo Martínez MD PCP: Jerome Richard MD Status: REG CLI Study: Abdomen Single View Date of Exam: 05/25/18 Exam# [id number] Ordering Dr: Lexi Patiño CAPTION WRITER-C STUDY: X-RAY - ABDOMEN/PELVIS REASON FOR EXAM: [...] CC: Jerome Richard MD; Lexi Patiño NP Statuary Painter: Signed BEDSIDE GLUCOSE Collected: 05/10/2018 Status: F Source: [place] 5:10 PM [facility] REPOSITORY TYPE CODE TESTS RESULT OUT OF RANGE REFERENCE UNITS LAB L501.080 70-110 mg/dL Normal BEDSIDE GLU 96 Result Comment: MANAGEMENT OF PATIENT CARE PER NURSING PROTOCOL Performed By: #### L501.080 #### [place] [facility] Laboratory Point of Care [address] [place] [address] OPERATIVE REPORT Observed: 05/10/2018 Status: F Source: JANIE 4:40 PM [facility] REPOSITORY [facility] Medical Records Department [address] [place] [address] Operative Report 05/10/18 1638 MR#: [id number] Acct: [id number] Name: CLEM TORO Rep #: [id number] : 1945 72 From: Zachery Liao MD PCP: Jerome Richard MD Status: [facility] [place] Location: [place] [address] Report of Operation Date of Procedure: 05/10/18 [...] DISCHARGE INSTRUCTION Observed: 05/10/2018 Status: F Source: [place] 4:29 PM [facility] REPOSITORY [facility] Medical Records Department [address] [place] [address] Instructions for Home/Discharge Instructions 05/10/18 1628 MR#: [id number] Acct: [id number] Name: CLEM TORO Rep #: [id number] : 1945 72 From: Zachery Liao MD [...] PO QHS 04/12/18 Fluticasone 0.05% [Flonase Nasal [place]] 1 spray NASAL DAILY PRN 04/12/18 Metformin [...] BEDSIDE GLUCOSE Collected: 05/10/2018 Status: F Source: [place] 1:10 PM [facility] REPOSITORY TYPE CODE TESTS RESULT OUT OF REFERENCE UNITS RANGE LAB L501.080 70-110 mg/dL High BEDSIDE GLU 113 Result Comment: MANAGEMENT OF PATIENT CARE PER NURSING PROTOCOL Performed By: #### L501.080 #### [facility] Laboratory Point of Care [address] [place] [address] ABDOMEN SINGLE VIEW Observed: 05/10/2018 Status: F Source: [place] 12:32 PM [facility] REPOSITORY [facility] Imaging Services [address] [place] [address] Abdomen Single View MR#: [id number] Acct: [id number] Name: CLEM TORO Rep #: [id number] : 1945 F 72 From: Hugo Ordaz MD PCP: Jerome Richard MD Status: [facility] Study: Abdomen Single View Date of Exam: 05/10/18 Exam# [id number] Ordering Dr: Zachery Liao MD STUDY: X-RAY [...] CC: Jerome Richard MD; Zachery Liao MD Statuary Painter: Signed Observed: 05/04/2018 Status: F Source: [place] CDIFF (MOLECULAR) 4:36 PM [facility] REPOSITORY Cdiff-Molecular Normal Reference Range = Negative C. Diff DNA Negative- No toxigenic C. Diff DNA Detected NAAT METHOD Testing was performed using nucleic acid amplification Performed By: #### M100.6796 #### [place] [facility] Antonio [place], [address] HEMOGLOBIN A1C Collected: 04/24/2018 Status: F Source: JANIE 10:33 AM [facility] REPOSITORY TYPE CODE TESTS RESULT OUT OF RANGE REFERENCE UNITS LAB L501.9985 4.2-6.3 % High HGB A1C 6.4 Performed By: #### L501.9985 #### [facility] [address] [place], [place], [address] BASIC METABOLIC Collected: 04/24/2018 Status: F Source: [place] PROFILE (BMP) 10:33 AM [facility] REPOSITORY TYPE CODE TESTS RESULT OUT OF [...] L500.2500, L500.4100, L501.4100, L501.4405, L501.9520, L506.0400 #### [facility] [address] [place], [address] LIPID PROFILE Collected: 04/24/2018 Status: F Source: [place] 10:33 AM [facility] REPOSITORY TYPE CODE TESTS RESULT OUT OF [...] L500.2500, L500.4100, L501.4100, L501.4405, L501.9520, L506.0400 #### [facility] [address] [place], [place], [address] AST(SGOT) Collected: 04/24/2018 Status: F Source: [place]IE 10:33 AM [facility] REPOSITORY TYPE CODE TESTS RESULT OUT OF RANGE REFERENCE UNITS LAB L501.4100 15-37 U/L Low AST 14 Performed By: #### L500.2500, L500.4100, L501.4100, L501.4405, L501.9520, L506.0400 #### [facility] [address] [place], [place], [address] ALANINE AMINOTRANSFERAS Collected: 04/24/2018 Status: F Source: [place] (SGPT) 10:33 AM [facility] REPOSITORY TYPE CODE TESTS RESULT OUT OF RANGE REFERENCE UNITS LAB L501.4405 13-56 U/L Normal ALT 21 Performed By: #### L500.2500, L500.4100, L501.4100, L501.4405, L501.9520, L506.0400 #### [facility] [address] [place], [place], [address] THYROID STIM HORMONE Collected: 04/24/2018 Status: F Source: [place] (TSH) 10:33 AM [facility] REPOSITORY TYPE CODE TESTS RESULT OUT OF RANGE REFERENCE UNITS LAB L501.9520 0.358-3.74 uIU/mL Low TSH 0.18 Performed By: #### L500.2500, L500.4100, L501.4100, L501.4405, L501.9520, L506.0400 #### [facility] [address] [place], [place], [address] T4 FREE DIRECT Collected: 04/24/2018 Status: F Source: [place] 10:33 AM [facility] REPOSITORY TYPE CODE TESTS RESULT OUT OF RANGE REFERENCE UNITS LAB L506.0400 0.76-1.46 ng/dL Normal T4 FREE 1.22 DIRECT Performed By: #### L500.2500, L500.4100, L501.4100, L501.4405, L501.9520, L506.0400 #### [facility] [address] [place], [address] 12 LEAD ELECTROCARDIOGRAM Observed: 04/21/2018 Status: F Source: [place] 10:49 AM [facility] Cardiovascular Services [address] [place] [address] 12 Lead EKG 04/18/18 1501 MR#: [id number] Acct: [id number] Name: CLEM TORO Rep #: [id number] : 1945 72 From: Irving Mckenna MD Attending Dr: Zachery Liao MD Status: [facility] [place] [facility]: Zachery Liao MD Date: 04/18/18 Location[place] [facility] Sex: F C Admitted: Test Reason : [...] Abnormal ECG Confirmed by BALA ENCINAS, IRVING ([id number]), editorial writer ROMA HENRY ([id number]) on 04/21/2018 10:49:27 AM Referred By: Zachery Liao Confirmed By:IRVING MCKENNA MD 04/21/18 1049 Date Irving Mckenna MD CC: Marta Mccarthy MD; Zachery Liao MD Signed Observed: 04/20/2018 Status: F Source: [place] CDIFF (MOLECULAR) 4:07 PM [facility] REPOSITORY Cdiff-Molecular Normal Reference Range = Negative CALLED TO DR. LIAO 04/20/18 0749 BY [facility]. C. Diff DNA Positive-Toxigenic C. Difficile DNA Detected NAAT METHOD Testing was performed using nucleic acid amplification ORGANISM 1: Toxigenic C. difficile DNA Performed By: #### M100.6796 #### [facility] [address] [place], [address] ABDOMEN/PELVIS WITHOUT Observed: 04/04/2018 Status: F Source: [place]ANIE CONT 4:55 PM [facility] REPOSITORY [facility] Imaging Services [address] [place] [address] Abdomen/Pelvis without Cont MR#: [id number] Acct: [id number] Name: CLEM TORO Rep #: [id number] : 1945 F 72 From: Daphney Nuñez MD PCP: Marta Mccarthy MD Status: REG CLI Study: Abdomen/Pelvis without Cont Date of Exam: 04/04/18 Exam# [id number] Ordering Dr: Lexi Patiño CAPTION WRITER-C STUDY: CT ABDOMEN AND PELVIS WITHOUT CONTRAST [...] CC: Marta Mccarthy MD; Lexi Patiño NP Statuary Painter: Signed Observed: 04/04/2018 Status: F Source: [place] CULTURE, URINE 4:00 PM [facility] REPOSITORY Urine Culture RESULTS CALLED TO AIDAN Leos 04/06/18 0837 Cheyenne Youssef. Copy of report sent to Infection Control Printer [id number] 04/06/18 0838 BLANCHE. ORGANISM 1: Escherichia coli Modale Count >100,000 MARKER ESBL producing Organism Escherichia coli: REACTION Amikacin $ <=2 S Aztreonam $$$ 4 R Meropenem $ <=0.25 S (NF) indicates non-formulary drug at [facility]. Approval by Infectious Disease Specialist [...] >=320 R (NF) indicates non-formulary drug at [facility]. Approval by Infectious Disease Specialist required before non-formulary drugs may be ordered and/or dispensed. Performed By: #### M100.0650 #### [facility] [address] [place], [address] Observed: 03/13/2018 Status: F Source: [place] CULTURE, URINE 9:40 AM [facility] REPOSITORY Urine Culture ORGANISM 1: Presumptive E. coli [place]ale Count >100,000 Presumptive E. coli: REACTION Amoxacillin/Clavulanic [...] <=20 S (NF) indicates non-formulary drug at [facility]. Approval by Infectious Disease Specialist required before non-formulary drugs may be ordered and/or dispensed. Performed By: #### M100.0650 #### [facility] [address] [place], [address] Observed: 2017 Status: F Source: JANIE CULTURE, URINE 3:08 PM [facility] REPOSITORY Order Date: 12/26/17 Order Info: 630-4 - CUUR Urine Culture Copy of report sent to Infection Control Printer [id number] 12/31/17 0821 BLANCHE. RESULTS CALLED TO DEREK/ [phone] 01/02/18 0834 Cheyenne Mikael. REPORT READ BACK BY SAME. ORGANISM 1: Escherichia coli Modale Count 11,000-25,000 MARKER ESBL producing Organism Escherichia coli: REACTION Amikacin $ <=2 S Aztreonam $$$ 4 R Meropenem $ <=0.25 S (NF) indicates non-formulary drug at [facility]. Approval by Infectious Disease Specialist [...] >=320 R (NF) indicates non-formulary drug at [facility]. Approval by Infectious Disease Specialist required before non-formulary drugs may be ordered and/or dispensed. Performed By: #### M100.0650 #### [facility] [place], [address] Observed: 12/23/2017 Status: F Source: [place] CULTURE, URINE 12:30 PM [facility] REPOSITORY Order Date: 12/23/17 Order Info: 630-4 - CUUR Urine Culture RESULTS CALLED TO KINDRA () 12/26/17 0825 Geneva Helton. REPORT READ BACK BY SAME. Copy of report sent to Infection Control Printer [id number] 12/26/17 0855 MAYLIN. ORGANISM 1: Escherichia coli Modale Count 50,000-80,000 MARKER ESBL producing Organism Escherichia coli: REACTION Amikacin $ <=2 S Aztreonam $$$ 4 R Meropenem $ <=0.25 S (NF) indicates non-formulary drug at [facility]. Approval by Infectious Disease Specialist [...] >=320 R (NF) indicates non-formulary drug at [facility]. Approval by Infectious Disease Specialist required before non-formulary drugs may be ordered and/or dispensed. Performed By: #### M100.0650 #### [facility] [address] [place], [address] PROGRESS Observed: 06/07/2017 Status: COMPLETED Source: [place] 3:47 PM [facility] REPOSITORY O ID: [id number] Author: Darlene Bass II Service: (none) Author Type: BURGLAR ALARM INSPECTOR Type: Progress Notes Filed: 06/07/2017 3:49 PM [...] OD HOSP Observed: 06/07/2017 Status: COMPLETED Source: [place] 3:00 PM [facility] REPOSITORY Office Visit OPHT (OPTLOU) CLEM TORO ([id number]) 1945 F Date Time Provider Department 06/07/17 [...] eyes [H43.393] Order(s):VISUAL FIELD C-40 SCREENING OU [6703749] Order #: [id number]: 1 Prescriptions as of 06/07/2017 Sig: METFORMIN [...] SOURCE 05/08/2018 Drug meperidine Vomiting Unknown [facility] Allergy/594507394( HCl/T781655415(R [facility]) XNORM) Hospital Repository 05/08/2018 Drug hydrocodone Vomiting Unknown [facility] Allergy/901327687( bitartrate/F0000 [facility]) 41094(RXNORM) Hospital Repository 05/08/2018 Drug Penicillins/F001 Unknown Unknown [facility] Allergy/987357955( 887461(RXNORM) [facility]) Hospital Repository 05/08/2018 Drug morphine/F285236 Vomiting Unknown [place]ie Allergy/042365261( 545(RXNORM) [facility] Hospital Repository 05/08/2018 Drug codeine/X5157188 Vomiting Unknown Janie Allergy/636510170( 50(RXNORM) [facility] SNOMED CT) Hospital Repository 05/08/2018 Drug acetaminophen/F0 Vomiting Unknown [place]ie Allergy/746875449( 62349989(RXNORM) [facility] SNOMED CT) Hospital Repository 05/08/2018 Miscellaneous sodium penathol Other Unknown [facility] Allergy/678252504( [facility]) Hospital Repository 06/26/2015 Drug sodium Unknown Unknown [facility] Allergy/349909335( phosphate/U95086 [facility]) 7397(RXNORM) Hospital Repository 10/09/2014 Environ/915446174( SEASONAL OTHER: SEE Stephan [place] SNOMED CT) [facility] Repository ENCOUNTERS ENCOUNTERS ADMIT/DISCHARGE ACCOUNT ADMITTING ENCOUNTER LOCATION SOURCE NUMBER CLASS 05/25/2018 [id number] General acute hospital Hospital ing:RAD.FUTUR Repository E 05/10/2018/05/10/19 [id number] [address] ing:SDCRoom: Repository AC16 05/04/2018 [id number] Ambulatory [facility] Hospital ing:LAB Repository 04/24/2018 [id number] Ambulatory [facility] Hospital ing:MFPLAB Repository 04/22/2018 [id number] [facility] Repository 04/21/2018 [id number] [facility] Repository 04/20/2018 [id number] [facility] ing:MEDOUTP Repository 04/19/2018 [id number] [facility] ing:MEDOUTP Repository 04/18/2018 [id number] [facility] ing:MEDOUTP Repository 04/18/2018 [id number] Ambulatory [facility] Repository 04/04/2018 [id number] Ambulatory [facility] Hospital ing:CT Repository 03/13/2018 [id number] [facility] ing:LABSPEC Repository 2017 [id number] [facility] ing:LABSPEC Repository 12/23/2017 [id number] [facility] ing:LABSPEC Repository 06/07/2017/08/11/19 [id number] Ambulatory [address] Repository PAYERS PAYERS ENCOUNTER GUARANTOR PAYER SUBSCRIBER SOURCE 05/25/2018 CLEM Morales Primary CLEM [place] [id number] TR Insurance:ANTHEM DENNYFFENDOB: [place] SEN[place] [id number] [address]Azm: ADVANTAPolicy Number: Repository [id number] (HP) Date:6076-43-49[address] [place] [address] 787[address]BA: 05/25/2018 Secondary CLEM A Janie Insurance:MEDICAIDPol STEFFENDOB: [facility] icy Number: [id number] Hospital [id number] Repository Date:2018-05-23 05/25/2018 Tertiary NOT GIVENUNK Janie Insurance:SELF PAY [facility] Number: Effective Repository Date:2018-05-23 05/10/2018 CLEM A Primary CLEM Lima [id number] TR Insurance:ANTHEM DENNYFFENDOB: Community [place], MED[place] SENIOR [id number] Indian Health Care Center [address]Itf: ADVANTAPolicy Number: Repository [id number] (HP) Date:6621-23-05[address], [place] [address]GO: 05/10/2018 Secondary CLEM A Janie Insurance:MEDICAIDPol STEFFENDOB: [facility] icy Number: [id number] Hospital [id number] Repository Date:2018-04-06 05/10/2018 Tertiary NOT GIVENUNK [facility] Insurance:SELF PAY [facility] Number: Effective Repository Date:2018-04-06 05/04/2018 CLEM A Primary CLEM A Janie [id number] [address] Insurance:ANTHEM STEFFENDOB: [place] SENIOR [id number] [place] [address]Qlz: ADVANTAPolicy Number: Repository [id number] (HP) Date:8894-12-65SU [address] [place] [address] 12[address]BN: 05/04/2018 Secondary CLEM A [place] Insurance:MEDICAIDPol STEFFENDOB: Community icy Number: [id number] [facility] [id number] Repository Date:2018-05-04 05/04/2018 Tertiary NOT GIVENUNK Janie Insurance:SELF PAY [facility] Number: Effective Repository Date:2018-05-04 04/24/2018 CLEM A Primary CLEM A Janie [id number] [address] Insurance:ANTHEM STEFFENDOB: Community [place], MED[place] SENIOR [id number] Indian Health Care Center [address]Pxq: ADVANTAPolicy Number: Repository [id number] (HP) Date:6209-08-60EG [address] [place] [address] 597[address]WZ: 04/24/2018 Secondary CLEM A Janie Insurance:MEDICAIDPol STEFFENDOB: Community icy Number: [id number] Hospital [id number] Repository Date:2018-04-24 04/24/2018 Tertiary NOT GIVENUNK [place] Insurance:SELF PAY [facility] Number: Effective Repository Date:2018-04-24 04/22/2018 CLEM A Primary CLEM A Janie [id number] [address] Insurance:ANTHEM STEFFENDOB: [place], [place] SENIOR [id number] [place] [address]Lkx: ADVANTAPolicy Number: Repository [id number] (HP) Date:4291-54-74DX [address] [place] [address] 465[address]BO: 04/22/2018 Secondary NOT GIVENUNK Janie Insurance:SELF PAY [facility] Number: Effective Repository Date:2018-04-17 04/21/2018 CLEM A Primary CLEM A [place] [id number] [address] Insurance:CRUZ ERZANDOB: Community [place], [place] SENIOR [id number] Indian Health Care Center [address]Fgb: ADVANTAPolicy Number: Repository [id number] (HP) Date:8676-22-29EQ [address] [place] [address] [place] [address]WL: 04/21/2018 Secondary NOT GIVENUNK Janie Insurance:SELF PAY [facility] Number: Effective Repository Date:2018-04-17 04/20/2018 CLEM A Primary CLEM A Janie [id number] TR Insurance:CRUZ REZANDOB: Community [place], [place] SEN[place] [id number] Indian Health Care Center [address]Wia: ADVANTAPolicy Number: Repository [id number] (HP) Date:5714-23-07UJ [address] [place] [address]65[address]HT: 04/20/2018 Secondary CLEM A [place] Insurance:MEDICAIDPol STEFFENDOB: Community icy Number: [id number] Hospital [id number] Repository Date:2018-04-17 04/20/2018 Tertiary NOT GIVENUNK [place] Insurance:SELF PAY [facility]: Effective Repository Date:2018-04-17 04/19/2018 CLEM A Primary CLEM A [place] [id number] TR Insurance:CRUZ REZANDOB: Community [place] SENIOR [id number] Indian Health Care Center [address]Mev: ADVANTAPolicy Number: Repository [id number] (HP) Date:9236-08-38CD [address] [place] [address] MS 24[address]FA: 04/19/2018 Secondary CLEM A Janie Insurance:MEDICAIDPol STEFFENDOB: Community icy Number: [id number] Hospital [id number] Repository Date:2018-04-17 04/19/2018 Tertiary NOT GIVENUNK Janie Insurance:SELF PAY [facility] Number: Effective Repository Date:2018-04-17 04/18/2018 CLEM A Primary CLEM A [place] [id number] TR Insurance:ANTHEM DENNYSUDEEPNDOB: Community [address], [place] SEN[place] [id number] Indian Health Care Center [address]Rlv: ADVANTAPolicy Number: Repository [id number] (HP) Date:5182-10-05UX [address] [place] [address]BM: 04/18/2018 Secondary NOT GIVENUNK [place] Insurance:SELF PAY [facility] Number: Effective Repository Date:2018-04-17 04/18/2018 CLEM A Primary CLEM A Janie [id number] [address] Insurance:ANTHEM LIBIANDOB: Community [address] SENIOR [id number] Hospital [place] [address]Emb: ADVANTAPolicy Number: Repository [id number] (HP) Date:2230-51-32WB [address] [place] [address] 94[address]EG: 04/18/2018 Secondary NOT GIVENUNK [place] Insurance:SELF PAY [facility] Number: Effective Repository Date:2018-04-18 04/04/2018 CLEM A Primary CLEM A [place] [id number] TR Insurance:ANTHEM LIBIANDOB: Community [address], MEDIC[place] SENIOR [id number] [place] [address]Krr: ADVANTAPolicy Number: Repository [id number] (HP) Date:0549-74-11EU [address] [place] [address] 45709VF: 04/04/2018 Secondary CLEM A Janie Insurance:MEDICAIDPol STEFFENDOB: [facility] [place] Number: [id number] Hospital [id number] Repository Date:2018-04-04 04/04/2018 Tertiary NOT GIVENUNK Janie Insurance:SELF PAY [facility] Number: Effective Repository Date:2018-04-04 03/13/2018 CLEM A Primary CLEM A Jnaie [id number] TR Insurance:ANTHEM STEFFENDOB: [place] [address] MEDIC[place] SENIOR [id number] [place] [address]Eua: ADVANTAPolicy Number: Repository [id number] (HP) Date:[id number] [address] [place] [address]AB: 03/13/2018 Secondary CLEM A [place] Insurance:MEDICAIDPol STEFFENDOB: Community icy Number: [id number] Hospital [id number] Repository Date:2018-03-13 03/13/2018 Tertiary NOT GIVENUNK [place] Insurance:SELF PAY [facility] Number: Effective Repository Date:2018-03-13 2017 CLEM A Primary CLEM A Janie [id number] TR Insurance:ANTHEM STEFFENDOB: [place] [address] SEN[place] [id number] [address]Cyg: ADVANTAPolicy Number: Repository [id number] (HP) Date:[id number] [address] [place] [address]XY: 2017 Secondary CLEM A Janie Insurance:MEDICAIDPol STEFFENDOB: Community icy Number: [id number] Hospital [id number] Repository Date:2017 2017 Tertiary NOT GIVENUNK Janie Insurance:SELF PAY [facility] Number: Effective Repository Date:2017 12/23/2017 CLEM A Primary CLEM A [place] [id number] TR Insurance:ANTHEM STEFFENDOB: [place] [address] MEDIC[place] SENIOR [id number] [place] [address]Yxm: ADVANTAPolicy Number: Repository [id number] (HP) Date:[id number] [address] [place] [address]SO: 12/23/2017 Secondary CLEM A Janie Insurance:MEDICAIDPol STE[place]OB: Community icy Number: [id number] Hospital [id number] Repository Date:2017-12-23 12/23/2017 Tertiary NOT GIVENUNK Janie [facility] Repository Date:2017-12-23
== END ==
PROVIDERS: Family Provider Family Medicine; PCP Family Medicine; Referring Provider Urology; Visit Provider Urology
DX: N39.0 Urinary tract infection, site not specified (principal); R19.7 Diarrhea, unspecified
CPT/HCPCS: 96365; 87493; A4216

== ENCOUNTER → 2018-04-24 10:31 | Outpatient (CLI) | payer MEDICARE, MEDICAID, SELFPAY ==
[2018-04-20 13:51] VITALS: BMI 32.5
[2018-04-24 12:42] LABS: Hemoglobin A1c 6.4 % (4.2-6.3)
[2018-04-24 12:44] LABS: AST(SGOT) 14 U/L (15-37); Alanine Aminotransfer ALT/SGPT 21 U/L (13-56); Anion Gap 8 (5-15); BUN 10 mg/dL (7-18); BUN/Creat Ratio 10.9 RATIO (10-20); Calcium,Total 8.9 mg/dL (8.5-10.1); Chloride 105 mmol/L (98-107); Cholesterol 157 mg/dL (200); Creatinine, Serum 0.92 mg/dL (0.55-1.02); EST Glomerular Filtration Rate 64 mL/min (>60); Est Glom Filt Rate - Afr Amer 77 mL/min (>60); Glucose 119 mg/dL (74-106); High Density Lipoprotein 52 mg/dL; Potassium 4.1 mmol/L (3.5-5.1); Sodium Level 143 mmol/L (136-145); T4 Free Direct 1.22 ng/dL (0.76-1.46); Thyroid Stim Hormone (TSH) 0.18 uIU/mL (0.358-3.74); Triglycerides 165 mg/dL; Very Low Density Lipoprotein 33 mg/dL (5-40)
--- OUTSIDE RECORDS SUMMARY | 2018-07-26 23:34 | XMS RPT_ITS ---
:1945 Author Organization OHIP Support Name Relationship Address Phone ASHLYN ESCALANTEE Unavailable [address] + [place] [address] R Unavailable Unavailable Unavailable WALT TOROONY Unavailable [address] + [place] [address] BORIS, MAINE Unavailable [address] + [place] [address] R Unavailable Unavailable Unavailable WALT TOROONY Unavailable [address] + [place] [address] BORIS, MAINE Unavailable [address] + [place] [address] R Unavailable Unavailable Unavailable WALT TOROONY Unavailable [address] + [place] [address] BORIS, MAINE Unavailable [address] + [place] [address] R Unavailable Unavailable Unavailable WALT TOROONY Unavailable [address] + [place] [address] BORIS, MAINE Unavailable [address] + [place] [address] R Unavailable Unavailable Unavailable WALT TOROONY Unavailable [address] + [place] [address] BORIS, MAINE Unavailable [address] + [place] [address] R Unavailable Unavailable Unavailable WALT TOROONY Unavailable [address] + [place] [address] BORIS, MAINE Unavailable [address] + [place] [address] R Unavailable Unavailable Unavailable WALT TOROONY Unavailable [address] + [place] [address] BORIS, MAINE Unavailable [address] + [place] [address] R Unavailable Unavailable Unavailable YOVANY, EVENS Unavailable [address] + [place] [address] Ana ESCALANTEVETTE Unavailable [address] + [place] [address] R Unavailable Unavailable Unavailable YOVANY, EVENS Unavailable [address] + [place] [address] Ana ESCALANTEVETTE Unavailable [address] + [place] [address] R Unavailable Unavailable Unavailable YOVANY, EVENS Unavailable [address] + [place] [phone] nAa ESCALANTEVETTE Unavailable [address] + [place] [address] R Unavailable Unavailable Unavailable YOVANY, EVENS Unavailable [address] + [place] [address] BORISAna DE LEÓNVETTE Unavailable [address] + [place] [address] R Unavailable Unavailable Unavailable YOVANY, EVENS Unavailable [address] + [place] [id number] BORIS ESCALANTETTE Unavailable [address] + [place] [address] R Unavailable Unavailable Unavailable YOVANY, EVENS Unavailable [address] + [place] [id number] [facility] Unavailable [address] + [place] [address] R Unavailable Unavailable Unavailable YOVANY, EVENS Unavailable [address] + [place] [address] Care Team Providers Name Role Phone DARLENE [...] Attending Unavailable Jolliff, Marta Primary Care Unavailable Irving Mckenna Attending Unavailable Joelle, James Referring Unavailable Joelle, James Attending Unavailable Joelle, James Referring Unavailable Jolliff, Marta Primary Care Unavailable Kaylyn, Lexi Vences Attending Unavailable Kaylyn, Lexi M Referring Unavailable SchinJerome ferguson Primary Care Unavailable Jolliff, Marta Attending Unavailable Jolliff, Marta Primary Care Unavailable Jolliff, Marta Attending Unavailable Jolliff, Marta Primary Care Unavailable Gonzalo Gongora Attending Unavailable Jolliff, Marta Primary Care Unavailable Kaylyn, Lexi Vences Attending Unavailable Kaylyn, Lexi M Referring Unavailable Jolliff, Marta Primary Care Unavailable Joelle, Zachery Rodgers Attending Unavailable Joelle, James Referring Unavailable Capo Guerra Unavailable Schinner, Jerome E Primary Care Unavailable PROBLEMS PROBLEMS DATE TYPE CONDITION / CODE ATTENDING STATUS SOURCE 05/03/2018 Unknown R94.31 - Abnormal Moodispaw, Active Janie electrocardiogram [facility] [ECG] [EKG] / Hospital R94.31(ICD-10) Repository 05/30/2018 Unknown N20.0 - Calculus of Kaylyn, Active Romance kidney / N20.0(ICD-10) Lexi Vences [facility] Repository PROCEDURES PROCEDURES No Procedure Records FoundRESULTS RESULTS ABDOMEN SINGLE VIEW Observed: 05/25/2018 Status: F Source: BENGE 2:18 PM [facility] REPOSITORY [facility] Imaging Services [address] [place] [address] Abdomen Single View MR#: [id number] Acct: [id number] Name: CLEM TORO Rep #: [id number] : 1945 F 72 From: Hugo Martínez MD PCP: Jerome Richard MD Status: REG CLI Study: Abdomen Single View Date of Exam: 05/25/18 Exam# [id number] Ordering Dr: Lexi Patiño SPONGE BUFFER-C STUDY: X-RAY - ABDOMEN/PELVIS REASON FOR EXAM: [...] CC: Jerome Richard MD; Lexi Patiño NP Gift Wrapper: Signed BEDSIDE GLUCOSE Collected: 05/10/2018 Status: F Source: JANIE 5:10 PM [facility] REPOSITORY TYPE CODE TESTS RESULT OUT OF RANGE REFERENCE UNITS LAB L501.080 70-110 mg/dL Normal BEDSIDE GLU 96 Result Comment: MANAGEMENT OF PATIENT CARE PER NURSING PROTOCOL Performed By: #### L501.080 #### Romance [facility] Laboratory Point of Care [address] [place] [address] OPERATIVE REPORT Observed: 05/10/2018 Status: F Source: JANIE 4:40 PM [facility] REPOSITORY [facility] Medical Records Department [address] [place] [address] Operative Report 05/10/18 1638 MR#: [id number] Acct: [id number] Name: CLEM TORO Rep #: [id number] : 1945 72 From: Zachery Liao MD PCP: Jerome Richard MD Status: [place] [facility] [place] Location: [place] [address] Report of Operation Date of Procedure: 05/10/18 [...] DISCHARGE INSTRUCTION Observed: 05/10/2018 Status: F Source: BENGE 4:29 PM [facility] REPOSITORY [facility] Medical Records Department [address] [place] [address] Instructions for Home/Discharge Instructions 05/10/18 1628 MR#: [id number] Acct: [id number] Name: CLEM TORO Rep #: [id number] : 1945 72 From: Zachery Liao MD [...] PO QHS 04/12/18 Fluticasone 0.05% [Flonase Nasal Stephenson] 1 spray NASAL DAILY PRN 04/12/18 Metformin [...] BEDSIDE GLUCOSE Collected: 05/10/2018 Status: F Source: BENGE 1:10 PM [facility] REPOSITORY TYPE CODE TESTS RESULT OUT OF REFERENCE UNITS RANGE LAB L501.080 70-110 mg/dL High BEDSIDE GLU 113 Result Comment: MANAGEMENT OF PATIENT CARE PER NURSING PROTOCOL Performed By: #### L501.080 #### [facility] Laboratory Point of Care [address] [place] [address] ABDOMEN SINGLE VIEW Observed: 05/10/2018 Status: F Source: BENGE 12:32 PM [facility] REPOSITORY [facility] Imaging Services [address] [place] [address] Abdomen Single View MR#: [id number] Acct: [id number] Name: CLEM TORO Rep #: [id number] : 1945 F 72 From: Hugo Ordaz MD PCP: Jerome Richard MD Status: [facility] Study: Abdomen Single View Date of Exam: 05/10/18 Exam# [id number] Ordering Dr: Zachery Liao MD STUDY: X-RAY [...] CC: Jerome Richard MD; Zachery Liao MD Gift Wrapper: Signed Observed: 05/04/2018 Status: F Source: JANIE CDIFF (MOLECULAR) 4:36 PM [facility] REPOSITORY Cdiff-Molecular Normal Reference Range = Negative C. Diff DNA Negative- No toxigenic C. Diff DNA Detected NAAT METHOD Testing was performed using nucleic acid amplification Performed By: #### M100.6796 #### Janie [facility] Laboratory [facility] Antonio [address] [place], [address] HEMOGLOBIN A1C Collected: 04/24/2018 Status: F Source: JANIE 10:33 AM [facility] REPOSITORY TYPE CODE TESTS RESULT OUT OF RANGE REFERENCE UNITS LAB L501.9985 4.2-6.3 % High HGB A1C 6.4 Performed By: #### L501.9985 #### [facility] Laboratory [address] [place], [place], [address] BASIC METABOLIC Collected: 04/24/2018 Status: F Source: JANIE PROFILE (BMP) 10:33 AM [facility] REPOSITORY TYPE CODE TESTS [...] L500.2500, L500.4100, L501.4100, L501.4405, L501.9520, L506.0400 #### [facility] Laboratory [address] [place], [address] LIPID PROFILE Collected: 04/24/2018 Status: F Source: JANIE 10:33 AM [facility] REPOSITORY TYPE CODE TESTS [...] L500.2500, L500.4100, L501.4100, L501.4405, L501.9520, L506.0400 #### [facility] [address] [place], [place], [address] AST(SGOT) Collected: 04/24/2018 Status: F Source: JANIE 10:33 AM [facility] REPOSITORY TYPE CODE TESTS RESULT OUT OF RANGE REFERENCE UNITS LAB L501.4100 15-37 U/L Low AST 14 Performed By: #### L500.2500, L500.4100, L501.4100, L501.4405, L501.9520, L506.0400 #### [facility] [address] [place], [place], [address] ALANINE AMINOTRANSFERAS Collected: 04/24/2018 Status: F Source: BENGE (SGPT) 10:33 AM [facility] REPOSITORY TYPE CODE TESTS RESULT OUT OF RANGE REFERENCE UNITS LAB L501.4405 13-56 U/L Normal ALT 21 Performed By: #### L500.2500, L500.4100, L501.4100, L501.4405, L501.9520, L506.0400 #### [facility] [address] [place], [place], [address] THYROID STIM HORMONE Collected: 04/24/2018 Status: F Source: BENGE (TSH) 10:33 AM [facility] REPOSITORY TYPE CODE TESTS RESULT OUT OF RANGE REFERENCE UNITS LAB L501.9520 0.358-3.74 uIU/mL Low TSH 0.18 Performed By: #### L500.2500, L500.4100, L501.4100, L501.4405, L501.9520, L506.0400 #### [facility] [address] [place], [place], [address] T4 FREE DIRECT Collected: 04/24/2018 Status: F Source: BENGE 10:33 AM [facility] REPOSITORY TYPE CODE TESTS RESULT OUT OF RANGE REFERENCE UNITS LAB L506.0400 0.76-1.46 ng/dL Normal T4 FREE 1.22 DIRECT Performed By: #### L500.2500, L500.4100, L501.4100, L501.4405, L501.9520, L506.0400 #### [facility] [address] [place], [address] 12 LEAD ELECTROCARDIOGRAM Observed: 04/21/2018 Status: F Source: BENGE 10:49 AM [facility] Cardiovascular Services [address] [place] [address] 12 Lead EKG 04/18/18 1501 MR#: [id number] Acct: [id number] Name: CLEM TORO Rep #: [id number] : 1945 72 From: Irving Mckenna MD Attending Dr: Zachery Liao MD Status: PRE [facility] Ordering Dr: Zachery Liao MD Date: 04/18/18 Location[place] [facility] Sex: F C Admitted: Test [...] Abnormal ECG Confirmed by BALA ENCINAS, IRVING ([id number]), purchase request editor ROMA HENRY ([id number]) on 04/21/2018 10:49:27 AM Referred By: Zachery Liao Confirmed By:IRVING MCKENNA MD 04/21/18 1049 Date Irving Mckenna MD CC: Marta Mccarthy MD; Zachery Liao MD Signed Observed: 04/20/2018 Status: F Source: BENGE CDIFF (MOLECULAR) 4:07 PM [facility] REPOSITORY Cdiff-Molecular Normal Reference Range = Negative CALLED TO DR. LIAO 04/20/18 0579 BY [facility]. C. Diff DNA Positive-Toxigenic C. Difficile DNA Detected NAAT METHOD Testing was performed using nucleic acid amplification ORGANISM 1: Toxigenic C. difficile DNA Performed By: #### M100.6796 #### [facility] [address] [place], [address] ABDOMEN/PELVIS WITHOUT Observed: 04/04/2018 Status: F Source: JANIE CONT 4:55 PM [facility] REPOSITORY [facility] Imaging Services [address] [place] [address] Abdomen/Pelvis without Cont MR#: [id number] Acct: [id number] Name: CLEM TORO Rep #: [id number] : 1945 F 72 From: Daphney Nuñez MD PCP: Marta Mccarthy MD Status: REG CLI Study: Abdomen/Pelvis without Cont Date of Exam: 04/04/18 Exam# [id number] Ordering Dr: Lexi Patiño SPONGE BUFFER-C STUDY: CT ABDOMEN AND PELVIS WITHOUT CONTRAST [...] CC: Marta Mccarthy MD; Lexi Patiño NP Gift Wrapper: Signed Observed: 04/04/2018 Status: F Source: BENGE CULTURE, URINE 4:00 PM [facility] REPOSITORY Urine Culture RESULTS CALLED TO AIDAN Leos 04/06/18 0837 Cheyenne Youssef. Copy of report sent to Infection Control Printer [id number] 04/06/18 0838 BLANCHE. ORGANISM 1: Escherichia coli Monroe Count >100,000 MARKER ESBL producing Organism Escherichia coli: REACTION Amikacin $ <=2 S Aztreonam $$$ 4 R Meropenem $ <=0.25 S (NF) indicates non-formulary drug at [facility]. Approval by Infectious Disease Specialist [...] >=320 R (NF) indicates non-formulary drug at [facility]. Approval by Infectious Disease Specialist required before non-formulary drugs may be ordered and/or dispensed. Performed By: #### M100.0650 #### [facility] [address] [place] [place], [address] Observed: 03/13/2018 Status: F Source: BENGE CULTURE, URINE 9:40 AM [facility] REPOSITORY Urine Culture ORGANISM 1: Presumptive E. coli Monroe Count >100,000 Presumptive E. coli: REACTION Amoxacillin/Clavulanic [...] <=20 S (NF) indicates non-formulary drug at [facility]. Approval by Infectious Disease Specialist required before non-formulary drugs may be ordered and/or dispensed. Performed By: #### M100.0650 #### [facility] [address] [place] [place], [address] Observed: 2017 Status: F Source: JANIE CULTURE, URINE 3:08 PM [facility] REPOSITORY Order Date: 12/26/17 Order Info: 630-4 - CUUR Urine Culture Copy of report sent to Infection Control Printer [id number] 12/31/17 0821 BLANCHE. RESULTS CALLED TO DEREK/ [phone] 01/02/18 0834 Cheyenne Mikael. REPORT READ BACK BY SAME. ORGANISM 1: Escherichia coli Monroe Count 11,000-25,000 MARKER ESBL producing Organism Escherichia coli: REACTION Amikacin $ <=2 S Aztreonam $$$ 4 R Meropenem $ <=0.25 S (NF) indicates non-formulary drug at [facility]. Approval by Infectious Disease Specialist [...] >=320 R (NF) indicates non-formulary drug at [facility]. Approval by Infectious Disease Specialist required before non-formulary drugs may be ordered and/or dispensed. Performed By: #### M100.0650 #### [facility] [place], [address] Observed: 12/23/2017 Status: F Source: BENGE CULTURE, URINE 12:30 PM [facility] REPOSITORY Order Date: 12/23/17 Order Info: 630-4 - CUUR Urine Culture RESULTS CALLED TO KINDRA () 12/26/17 0859 Geneva Helton. REPORT READ BACK BY SAME. Copy of report sent to Infection Control Printer [id number] 12/26/17 0855 MAYLIN. ORGANISM 1: Escherichia coli Monroe Count 50,000-80,000 MARKER ESBL producing Organism Escherichia coli: REACTION Amikacin $ <=2 S Aztreonam $$$ 4 R Meropenem $ <=0.25 S (NF) indicates non-formulary drug at [facility]. Approval by Infectious Disease Specialist [...] >=320 R (NF) indicates non-formulary drug at [facility]. Approval by Infectious Disease Specialist required before non-formulary drugs may be ordered and/or dispensed. Performed By: #### M100.0650 #### [facility] [address] [place], [address] PROGRESS Observed: 06/07/2017 Status: COMPLETED Source: ANDREAS 3:47 PM [facility] REPOSITORY O ID: [id number] Author: Darlene Bass II Service: (none) Author Type: FLIGHT/TRANSPORT NURSE Type: Progress Notes Filed: 06/07/2017 3:49 PM [...] OD HOSP Observed: 06/07/2017 Status: COMPLETED Source: ANDREAS 3:00 PM [facility] REPOSITORY Office Visit OPHT (OPTLOU) CLEM TORO ([id number]) 1945 F Date Time Provider Department 06/07/17 [...] eyes [H43.393] Order(s):VISUAL FIELD C-40 SCREENING OU [[id number]] Order #: [id number]: 1 Prescriptions as of 06/07/2017 Sig: METFORMIN [...] SOURCE 05/08/2018 Drug meperidine Vomiting Unknown Janie Allergy/647971112( HCl/L571633530(R [facility]) XNORM) Hospital Repository 05/08/2018 Drug hydrocodone Vomiting Unknown Janie Allergy/592339164( bitartrate/F0000 [facility]) 11536(RXNORM) Hospital Repository 05/08/2018 Drug Penicillins/F001 Unknown Unknown Romance Allergy/092554655( 214358(RXNORM) [facility] Hospital Repository 05/08/2018 Drug morphine/T375871 Vomiting Unknown Janie Allergy/253097861( 545(RXNORM) [facility] Hospital Repository 05/08/2018 Drug codeine/F8448968 Vomiting Unknown Janie Allergy/213982975( 50(RXNORM) [facility] SNOMED CT) Hospital Repository 05/08/2018 Drug acetaminophen/F0 Vomiting Unknown Janie Allergy/223989550( 36454904(RXNORM) [facility] SNOMED CT) Hospital Repository 05/08/2018 Miscellaneous sodium penathol Other Unknown Romance Allergy/996823394( Community [facility]) Hospital Repository 06/26/2015 Drug sodium Unknown Unknown Janie Allergy/601367297( phosphate/A54629 Community SNOM[facility]) 7397(RXNORM) Hospital Repository 10/09/2014 Environ/886639984( SEASONAL OTHER: SEE Stephan Snyder SNOMED CT) [facility] Repository ENCOUNTERS ENCOUNTERS ADMIT/DISCHARGE ACCOUNT ADMITTING ENCOUNTER LOCATION SOURCE NUMBER CLASS 05/25/2018 [id number] [facility] Hospital ing:RAD.FUTUR Repository E 05/10/2018/05/10/19 [id number] [address] ing:SDCRoom: Repository AC16 05/04/2018 [id number] Ambulatory General acute hospital Hospital ing:LAB Repository 04/24/2018 [id number] Ambulatory General acute hospital Hospital ing:MFPLAB Repository 04/22/2018 [id number] [facility] 04/21/2018 [id number] Ambulatory [facility] Hospital ing:MEDOUTP Repository 04/20/2018 [id number] Ambulatory [facility] Hospital ing:MEDOUTP Repository 04/19/2018 [id number] Ambulatory [facility] Hospital ing:MEDOUTP Repository 04/18/2018 [id number] Ambulatory [facility] Hospital ing:MEDOUTP Repository 04/18/2018 [id number] Ambulatory BMSBuilding:[facility] Repository 04/04/2018 [id number] Ambulatory General acute hospital Hospital ing:CT Repository 03/13/2018 [id number] [facility] ing:LABSPEC Repository 2017 [id number] [facility] ing:LABSPEC Repository 12/23/2017 [id number] [facility] ing:LABSPEC Repository 06/07/2017/08/11/19 [id number] Ambulatory [address] Repository PAYERS PAYERS ENCOUNTER GUARANTOR PAYER SUBSCRIBER SOURCE 05/25/2018 CLEM Morales Primary CLEM [place] [id number] [address] Insurance:ANTHEM DENNYFFENDOB: [place] SEN[place] [id number] [address]Wvt: ADVANTAPolicy Number: Repository [id number] (HP) Date:0547-41-45QO [id number] [place] [address]NZ: 05/25/2018 Secondary CLEM A Janie Insurance:MEDICAIDPol STEFFENDOB: [facility] icy Number: [id number] Hospital [id number] Repository Date:2018-05-23 05/25/2018 Tertiary NOT GIVENUNK Janie Insurance:SELF PAY [facility] Number: Effective Repository Date:2018-05-23 05/10/2018 CLEM A Primary CLEM Lima [id number] [address] Insurance:ANTHEM DENNYFFENDOB: Community [place], MEDIC[place] SENIOR [id number] Kaseman Hospital [address]Lff: ADVANTAPolicy Number: Repository [id number] (HP) Date:5516-50-44XN [address], [place] [address]LY: 05/10/2018 Secondary CLEM A Janie Insurance:MEDICAIDPol STEFFENDOB: [facility] icy Number: [id number] Hospital [id number] Repository Date:2018-04-06 05/10/2018 Tertiary NOT GIVENUNK Romance Insurance:SELF PAY [facility] Number: Effective Repository Date:2018-04-06 05/04/2018 CLEM A Primary CLEM A Janie [id number] [address] Insurance:ANTHEM STEFFENDOB: Community [place], MEDIC[place] SENIOR [id number] [place] [address]Uhx: ADVANTAPolicy Number: Repository [id number] (HP) Date:8351-77-61XL [address] [place] [address]95[address]QD: 05/04/2018 Secondary CLEM A Romance Insurance:MEDICAIDPol STEFFENDOB: Community icy Number: [id number] Hospital [id number] Repository Date:2018-05-04 05/04/2018 Tertiary NOT GIVENUNK Janie Insurance:SELF PAY [facility] Number: Effective Repository Date:2018-05-04 04/24/2018 CLEM A Primary CLEM A Janie [id number] [address] Insurance:ANTHEM STEFFENDOB: Community [address] SENIOR [id number] Kaseman Hospital [address]Yae: ADVANTAPolicy Number: Repository [id number] (HP) Date:8580-90-81DJ [id number] [place] [address]RN: 04/24/2018 Secondary CLEM A Janie Insurance:MEDICAIDPol STEFFENDOB: Community icy Number: [id number] Hospital [id number] Repository Date:2018-04-24 04/24/2018 Tertiary NOT GIVENUNK Romance Insurance:SELF PAY [facility] Number: Effective Repository Date:2018-04-24 04/22/2018 CLEM A Primary CLEM A Janie [id number] [address] Insurance:ANTHEM STEFFENDOB: Community [address], MED[place] SENIOR [id number] [place] [address]Wuf: ADVANTAPolicy Number: Repository [id number] (HP) Date:9190-58-05ZT [id number] [place] [address]AT: 04/22/2018 Secondary NOT GIVENUNK Janie Insurance:SELF PAY [facility] Number: Effective Repository Date:2018-04-17 04/21/2018 CLEM A Primary CLEM A Romance [id number] [address] Insurance:CRUZ REZANDOB: Community [address], [place] SENIOR [id number] Kaseman Hospital [address]Cbu: ADVANTAPolicy Number: Repository [id number] (HP) Date:1039-56-21GZ [address] [place] [address] [place] [address]LU: 04/21/2018 Secondary NOT GIVENUNK Janie Insurance:SELF PAY [facility] Effective Repository Date:2018-04-17 04/20/2018 CLEM A Primary CLEM A Janie [id number] [address] Insurance:CRUZ REZANDOB: Community [address] SEN[place] [id number] Kaseman Hospital [address]Loj: ADVANTAPolicy Number: Repository [id number] (HP) Date:1310-92-10UV [address] [place] [address]11[address]NK: 04/20/2018 Secondary CLEM A Romance Insurance:MEDICAIDPol STEFFENDOB: Community icy Number: [id number] Hospital [id number] Repository Date:2018-04-17 04/20/2018 Tertiary NOT GIVENUNK Romance Insurance:SELF PAY [facility] Effective Repository Date:2018-04-17 04/19/2018 CLEM A Primary CLEM A Romance [id number] [address] Insurance:CRUZ REZANDOB: Community [address] SENIOR [id number] [facility] Hospital [address]San: ADVANTAPolicy Number: Repository [id number] (HP) Date:4745-52-21OM [address] [place] [address] [place] [address]WC: 04/19/2018 Secondary CLEM A Janie Insurance:MEDICAIDPol STEFFENDOB: Community icy Number: [id number] Hospital [id number] Repository Date:2018-04-17 04/19/2018 Tertiary NOT GIVENUNK Janie Insurance:SELF PAY [facility] Number: Effective Repository Date:2018-04-17 04/18/2018 CLEM A Primary CLEM A Romance [id number] [address] Insurance:ANTHEM DENNYSUDEEPNDOB: Community [address] SENIOR [id number] Kaseman Hospital [address]Enw: ADVANTAPolicy Number: Repository [id number] (HP) Date:3028-26-01IR [address] [place] [address]OR: 04/18/2018 Secondary NOT GIVENUNK Romance Insurance:SELF PAY [facility] Number: Effective Repository Date:2018-04-17 04/18/2018 CLEM A Primary CLEM A Janie [id number] [address] Insurance:ANTHEM LIBIANDOB: Community [address] SENIOR [id number] Hospital [place] [address]Hgn: ADVANTAPolicy Number: Repository [id number] (HP) Date:7580-70-62OQ [address] [place] [address]YI: 04/18/2018 Secondary NOT GIVENUNK Romance Insurance:SELF PAY [facility] Number: Effective Repository Date:2018-04-18 04/04/2018 CLEM A Primary CLEM A Romance [id number] [address] Insurance:ANTHEM LIBIANDOB: Community [address], [place]ARE [facility] [id number] [facility] [place] [address]Tqu: [employer] Number: Repository [id number] (HP) Date:8616-31-30TB [address] [place] [address] 91456SS: 04/04/2018 Secondary CLEM A Janie Insurance:MEDICAIDPol STEFFENDOB: [facility] Number: [id number] [facility] [id number] Repository Date:2018-04-04 04/04/2018 Tertiary NOT GIVENUNK Janie Insurance:SELF PAY [facility] Number: Effective Repository Date:2018-04-04 03/13/2018 CLEM A Primary CLEM A Janie [id number] Insurance:ANTHEM STEFF[place]OB: [place] SENIOR [id number] [place] [address]Uvt: [employer] Number: Repository [id number] (HP) Date:9255-19-55SH [address] [place] [address] 66052ED: 03/13/2018 Secondary CLEM A Romance Insurance:MEDICAIDPol STEFFENDOB: Community icy Number: [id number] [facility] [id number] Repository Date:2018-03-13 03/13/2018 Tertiary NOT GIVENUNK Romance Insurance:SELF PAY [facility] Number: Effective Repository Date:2018-03-13 2017 CLEM A Primary CLEM A Janie [id number] Insurance:ANTHEM STEFFENDOB: [place] [id number] [address]Nvq: [employer] Number: Repository [id number] (HP) Date:8356-70-40VW [address] [place] [address] 34307HA: 2017 Secondary CLEM A Janie Insurance:MEDICAIDPol STEFFENDOB: Community icy Number: [id number] Hospital [id number] Repository Date:2017 2017 Tertiary NOT GIVENUNK Janie Insurance:SELF PAY [facility] Number: Effective Repository Date:2017 12/23/2017 CLEM A Primary CLEM A Romance [id number] TR Insurance:ANTHEM STEFFENDOB: [place] SEN[place] [id number] [place] [address]Zse: [employer] Number: Repository [id number] (HP) Date:6100-08-05OR [address] [place] [address] [id number]: 12/23/2017 Secondary CLEM A Janie Insurance:MEDICAIDPol STEFFENDOB: Community icy Number: [id number] Hospital [id number] Repository Date:2017-12-23 12/23/2017 Tertiary NOT GIVENUNK Janie Insurance:SELF PAY [facility] Effective Repository Date:2017-12-23
== END ==
PROVIDERS: Family Provider Family Medicine; PCP Family Medicine; Visit Provider Family Medicine
DX: I10 Essential (primary) hypertension (principal); E03.9 Hypothyroidism, unspecified; E78.5 Hyperlipidemia, unspecified; E11.9 Type 2 diabetes mellitus without complications
CPT/HCPCS: 36415; 80048; 80061; 83036; 84439; 84443; 84450; 84460

== ENCOUNTER → 2018-05-04 15:58 | Outpatient (CLI) | payer MEDICARE, MEDICAID, SELFPAY ==
[2018-04-20 13:51] VITALS: BMI 32.5
== END ==
PROVIDERS: Family Provider Family Medicine; PCP Family Medicine; Referring Provider Urology; Visit Provider Urology
DX: R19.5 Other fecal abnormalities (principal)
CPT/HCPCS: 87493

== ENCOUNTER 2018-05-10 12:21 | Day surgery (SDC) | payer MEDICARE, MEDICAID, SELFPAY ==
--- NOTE | 2018-04-18 14:57 | EKG12_ITS ---
Test Reason : PREOP Blood Pressure : / mmHG Vent. Rate : 087 BPM Atrial Rate : 087 BPM P-R Int : 150 ms QRS Dur : 080 ms QT Int : 380 ms P-R-T Axes : 062 073 041 degrees QTc Int : 457 ms Sinus rhythm with occasional Premature ventricular complexes ST & T wave abnormality, consider inferior ischemia Abnormal ECG Confirmed by BALA ENCINAS, AMARI ([id number]), editor publications ROMA HENRY ([id number]) on 04/21/2018 10:49:27 AM Referred By: Zachery Lai Confirmed By:AMARI MCKENNA MD
[2018-04-20 13:51] VITALS: BMI 32.5
--- NOTE | 2018-05-10 12:40 | RAD_ITS ---
STUDY: X-RAY - ABDOMEN/PELVIS REASON FOR EXAM: Female, 72 years old. Preop for kidney stones TECHNIQUE: Single AP view of the abdomen / pelvis. COMPARISON: None. FINDINGS: Multiple large stones noted in the right upper quadrant likely within the gallbladder. No demonstrated calcifications overlying the right renal shadow, there are faint calcifications overlying the left renal shadow. There is an unremarkable bowel gas pattern. There is no demonstrated free abdominal air. The visualized liver, spleen and kidneys are grossly normal in size and morphology. There are calcified phleboliths in the pelvis. There are diffuse degenerative changes of the visualized lumbar spine. RAD/Abdomen Single View IMPRESSION: Cholelithiasis Likely left nephrolithiasis Degenerative bony changes Electronically Signed: Danis Ordaz MD at 13:12 EST , Service support ,
[2018-05-10 13:13] VITALS: BP 145/83; PULSE 92; RESP 16; TEMP 36.5; O2SAT 99; BMI 34.0
[2018-05-10 13:31] LABS: Bedside Glucose 113 mg/dL (70-110)
--- NOTE | 2018-05-10 16:28 | PCM.DC.URO ---
Discharge Diet: Light diet - advance as tolerated Discharge Activity: Return to Normal Activity Allergies/Adverse Reactions: Allergies Penicillins Allergy (Verified 05/08/18 09:15) Unknown acetaminophen [From Vicodin] Adverse Reaction (Verified 05/08/18 09:15) Vomiting codeine Adverse Reaction (Verified 05/08/18 09:15) Vomiting hydrocodone bitartrate [From Vicodin] Adverse Reaction (Verified 05/08/18 09:15) Vomiting meperidine HCl [From Demerol] Adverse Reaction (Verified 05/08/18 09:15) Vomiting morphine Adverse Reaction (Verified 05/08/18 09:15) Vomiting sodium penathol Allergy (Uncoded 05/08/18 09:15) Other Medications to take at Discharge Amitriptyline HCl 50 mg PO QHS 06/26/15 Aspirin 325 mg PO DAILY@0800 06/26/15 Calcium Carbonate/Vitamin D3 [Calcium 500+D Tablet Chew] 500 mg PO DAILY 06/26/15 Cholecalciferol (VIT D3) [Vitamin D] 1,000 unit PO DAILY 06/26/15 Garlic 500 mg PO DAILY 06/26/15 Levothyroxine [Synthroid] 75 mcg PO DAILY 06/26/15 Metoprolol Tartrate [Lopressor (Beta Dylan)] 25 mg PO BID 06/26/15 Multivitamins,Ther W-Minerals [Multivitamin With Minerals] 1 tablet PO DAILY 06/26/15 Mycophenolate Mofetil [Cellcept] 500 mg PO BID 06/26/15 Simvastatin [Zocor] 40 mg PO QHS 06/26/15 Autoimmune C 1 tab PO QHS 04/12/18 Fluticasone 0.05% [Flonase Nasal [place]] 1 spray NASAL DAILY PRN 04/12/18 Metformin HCl [Metformin HCl ER] 500 mg PO DAILY 04/12/18 Acetaminophen [Tylenol Extra Strength] 500 mg PO Q4H PRN PRN #20 tablet 05/10/18 Ibuprofen 600 mg PO Q4H PRN PRN #20 tablet 05/10/18 The following prescriptions were given: Acetaminophen [Tylenol Extra Strength] 500 mg PO Q4H PRN PRN #20 tablet PRN Reason: Pain Ibuprofen 600 mg PO Q4H PRN PRN #20 tablet PRN Reason: Pain Orders to be completed after discharge: 12 Lead EKG [[facility]] Time Frame: 04/13/18, Location: None Selected Primary Care Physician: Jerome Richard MD [Primary Care Provider] - Test Results: Test results from this visit will be discussed in further detail at your follow-up appointment, if applicable. Please Follow Up With: Zachery Lai MD When: in 2 weeks, please call to make an appointment.
--- NOTE | 2018-05-10 16:38 | PCM.OPRPT ---
Report of Operation Date of Procedure: 05/10/18 Pre-Operative Diagnosis: Bilateral renal calculi Post-Operative Diagnosis: the same Surgery/Procedure Performed:: Right ESWL and left ESWL Description of Surgical Findings:: 72-year-old female has been having recurrent urinary tract infections and workup she was found to have bilateral renal stones we treated her infection the stones may be related to the infections were to proceed with shockwave lithotripsy. She was taken back to the operating room at the smooth induction of general anesthesia she was placed supine on the table we first localized the first stone in the right kidney the stone was behind the stones in her gallbladder we then were able to see the stone clearly we treated it with 2500 shockwaves stone broke up very nicely her first treatment cycle. We then went to the left side and she had several stones left kidney mid pole on the left side the stones were then treated with 3000 shockwaves rate of 120 power from 5-7 1 more monitoring the stone stones broke up really well decided not to leave a stent in both sides were treated broke up successfully and at this point we have stopped the procedure and the patient is undergoing reversal of her anesthesia. She will follow-up in a few weeks with a KUB. Type of Anesthesia:: General Drains: none - Admit VTE Documentation VTE Present on Admission: No VTE Mechan Device Prophylaxis: SCD's
[2018-05-10 16:46] VITALS: BP 114/65; BP 145/83; PULSE 90; RESP 18; TEMP 37.1; O2SAT 93
[2018-05-10 17:00] VITALS: BP 114/65; BP 145/83; PULSE 85; RESP 18; O2SAT 96
[2018-05-10 17:10] VITALS: BP 116/61; BP 145/83; PULSE 85; RESP 18; TEMP 36.7; O2SAT 95
[2018-05-10 17:16] LABS: Bedside Glucose 96 mg/dL (70-110)
[2018-05-10 17:30] VITALS: BP 145/83
== END 2018-05-10 17:45 | disposition home or self-care (01) ==
LOC: SDC 12:24 → AC 12:25
PROVIDERS: Family Provider Family Medicine; PCP Family Medicine; Referring Provider Urology; Visit Provider Urology
PROC: (CPT 50590; principal; 2018-05-10 14:30)
DX: N20.0 Calculus of kidney (principal); E11.9 Type 2 diabetes mellitus without complications; E07.9 Disorder of thyroid, unspecified; E78.00 Pure hypercholesterolemia, unspecified; Z79.899 Other long term (current) drug therapy; Z79.84 Long term (current) use of oral hypoglycemic drugs; Z79.82 Long term (current) use of aspirin; I10 Essential (primary) hypertension; G70.00 Myasthenia gravis without (acute) exacerbation; G47.31 Primary central sleep apnea; Z87.440 Personal history of urinary (tract) infections
CPT/HCPCS: 50590; 74018; 82962; 93005; J7120; J2405

== ENCOUNTER → 2018-05-25 14:15 | Outpatient (CLI) | payer MEDICARE, MEDICAID, SELFPAY ==
[2018-05-10 13:13] VITALS: BMI 34.0
--- NOTE | 2018-05-25 14:25 | RAD_ITS ---
STUDY: X-RAY - ABDOMEN/PELVIS REASON FOR EXAM: Female, 72 years old. Kidney stones. TECHNIQUE: Two AP supine views of the abdomen and pelvis. COMPARISON: AP supine view of the abdomen and pelvis May 10, 2018; CT abdomen and pelvis April 04, 2018. FINDINGS: Normal visualized lung bases. There is an unremarkable bowel gas pattern. There is no demonstrated free abdominal air. Rim calcified gallstones again project in the right upper quadrant. The bilateral renal calculi noted on CT are not clearly demonstrated here. Elongated right lobe of the liver again noted. The visualized spleen is grossly normal in size and morphology. There are calcified phleboliths in the pelvis. There are stable multilevel degenerative changes of the visualized spine as well as stable mild compression deformity of the second nonrib-bearing vertebra from the top. A transitional lumbosacral body also again noted.. RAD/Abdomen Single View IMPRESSION: 1. Bilateral nephrolithiasis demonstrated on CT is not apparent here. 2. Gallstones again noted. 3. Nonspecific bowel gas pattern. No free gas. 4. Stable degenerative changes of the spine, as well as stable compression deformity of an upper lumbar vertebra. Transitional lumbosacral body also again seen. Electronically Signed: Danis Martínez MD at 14:37 EST , Service support ,
--- OUTSIDE RECORDS SUMMARY | 2018-07-30 09:24 | XMS RPT_ITS ---
:1945 Author Organization OHIP Support Name Relationship Address Phone ASHLYN ESCALANTEE Unavailable [address] + [place] [address] R Unavailable Unavailable Unavailable WALT TOROONY Unavailable [address] + [place] [address] BORIS, MAINE Unavailable [address] + [place] [address] R Unavailable Unavailable Unavailable WALT TOROONY Unavailable [address] + [place] [address] BORIS, MAIEN Unavailable [address] + [place] [address] R Unavailable Unavailable Unavailable WALT TOROONY Unavailable [address] + [place] [address] BORIS, MAINE Unavailable [address] + [place] [address] R Unavailable Unavailable Unavailable WALT TOROONY Unavailable [address] + [place] [address] BORIS, MAINE Unavailable [address] + [place] [address] R Unavailable Unavailable Unavailable WALT TOROONY Unavailable [address] + [place] [address] BORIS, MAINE Unavailable [address] + [place] [address] R Unavailable Unavailable Unavailable WALT TOROONY Unavailable [address] + [place] [address] BORIS, MAINE Unavailable [address] + [place] [address] R Unavailable Unavailable Unavailable WALT TOROONY Unavailable [address] + [place] [address] BORIS, MAINE Unavailable [address] + [place] [address] R Unavailable Unavailable Unavailable YOVANY, EVENS Unavailable [address] + [place] [address] Ana ESCALANTEVETTE Unavailable [address] + [place] [address] R Unavailable Unavailable Unavailable YOVANY, EVENS Unavailable [address] + [place] [id number] Ana ESCALANTEVETTE Unavailable [address] + [place] [address] R Unavailable Unavailable Unavailable YOVANY, EVENS Unavailable [address] + [place] [id number] BORISAnaMAINE Unavailable [address] + [place] [address] R Unavailable Unavailable Unavailable YOVANY, EVENS Unavailable [address] + [place] [id number] Ana ESCALANTEVETTE Unavailable [address] + [place] [address] R Unavailable Unavailable Unavailable YOVANY, EVENS Unavailable [address] + [place] [id number] BORIS ESCALANTETTE Unavailable [address] + [place] [address] R Unavailable Unavailable Unavailable YOVANY, EVENS Unavailable [address] + [place] [id number] Ana ESCALANTEVETTE Unavailable [address] + [place] [address] R Unavailable Unavailable Unavailable YOVANY, EVENS Unavailable [address] + [place] [id number] Ana ESCALANTEVETTE Unavailable [address] + [place] [address] R Unavailable Unavailable Unavailable YOVANY, EVENS Unavailable [address] + [place] [id number] Care Team Providers Name Role Phone DARLENE BASS II Attending Unavailable JoelleZachery Attending Unavailable Zachery Liao Referring Unavailable Jolliff, Marta Primary Care Unavailable [...] Care Unavailable Jolliff, Marta Attending Unavailable Jolliff, Matra Primary Care Unavailable Jolliff, Marta Attending Unavailable Jolliff, Marta Primary Care Unavailable Gonzalo Gongora Attending Unavailable Jolliff, Marta Primary Care Unavailable KaylynLexi Attending Unavailable Kaylyn, Lexi M Referring Unavailable Jolliff, Marta Primary Care Unavailable Irving Mckenna Attending Unavailable Joelle, James Referring Unavailable Joelle, Zachery Rodgers Attending Unavailable Joelle, James Referring Unavailable Jolliff, Marta Primary Care Unavailable KaylynLexi Attending Unavailable Kaylyn Lexi M Referring Unavailable Schinner, Jerome E Primary Care Unavailable Jolliff, Marta Attending Unavailable Jolliff, Marta Referring Unavailable Schinner, Jerome E Primary Care Unavailable Joelle, Zachery Rodgers Attending Unavailable Joelle, James Referring Unavailable Capo Guerra Unavailable Schinner, Jerome E Primary Care Unavailable PROBLEMS PROBLEMS DATE TYPE CONDITION / CODE ATTENDING STATUS SOURCE 06/02/2018 Unknown Z12.31 - Encounter for Marta Mccarthy Active [place] screening mammogram [facility] for malignant neoplasm Hospital of breast / Repository Z12.31(ICD-10) 06/02/2018 Unknown N39.0 - Urinary tract Joelle, Zachery Active [place] infection, site not [facility] specified / Hospital N39.0(ICD-10) Repository 05/03/2018 Unknown R94.31 - Abnormal [place], Active [place] electrocardiogram [facility] [ECG] [EKG] / Hospital R94.31(ICD-10) Repository 05/30/2018 Unknown N20.0 - Calculus of Kaylyn, Active [place] kidney / N20.0(ICD-10) [facility] PROCEDURES PROCEDURES No Procedure Records FoundRESULTS RESULTS SCREENING MAMM (CAD), Observed: 06/02/2018 Status: F Source: JANIE BILAT 12:14 PM [facility] REPOSITORY [facility] Imaging Services [address] [place] [address] SCREENING MAMM (CAD), BILAT MR#: [id number] Acct: [id number] Name: CLEM TORO Rep #: [id number] : 1945 F 72 From: Wilfredo Bolivar MD PCP: Jerome Richard MD Status: REG CLI Study: SCREENING MAMM (CAD), BILAT Date of Exam: 06/02/18 Exam# [id number] Ordering Dr: Marta Mccarthy MD MAMMOGRAPHY - BILATERAL SCREENING REASON FOR EXAM: Female, 72 years old. Routine annual screening examination. PERTINENT HISTORY: Non-contributory. Remote right stereotactic and excisional breast biopsy. TECHNIQUE: Digital bilateral breast gia (3D mammographic acquisition) in the CC and MLO projections. 2-D mediolateral oblique (MLO) and craniocaudad (CC) views of both breasts were obtained. CAD: Full Field Digital Mammography with Computer Added Detection was performed. COMPARISON: Comparison is made with prior study dated April 01, 2017 and March 25, 2016. FINDINGS: Breast Composition: The breasts are almost entirely fatty. There are no dominant masses or suspicious calcifications. No other significant abnormalities are identified. There has been no significant change since the prior study. BI/SCREENING MAMM (CAD), BILAT IMPRESSION: Stable bilateral screening mammogram. Yearly follow-up mammogram recommended. (A) ASSESSMENT CATEGORY: BIRADS Category 1: Negative. A letter regarding these results will be sent to the patient by the facility within 30 days. Approximately 10% of breast cancers are not detected by mammography. A normal mammogram should not delay biopsy of a clinically suspicious abnormality. [id number] Electronically Signed: Wilfredo Bolivar MD at 13:40 EST , Service support , CC: Marta Mccarthy MD; Jerome Richard MD Fiberglass Roving Winder: Signed ABDOMEN SINGLE VIEW Observed: 05/25/2018 Status: F Source: JANIE 2:18 PM [facility] REPOSITORY [facility] Imaging Services [address] [place] [address] Abdomen Single View MR#: [id number] Acct: [id number] Name: CLEM TORO Rep #: [id number] : 1945 F 72 From: Hugo Martínez MD PCP: Jerome Richard MD Status: REG CLI Study: Abdomen Single View Date of Exam: 05/25/18 Exam# [id number] Ordering Dr: Lexi Patiño POULTRY FARMER EGG-C STUDY: X-RAY - ABDOMEN/PELVIS REASON FOR EXAM: [...] CC: Jerome Richard MD; Lexi Patiño NP Fiberglass Roving Winder: Signed BEDSIDE GLUCOSE Collected: 05/10/2018 Status: F Source: [place] 5:10 PM [facility] REPOSITORY TYPE CODE TESTS RESULT OUT OF RANGE REFERENCE UNITS LAB L501.080 70-110 mg/dL Normal BEDSIDE GLU 96 Result Comment: MANAGEMENT OF PATIENT CARE PER NURSING PROTOCOL Performed By: #### L501.080 #### [facility] Point of Care [address] [facility] [place] [address] OPERATIVE REPORT Observed: 05/10/2018 Status: F Source: JANIE 4:40 PM [facility] REPOSITORY [facility] Medical Records Department [address] [facility] [place] [address] Operative Report 05/10/18 1638 MR#: [id number] Acct: [id number] Name: CLEM TORO Rep #: [id number] : 1945 72 From: Zachery Liao MD PCP: Jerome Richard MD Status: [facility] Y Location: [place] [address] Report of Operation Date of Procedure: 05/10/18 [...] CC: Capo Guerra MD; Jerome Richard MD; Zacehry Liao MD Signed DISCHARGE INSTRUCTION Observed: 05/10/2018 Status: F Source: [place] 4:29 PM [facility] REPOSITORY [facility] Medical Records Department [address] [place] [address] Instructions for Home/Discharge Instructions 05/10/18 1628 MR#: [id number] Acct: [id number] Name: CLEM TORO Rep #: [id number] : 1945 72 From: Zachery Liao MD PCP: Jerome Richard MD Status: REG [facility] Discharge Diet: Light diet - advance as [...] PO QHS 04/12/18 Fluticasone 0.05% [Flonase Nasal [place]] 1 spray NASAL DAILY PRN 04/12/18 Metformin [...] please call to make an appointment. 05/10/18 9253 <Electronically signed by Zachery Liao MD> Date Zachery Liao MD CC: Capo Guerra MD; Jerome Richard MD Signed BEDSIDE GLUCOSE Collected: 05/10/2018 Status: F Source: JANIE 1:10 PM [facility] REPOSITORY TYPE CODE TESTS RESULT OUT OF REFERENCE UNITS RANGE LAB L501.080 70-110 mg/dL High BEDSIDE GLU 113 Result Comment: MANAGEMENT OF PATIENT CARE PER NURSING PROTOCOL Performed By: #### L501.080 #### [facility] Point [facility] [address] [place] [address] ABDOMEN SINGLE VIEW Observed: 05/10/2018 Status: F Source: JANIE 12:32 PM [facility] REPOSITORY [facility] Imaging Services [address] [place] [address] Abdomen Single View MR#: [id number] Acct: [id number] Name: YOVANYCLEM Andrew Rep #: [id number] : 1945 F 72 From: Hugo Ordaz MD PCP: Jerome Richard MD Status: [facility] Study: Abdomen Single View Date of Exam: 05/10/18 Exam# [id number] Ordering Dr: Zachery Liao MD STUDY: X-RAY [...] CC: Jerome Richard MD; Zachery Liao MD Fiberglass Roving Winder: Signed Observed: 05/04/2018 Status: F Source: JANIE CDIFF (MOLECULAR) 4:36 PM [facility] REPOSITORY Cdiff-Molecular Normal Reference Range = Negative C. Diff DNA Negative- No toxigenic C. Diff DNA Detected NAAT METHOD Testing was performed using nucleic acid amplification Performed By: #### M100.6796 #### [facility] [address] [place], [address] HEMOGLOBIN A1C Collected: 04/24/2018 Status: F Source: JANIE 10:33 AM [facility] REPOSITORY TYPE CODE TESTS RESULT OUT OF RANGE REFERENCE UNITS LAB L501.9985 4.2-6.3 % High HGB A1C 6.4 Performed By: #### L501.9985 #### [facility] [address] [facility] [place], [address] BASIC METABOLIC Collected: 04/24/2018 Status: F Source: JANIE PROFILE (BMP) 10:33 AM [facility] REPOSITORY TYPE CODE TESTS RESULT [...] L500.2500, L500.4100, L501.4100, L501.4405, L501.9520, L506.0400 #### [facility] [address] [place], [place], [address] LIPID PROFILE Collected: 04/24/2018 Status: F Source: [place] 10:33 [facility] REPOSITORY TYPE CODE TESTS RESULT [...] L500.2500, L500.4100, L501.4100, L501.4405, L501.9520, L506.0400 #### [facility] [address] [place], [place], [address] AST(SGOT) Collected: 04/24/2018 Status: F Source: [place] 10:33 AM [facility] REPOSITORY TYPE CODE TESTS RESULT OUT OF RANGE REFERENCE UNITS LAB L501.4100 15-37 U/L Low AST 14 Performed By: #### L500.2500, L500.4100, L501.4100, L501.4405, L501.9520, L506.0400 #### [facility] [address] [place], [place], [address] ALANINE AMINOTRANSFERAS Collected: 04/24/2018 Status: F Source: JANIE (SGPT) 10:33 AM [facility] REPOSITORY TYPE CODE TESTS RESULT OUT OF RANGE REFERENCE UNITS LAB L501.4405 13-56 U/L Normal ALT 21 Performed By: #### L500.2500, L500.4100, L501.4100, L501.4405, L501.9520, L506.0400 #### [facility] [address] [place], [place], [address] THYROID STIM HORMONE Collected: 04/24/2018 Status: F Source: JANIE (TSH) 10:33 AM [facility] REPOSITORY TYPE CODE TESTS RESULT OUT OF RANGE REFERENCE UNITS LAB L501.9520 0.358-3.74 uIU/mL Low TSH 0.18 Performed By: #### L500.2500, L500.4100, L501.4100, L501.4405, L501.9520, L506.0400 #### [facility] [address] [place], [place], [address] T4 FREE DIRECT Collected: 04/24/2018 Status: F Source: JANIE 10:33 AM [facility] REPOSITORY TYPE CODE TESTS RESULT OUT OF RANGE REFERENCE UNITS LAB L506.0400 0.76-1.46 ng/dL Normal T4 FREE 1.22 DIRECT Performed By: #### L500.2500, L500.4100, L501.4100, L501.4405, L501.9520, L506.0400 #### [facility] [address] [place], [place], [address] 12 LEAD ELECTROCARDIOGRAM Observed: 04/21/2018 Status: F Source: JANIE 10:49 AM [facility] REPOSITORY [facility] Cardiovascular Services [address] [address] 12 Lead EKG 04/18/18 1501 MR#: [id number] Acct: [id number] Name: CLEM TORO Rep #: [id number] : 1945 72 From: Irving Mckenna MD Attending Dr: Joelle ENCINAS,Zachery Rodgers Status: PRE SDC Ordering Dr: Zachery Liao MD Date: 04/18/18 Location: [facility] Sex: F C Admitted: Test Reason : [...] Abnormal ECG Confirmed by BALA ENCINAS, IRVING ([id number]), department editor ROMA HENRY ([id number]) on 04/21/2018 10:49:27 AM Referred By: Zachery Liao Confirmed By:IRVING MCKENNA MD 04/21/18 104 Date Irving Mckenna MD CC: Marta Mccarthy MD; Zachery Liao MD Signed Observed: 04/20/2018 Status: F Source: JANIE CDIFF (MOLECULAR) 4:07 PM [facility] REPOSITORY Cdiff-Molecular Normal Reference Range = Negative CALLED TO DR. LIAO 04/20/18 8229 [facility]. C. Diff DNA Positive-Toxigenic C. Difficile DNA Detected NAAT METHOD Testing was performed using nucleic acid amplification ORGANISM 1: Toxigenic C. difficile DNA Performed By: #### M100.6796 #### [facility] [address] [place], [address] ABDOMEN/PELVIS WITHOUT Observed: 04/04/2018 Status: F Source: JANIE CONT 4:55 PM [facility] REPOSITORY [facility] Imaging Services [address] [address] Abdomen/Pelvis without Cont MR#: [id number] Acct: [id number] Name: CLEM TORO Rep #: [id number] : 1945 F 72 From: Daphney Nuñez MD PCP: Marta Mccarthy MD Status: REG CLI Study: Abdomen/Pelvis without Cont Date of Exam: 04/04/18 Exam# [id number] Ordering Dr: Lexi Patiño POULTRY FARMER EGG-C STUDY: CT ABDOMEN AND PELVIS WITHOUT CONTRAST [...] CC: Marta Mccarthy MD; Lexi Patiño NP Fiberglass Roving Winder: Signed Observed: 04/04/2018 Status: F Source: JANIE CULTURE, URINE 4:00 PM [facility] REPOSITORY Urine Culture RESULTS CALLED TO AIDAN Leos 04/06/18 0837 Cheyenne Youssef. Copy of report sent to Infection Control Printer [id number] 04/06/18 0838 BLANCHE. ORGANISM 1: Escherichia coli Strabane Count >100,000 MARKER ESBL producing Organism Escherichia coli: REACTION Amikacin $ <=2 S Aztreonam $$$ 4 R Meropenem $ <=0.25 S (NF) indicates non-formulary drug at [facility]. Approval by Infectious Disease Specialist [...] >=320 R (NF) indicates non-formulary drug at [facility]. Approval by Infectious Disease Specialist required before non-formulary drugs may be ordered and/or dispensed. Performed By: #### M100.0650 #### [facility] [address] [place], [place], [address] Observed: 03/13/2018 Status: F Source: JANIE CULTURE, URINE 9:40 AM [facility] REPOSITORY Urine Culture ORGANISM 1: Presumptive E. coli [place] Count >100,000 Presumptive E. coli: REACTION Amoxacillin/Clavulanic [...] <=20 S (NF) indicates non-formulary drug at [facility]. Approval by Infectious Disease Specialist required before non-formulary drugs may be ordered and/or dispensed. Performed By: #### M100.0650 #### [facility] [address] [place], [address] Observed: 2017 Status: F Source: [place] CULTURE, URINE 3:08 PM [facility] REPOSITORY Order Date: 12/26/17 Order Info: 630-4 - CUUR Urine Culture Copy of report sent to Infection Control Printer [id number] 12/31/17 0821 TONYNNKATHE. RESULTS CALLED TO DEREK/ [phone] 01/02/18 0819 Cheyenne Youssef. REPORT READ BACK BY SAME. ORGANISM 1: Escherichia coli [place] Count 11,000-25,000 MARKER ESBL producing Organism Escherichia coli: REACTION Amikacin $ <=2 S Aztreonam $$$ 4 R Meropenem $ <=0.25 S (NF) indicates non-formulary drug at [facility]. Approval by Infectious Disease Specialist [...] >=320 R (NF) indicates non-formulary drug at [facility]. Approval by Infectious Disease Specialist required before non-formulary drugs may be ordered and/or dispensed. Performed By: #### M100.0650 #### [facility] [address], [address] Observed: 12/23/2017 Status: F Source: [place] CULTURE, URINE 12:30 PM [facility] REPOSITORY Order Date: 12/23/17 Order Info: 630-4 - CUUR Urine Culture RESULTS CALLED TO KINDRA () 12/26/17 0854 Geneva Helton. REPORT READ BACK BY SAME. Copy of report sent to Infection Control Printer [id number] 12/26/17 0868 MAYLIN. ORGANISM 1: Escherichia coli Strabane Count 50,000-80,000 MARKER ESBL producing Organism Escherichia coli: REACTION Amikacin $ <=2 S Aztreonam $$$ 4 R Meropenem $ <=0.25 S (NF) indicates non-formulary drug at [facility]. Approval by Infectious Disease Specialist [...] >=320 R (NF) indicates non-formulary drug at [facility]. Approval by Infectious Disease Specialist required before non-formulary drugs may be ordered and/or dispensed. Performed By: #### M100.0650 #### [facility] [address] [place], [address] PROGRESS Observed: 06/07/2017 Status: COMPLETED Source: [place]AY[place] 3:47 PM [facility] REPOSITORY HNO ID: [id number] Author: Darlene Bass II Service: (none) Author Type: WORKERS COMPENSATION PARALEGAL Type: Progress Notes Filed: 06/07/2017 3:49 PM [...] and treatment options. Darlene Bass, II, OD HOSP Observed: 06/07/2017 Status: COMPLETED Source: [place]AY[place] 3:00 PM [facility] REPOSITORY Office Visit OPHT (OPTLOU) ANGELITO TOROTenzin Morales ([id number]) 1945 F Date Time Provider Department 06/07/17 3:00 PM DARLENE BASS II OPTLOU During your visit today, we recorded the following information about you: Darlene Bass, JOHN, OD 06/07/2017 3:49 PM Signed ASSESSMENT/PLAN: 1. [...] eyes [H43.393] Order(s):VISUAL FIELD C-40 SCREENING OU [[id number]] Order #: [id number]: 1 Prescriptions as of 06/07/2017 Sig: METFORMIN [...] SOURCE 05/08/2018 Drug meperidine Vomiting Unknown [place] Allergy/105080986( HCl/S755178791(R [facility]) XNORM) Hospital Repository 05/08/2018 Drug hydrocodone Vomiting Unknown [place] Allergy/315038389( bitartrate/F0000 [facility]) 930[address](RXNORM) Hospital Repository 05/08/2018 Drug Penicillins/F001 Unknown Unknown [place] Allergy/916309563( 434657(RXNORM) [facility] SN[facility]) Hospital Repository 05/08/2018 Drug morphine/I065604 Vomiting Unknown [place] Allergy/898641778( 545(RXNORM) [facility]) Hospital Repository 05/08/2018 Drug codeine/U0171311 Vomiting Unknown [place] Allergy/303577890( 50(RXNORM) [facility] SN[facility]) Hospital Repository 05/08/2018 Drug acetaminophen/F0 Vomiting Unknown [place] Allergy/374479052( 32192419(RXNORM) [facility]) Hospital Repository 05/08/2018 Miscellaneous sodium penathol Other Unknown [place] Allergy/728311627( Community SN[facility]) Hospital Repository 06/26/2015 Drug sodium Unknown Unknown [place] Allergy/124501935( phosphate/B01078 Community SNOM[facility]) 7397(RXNORM) Hospital Repository 10/09/2014 Environ/682072978( SEASONAL OTHER: [facility] Repository ENCOUNTERS ENCOUNTERS ADMIT/DISCHARGE ACCOUNT ADMITTING ENCOUNTER LOCATION SOURCE NUMBER CLASS 06/02/2018 [id number] [facility] ing:OPBI Repository 05/25/2018 [id number] [facility] ing:RAD.FUTUR Repository E 05/10/2018/05/10/19 [id number] Ambulatory [address] Hospital[facility] Hospital ing:SDCRoom: Repository AC16 05/04/2018 [id number] Ambulatory [facility] ing:LAB Repository 04/24/2018 [id number] Ambulatory [facility] Hospital ing:MFPLAB Repository 04/22/2018 [id number] Ambulatory [facility] ing:MEDOUTP Repository 04/21/2018 [id number] Ambulatory [facility] ing:MEDOUTP Repository 04/20/2018 [id number] Ambulatory [facility] ing:MEDOUTP Repository 04/19/2018 [id number] Ambulatory [facility] ing:MEDOUTP Repository 04/18/2018 [id number] Ambulatory [facility] ing:MEDOUTP Repository 04/18/2018 [id number] Ambulatory BMSBuilding:[facility] Repository 04/04/2018 [id number] Ambulatory [facility] ing:CT Repository 03/13/2018 [id number] Ambulatory [facility] ing:LABSPEC Repository 2017 [id number] Ambulatory [facility] ing:LABSPEC Repository 12/23/2017 [id number] Ambulatory [facility] ing:LABSPEC Repository 06/07/2017/08/11/19 [id number] Ambulatory [address] Repository PAYERS PAYERS ENCOUNTER GUARANTOR PAYER SUBSCRIBER SOURCE 06/02/2018 CLEM Morales Primary CLEM A [place] [id number] TR Insurance:CRUZ BARAJAS: [place] SENIOR [id number] [address]Pvi: ADVANTAPolicy Number: Repository [id number] (HP) Date:[id number] [address]LG: 06/02/2018 Secondary CLEM A [place] Insurance:MEDICAIDPol STEFFENDOB: [facility] icy Number: [id number] Hospital [id number] Repository Date:2018-04-10 06/02/2018 Tertiary NOT GIVENUNK [place] Insurance:SELF PAY [facility] Number: Effective Repository Date:2018-04-10 05/25/2018 CLEM A Primary CLEM A [place] [id number] TR Insurance:ANTHEM STEFFENDOB: [place], [place] SEN[place] [id number] Medical Center [address]Pzz: ADVANTAPolicy Number: Repository [id number] (HP) Date:2402-38-31[address] [place] [address]HK: 05/25/2018 Secondary CLEM A [place] Insurance:MEDICAIDPol [facility] icy Number: [id number] Hospital [id number] Repository Date:2018-05-23 05/25/2018 Tertiary NOT GIVENUNK [place] Insurance:SELF PAY [facility] Number: Effective Repository Date:2018-05-23 05/10/2018 CLEM A Primary CLEM A [place] [id number] TR Insurance:ANTHEM LIBIANDOB: Community [place], [place]EN[place] [id number] Medical Center [address]Qlt: ADVANTAPolicy Number: Repository [id number] (HP) Date:4232-40-04CX [address] [place] [address]MP: 05/10/2018 Secondary CLEM A [place] Insurance:MEDICAIDPol STEFFENDOB: [facility] icy Number: [id number] Hospital [id number] Repository Date:2018-04-06 05/10/2018 Tertiary NOT GIVENUNK [place] Insurance:SELF PAY [facility] Number: Effective Repository Date:2018-04-06 05/04/2018 CLEM A Primary CLEM A [place] [id number] TR Insurance:ANTHEM DENNYFFENDOB: Community [place] SEN[place] [id number] Medical Center [address]Lsf: ADVANTAPolicy Number: Repository [id number] (HP) Date:1534-76-68EB [address] [place] [address]XA: 05/04/2018 Secondary CLEM A [place] Insurance:MEDICAIDPol STEFFENDOB: Community icy Number: [id number] Hospital [id number] Repository Date:2018-05-04 05/04/2018 Tertiary NOT GIVENUNK [place] Insurance:SELF PAY [facility] Number: Effective Repository Date:2018-05-04 04/24/2018 CLEM A Primary CLEM A [place] [id number] TR Insurance:ANTHNADINE REZANDOB: Community [place], [place]EN[place] [id number] Medical Center [address]Sxp: ADVANTAPolicy Number: Repository [id number] (HP) Date:5870-41-91RB [address] [place] [address] 93497AO: 04/24/2018 Secondary CLEM A Janie Insurance:MEDICAIDPol STEFFENDOB: [facility] icy Number: [id number] Hospital [id number] Repository Date:2018-04-24 04/24/2018 Tertiary NOT GIVENUNK [place] Insurance:SELF PAY [facility] Number: Effective Repository Date:2018-04-24 04/22/2018 CLEM A Primary CLEM A [place] [id number] TR Insurance:ANTHEM LIBIANDOB: [place] [address] SEN[place] [id number] [address]Sqt: ADVANTAPolicy Number: Repository [id number] (HP) Date:4431-31-99NB [address] [place] [address] 03683UX: 04/22/2018 Secondary NOT GIVENUNK [place] Insurance:SELF PAY [facility] Number: Effective Repository Date:2018-04-17 04/21/2018 CLEM A Primary CLME A [place] [id number] TR Insurance:ANTHEM LIBIANDOB: [place] [address] MED[place] SENIOR [id number] [place] [address]Yya: ADVANTAPolicy Number: Repository [id number] () Date:1996-55-34XJ [id number] [place] [address] 36899OF: 04/21/2018 Secondary NOT GIVENUNK Janie Insurance:SELF PAY [facility] Effective Repository Date:2018-04-17 04/20/2018 CLEM A Primary CLEM A [place] [id number] TR Insurance:ANTHEM STEFFENDOB: [place] [address], MED[place] SENIOR [id number] [place] [address]Zrm: ADVANTAPolicy Number: Repository [id number] () Date:2216-89-83EY [address], [place] [address]PU: 04/20/2018 Secondary CLEM A Janie Insurance:MEDICAIDPol STEFFENDOB: Community icy Number: [id number] Hospital [id number] Repository Date:2018-04-17 04/20/2018 Tertiary NOT GIVENUNK [place] Insurance:SELF PAY [facility]: Effective Repository Date:2018-04-17 04/19/2018 CLEM A Primary CLEM A [place] [id number] TR Insurance:ANTHNADINE REZANDOB: [place] [address], MED[place] SENIOR [id number] Medical Center [address]Pfl: ADVANTAPolicy Number: Repository [id number] () Date:4930-83-85CB [address] [place] [address]TY: 04/19/2018 Secondary CLEM A Janie Insurance:MEDICAIDPol STEFFENDOB: Community icy Number: [id number] Hospital [id number] Repository Date:2018-04-17 04/19/2018 Tertiary NOT GIVENUNK [place] Insurance:SELF PAY [facility] Number: Effective Repository Date:2018-04-17 04/18/2018 CLEM A Primary CLEM A [place] [id number] TR Insurance:ANTHEM JUANOB: [place] [address], MEDIC[place] SENIOR [id number] [place] [address]Gpf: ADVANTAPolicy Number: Repository [id number] () Date:5257-12-30CX [address] [place] [address] 03152LC: 04/18/2018 Secondary CLEM A [place] Insurance:MEDICAIDPol STEFFENDOB: Community icy Number: [id number] Hospital [id number] Repository Date:2018-04-17 04/18/2018 Tertiary NOT GIVENUNK [place] Insurance:SELF PAY [facility] Number: Effective Repository Date:2018-04-17 04/18/2018 CLEM A Primary CLEM A [place] [id number] TR Insurance:CRUZ REZANDOB: [place] [address], MEDIC[place] SENIOR [id number] Medical Center [address]Myn: ADVANTAPolicy Number: Repository [id number] (HP) Date:3602-29-92MW [id number] [place] [address] 04689VK: 04/18/2018 Secondary NOT GIVENUNK [place] Insurance:SELF PAY [facility] Number: Effective Repository Date:2018-04-18 04/04/2018 CLEM A Primary CLEM A [place] [id number] [address] Insurance:CRUZ REZANDOB: [place] [address], MEDIC[place] SEN[place] [id number] [place] [address]Ilr: ADVANTAPolicy Number: Repository [id number] () Date:3345-02-16HF [id number] [place] [address] 33868DA: 04/04/2018 Secondary CLEM A Janie Insurance:MEDICAIDPol STEFFENDOB: Community icy Number: [id number] Hospital [id number] Repository Date:2018-04-04 04/04/2018 Tertiary NOT GIVENUNK [place] Insurance:SELF PAY [facility] Number: Effective Repository Date:2018-04-04 03/13/2018 CLEM A Primary CLEM A [place] [id number] [address] Insurance:ANTHEM STEFFENDOB: [place] [address], MEDIC[place] SENIOR [id number] [place] [address]Tky: ADVANTAPolicy Number: Repository [id number] (HP) Date:2287-76-41JH [id number] [place] [address] 98685LV: 03/13/2018 Secondary CLEM A [place] Insurance:MEDICAIDPol STEFFENDOB: Community icy Number: [id number] Hospital [id number] Repository Date:2018-03-13 03/13/2018 Tertiary NOT GIVENUNK [place] Insurance:SELF PAY [facility] Number: Effective Repository Date:2018-03-13 2017 CLEM A Primary CLEM A Janie [id number] [address] Insurance:ANTHEM STEFFENDOB: [place] [address], [place] SEN[place] [id number] Medical Center [address]Wak: ADVANTAPolicy Number: Repository [id number] (HP) Date:1614-23-61HH [id number] [place] [address] 99221DK: 2017 Secondary CLEM A [place] Insurance:MEDICAIDPol STEFFENDOB: Community icy Number: [id number] Hospital [id number] Repository Date:2017 2017 Tertiary NOT GIVENUNK [place] Insurance:SELF PAY [facility] Number: Effective Repository Date:2017 12/23/2017 CLEM A Primary CLEM A [place] [id number] TR Insurance:ANTHEM STEFFENDOB: [place] [address], MEDIC[place] SENIOR [id number] [place] [address]Uki: ADVANTAPolicy Number: Repository [id number] (HP) Date:6794-10-22MQ [address], [place] [address]GR: 12/23/2017 Secondary CLEM A [place] Insurance:MEDICAIDPol STEFFENDOB: Community icy Number: [id number] Hospital [id number] Repository Date:2017-12-23 12/23/2017 Tertiary NOT GIVENUNK [place] Insurance:SELF PAY [facility] Number: Effective Repository Date:2017-12-23
== END ==
PROVIDERS: Family Provider Family Medicine; PCP Family Medicine; Referring Provider Nurse Practitioner Adult Health; Visit Provider Nurse Practitioner Adult Health
DX: N20.0 Calculus of kidney (principal)
CPT/HCPCS: 74018

== ENCOUNTER → 2018-06-02 12:11 | Outpatient (CLI) | payer MEDICARE, MEDICAID, SELFPAY ==
[2018-05-10 13:13] VITALS: BMI 34.0
--- NOTE | 2018-06-02 12:13 | BI_ITS ---
MAMMOGRAPHY - BILATERAL SCREENING REASON FOR EXAM: Female, 72 years old. Routine annual screening examination. PERTINENT HISTORY: Non-contributory. Remote right stereotactic and excisional breast biopsy. TECHNIQUE: Digital bilateral breast gia (3D mammographic acquisition) in the CC and MLO projections. 2-D mediolateral oblique (MLO) and craniocaudad (CC) views of both breasts were obtained. CAD: Full Field Digital Mammography with Computer Added Detection was performed. COMPARISON: Comparison is made with prior study dated April 01, 2017 and March 25, 2016. FINDINGS: Breast Composition: The breasts are almost entirely fatty. There are no dominant masses or suspicious calcifications. No other significant abnormalities are identified. There has been no significant change since the prior study. BI/SCREENING MAMM (CAD), BILAT IMPRESSION: Stable bilateral screening mammogram. Yearly follow-up mammogram recommended. (A) ASSESSMENT CATEGORY: BIRADS Category 1: Negative. A letter regarding these results will be sent to the patient by the facility within 30 days. Approximately 10% of breast cancers are not detected by mammography. A normal mammogram should not delay biopsy of a clinically suspicious abnormality. [id number] Electronically Signed: Wilfredo Bolivar MD at 13:40 EST , Service support ,
== END ==
PROVIDERS: Family Provider Family Medicine; PCP Family Medicine; Referring Provider Family Medicine; Visit Provider Family Medicine
DX: Z12.31 Encounter for screening mammogram for malignant neoplasm of breast (principal)
CPT/HCPCS: 77063; 77067

== ENCOUNTER → 2018-07-03 16:40 | Outpatient (CLI) | payer MEDICARE, MEDICAID, SELFPAY | PROVIDERS: Family Provider Family Medicine; PCP Family Medicine; Referring Provider Nurse Practitioner Adult Health; Visit Provider Nurse Practitioner Adult Health | DX: R30.0 Dysuria (principal) | CPT/HCPCS: 87077; 87086; 87088; 87186 ==

== ENCOUNTER → 2018-07-20 14:16 | Outpatient (CLI) | payer MEDICARE, MEDICAID, SELFPAY | PROVIDERS: Family Provider Family Medicine; PCP Family Medicine; Referring Provider Family Medicine; Visit Provider Family Medicine | DX: N39.0 Urinary tract infection, site not specified (principal) | CPT/HCPCS: 87077; 87086; 87088; 87186 ==

== ENCOUNTER → 2018-08-31 | Outpatient (CLI) | payer MEDICARE, MEDICAID, SELFPAY ==
[2018-08-31 17:34] LABS: Absolute Lymphocyte Count 2.75 X10^3/ul (0.83-4.51); Absolute Neutrophil Count 4.7 X10^3/uL (2.0-7.7); Basophil# 0.02 X10^3/uL; Basophil% 0.2 % (0-1); Eosinophil# 0.12 X10^3/uL; Eosinophils% 1.4 % (0-5); Hemoglobin 11.9 g/dl (12.0-15.0); Lymphocyte # 2.75 X10^3/ul (4.0); Mean Corp Hgb Conc 31.3 g/gl (32-36); Mean Corpuscular Hgb 28.1 pg (27.0-32.0); Mean Corpuscular Volume 89.8 fL (81-99); Mean Platelet Vol. 9.2 fl (6.2-12.0); Monocyte# 0.78 X10^3/uL; Monocyte% 9.4 % (0-10); Neutrophil # 4.66 X10^3/uL (2.7-7.7); Neutrophil % 55.9 % (47-70); Platelet Count 401 K/mm3 (150-450); RBC Distribution Width CV 14.4 % (11.6-14.6); RBC Distribution Width SD 46.3 fl (35.1-43.9); Red Blood Count 4.23 M/mm3 (4.2-5.4); White Blood Count 8.3 K/mm3 (4.4-11.0)
[2018-08-31 17:39] LABS: POSITIVE COUNT NO; POSITIVE DIFFERENTIAL NO; POSITIVE MORPHOLOGY NO
[2018-08-31 17:52] LABS: ALB/GLOB Ratio 1.1 RATIO (0.9-2.4); AST(SGOT) 16 U/L (15-37); Alanine Aminotransfer ALT/SGPT 24 U/L (13-56); Albumin, Serum 3.8 g/dL (3.2-5.0); Alkaline Phosphatase 109 U/L (45-117); Anion Gap 7 (5-15); BUN 21 mg/dL (7-18); BUN/Creat Ratio 25.4 RATIO (10-20); Calcium,Total 8.9 mg/dL (8.5-10.1); Chloride 104 mmol/L (98-107); Cholesterol 174 mg/dL (200); Creatinine, Serum 0.83 mg/dL (0.55-1.02); EST Glomerular Filtration Rate 72 mL/min (>60); Est Glom Filt Rate - Afr Amer 87 mL/min (>60); Globulin 3.6 g/dL (2.2-4.2); Glucose 168 mg/dL (74-106); High Density Lipoprotein 59 mg/dL; Magnesium 1.8 mg/dL (1.6-2.6); Potassium 3.6 mmol/L (3.5-5.1); Protein, Total 7.4 g/dL (6.4-8.2); Sodium Level 139 mmol/L (136-145); T4 Free Direct 0.97 ng/dL (0.76-1.46); Thyroid Stim Hormone (TSH) 1.56 uIU/mL (0.358-3.74); Triglycerides 181 mg/dL; Very Low Density Lipoprotein 36 mg/dL (5-40)
[2018-08-31 17:59] LABS: Vitamin D,25 Hydroxy 25.2 ng/mL (29.95-100.01)
[2018-08-31 18:00] LABS: Hemoglobin A1c 6.9 % (4.2-6.3)
[2018-09-05 17:46] LABS: Anti-Thyroglobulin AB < 1.0 IU/mL (0.0-0.9); Thyroglobulin, Serum Qt. 3.6 ng/mL (1.5-38.5); Thyroid Peroxidase AB 164 IU/mL (0-34)
== END | disposition home or self-care (01) ==
LOC: MFPLAB 15:48
PROVIDERS: Family Provider Family Medicine; PCP Family Medicine; Referring Provider Family Medicine; Visit Provider Family Medicine
DX: I10 Essential (primary) hypertension (principal); E11.9 Type 2 diabetes mellitus without complications; E03.9 Hypothyroidism, unspecified; E78.5 Hyperlipidemia, unspecified; E55.9 Vitamin D deficiency, unspecified
CPT/HCPCS: 80053; 80061; 82306; 83036; 83735; 84432; 84439; 84443; 85025; 86376; 86800

== ENCOUNTER → 2018-12-06 | Outpatient (CLI) | payer MEDICARE, MEDICAID, SELFPAY | END | disposition home or self-care (01) | LOC: LABSPEC 13:43 | PROVIDERS: Family Provider Family Medicine; PCP Family Medicine; Referring Provider Family Medicine; Visit Provider Family Medicine | DX: N39.0 Urinary tract infection, site not specified (principal) | CPT/HCPCS: 87077; 87086; 87088; 87186 ==

== ENCOUNTER → 2018-12-29 | Outpatient (CLI) | payer MEDICARE, MEDICAID, SELFPAY ==
[2018-12-29 10:37] LABS: Absolute Lymphocyte Count 2.25 X10^3/uL (0.83-4.51); Absolute Neutrophil Count 3.8 X10^3/uL (2.0-7.7); Basophil# 0.03 X10^3/uL; Basophil% 0.4 % (0-1); Eosinophil# 0.17 X10^3/uL; Eosinophils% 2.5 % (0-5); Hemoglobin 11.6 g/dL (12.0-15.0); Lymphocyte # 2.25 X10^3/ul (4.0); Lymphocyte % 32.5 % (19-41); Mean Corp Hgb Conc 30.5 g/dL (32-36); Mean Corpuscular Hgb 27.9 pg (27.0-32.0); Mean Corpuscular Volume 91.3 fL (81-99); Mean Platelet Vol. 9.4 fl (6.2-12.0); Monocyte# 0.65 X10^3/uL; Monocyte% 9.4 % (0-10); NRBC Flagged by Analyzer 0 % (0-5); Neutrophil # 3.81 X10^3/uL (2.7-7.7); Neutrophil % 54.9 % (47-70); Platelet Count 325 K/mm3 (150-450); RBC Distribution Width CV 14.4 % (11.6-14.6); RBC Distribution Width SD 47.8 fl (35.1-43.9); Red Blood Count 4.16 M/mm3 (4.2-5.4); White Blood Count 6.9 K/mm3 (4.4-11.0)
[2018-12-29 10:55] LABS: Hemoglobin A1c 6.4 % (4.2-6.3); Microalbumin,Random Urine 19.5 mg/L (NO RANGE EST.); Microalbumin:Creatinine Ratio 33.4 mg/g CRE (<30 mg/g CRE)
[2018-12-29 11:09] LABS: Vitamin D,25 Hydroxy 49.6 ng/mL (29.95-100.01)
[2018-12-29 11:11] LABS: AST(SGOT) 15 U/L (15-37); Alanine Aminotransfer ALT/SGPT 22 U/L (13-56); Albumin, Serum 3.7 g/dL (3.2-5.0); Alkaline Phosphatase 82 U/L (45-117); Anion Gap 7 (5-15); BUN 16 mg/dL (7-18); BUN/Creat Ratio 17.7 RATIO (10-20); Calcium,Total 8.8 mg/dL (8.5-10.1); Chloride 106 mmol/L (98-107); Cholesterol 146 mg/dL (200); EST Glomerular Filtration Rate 65 mL/min (>60); Est Glom Filt Rate - Afr Amer 79 mL/min (>60); Globulin 3.8 g/dL (2.2-4.2); Glucose 107 mg/dL (74-106); High Density Lipoprotein 53 mg/dL; Potassium 4.4 mmol/L (3.5-5.1); Protein, Total 7.5 g/dL (6.4-8.2); Sodium Level 143 mmol/L (136-145); Thyroid Stim Hormone (TSH) 3.35 uIU/mL (0.358-3.74); Triglycerides 163 mg/dL; Very Low Density Lipoprotein 33 mg/dL (5-40)
[2018-12-29 16:38] LABS: Vitamin B12 348 pg/mL (211-911)
[2018-12-29 17:08] LABS: Ferritin 22 ng/mL (8-252); Iron 44 ug/dL (50-170); Iron Binding Capacity,Total 400 ug/dL (250-450)
== END | disposition home or self-care (01) ==
LOC: MFPLAB 08:56
PROVIDERS: Family Provider Family Medicine; PCP Family Medicine; Referring Provider Family Medicine; Visit Provider Family Medicine
DX: I10 Essential (primary) hypertension (principal); E11.9 Type 2 diabetes mellitus without complications; E78.5 Hyperlipidemia, unspecified; E55.9 Vitamin D deficiency, unspecified; E03.8 Other specified hypothyroidism; D64.9 Anemia, unspecified
CPT/HCPCS: 36415; 80053; 80061; 82043; 82306; 82570; 82607; 82728; 82746; 83036; 83540; 83550; 84443; 85025

== ENCOUNTER → 2019-02-22 11:08 | Outpatient (CLI) | payer MEDICARE, MEDICAID, SELFPAY | PROVIDERS: Family Provider Family Medicine; PCP Family Medicine; Referring Provider Family Medicine; Visit Provider Family Medicine | DX: N39.0 Urinary tract infection, site not specified (principal) | CPT/HCPCS: 87077; 87086; 87088; 87186 ==

== ENCOUNTER → 2019-03-27 08:04 | Outpatient (CLI) | payer MEDICARE, MEDICAID, SELFPAY ==
[2019-03-27 10:05] LABS: Absolute Lymphocyte Count 2.53 X10^3/uL (0.83-4.51); Absolute Neutrophil Count 4.1 X10^3/uL (2.0-7.7); Basophil# 0.03 X10^3/uL; Basophil% 0.4 % (0-1); Eosinophils% 1.4 % (0-5); Hematocrit 39.6 % (37-47); Hemoglobin 12.2 g/dL (12.0-15.0); Lymphocyte # 2.53 X10^3/ul (4.0); Lymphocyte % 34.4 % (19-41); Mean Corp Hgb Conc 30.8 g/dL (32-36); Mean Corpuscular Hgb 27.9 pg (27.0-32.0); Mean Corpuscular Volume 90.4 fL (81-99); Mean Platelet Vol. 9.2 fl (6.2-12.0); Monocyte# 0.57 X10^3/uL; Monocyte% 7.7 % (0-10); NRBC Flagged by Analyzer 0 % (0-5); Neutrophil # 4.12 X10^3/uL (2.7-7.7); Platelet Count 349 K/mm3 (150-450); Red Blood Count 4.38 M/mm3 (4.2-5.4); White Blood Count 7.4 K/mm3 (4.4-11.0)
[2019-03-27 10:27] LABS: Hemoglobin A1c 6.6 % (4.2-6.3)
[2019-03-27 10:36] LABS: ALB/GLOB Ratio 0.9 RATIO (0.9-2.4); AST(SGOT) 19 U/L (15-37); Alanine Aminotransfer ALT/SGPT 23 U/L (13-56); Albumin, Serum 3.7 g/dL (3.2-5.0); Alkaline Phosphatase 74 U/L (45-117); Anion Gap 7 (5-15); BUN 17 mg/dL (7-18); Chloride 101 mmol/L (98-107); Cholesterol 175 mg/dL (200); Creatinine, Serum 0.95 mg/dL (0.55-1.02); EST Glomerular Filtration Rate 62 mL/min (>60); Est Glom Filt Rate - Afr Amer 75 mL/min (>60); Globulin 3.9 g/dL (2.2-4.2); Glucose 116 mg/dL (74-106); High Density Lipoprotein 57 mg/dL; Potassium 4.6 mmol/L (3.5-5.1); Protein, Total 7.6 g/dL (6.4-8.2); Sodium Level 137 mmol/L (136-145); Triglycerides 173 mg/dL; Very Low Density Lipoprotein 35 mg/dL (5-40)
== END ==
PROVIDERS: Family Provider Family Medicine; PCP Family Medicine; Referring Provider Family Medicine; Visit Provider Family Medicine
DX: E11.9 Type 2 diabetes mellitus without complications (principal); I10 Essential (primary) hypertension; E78.5 Hyperlipidemia, unspecified; E03.8 Other specified hypothyroidism
CPT/HCPCS: 36415; 80053; 80061; 83036; 84443; 85025

== ENCOUNTER → 2019-06-07 12:38 | Outpatient (CLI) | payer MEDICARE, MEDICAID, SELFPAY ==
--- NOTE | 2019-06-07 12:45 | BI_ITS ---
MAMMOGRAPHY - BILATERAL SCREENING REASON FOR EXAM: Female, 73 years old. Routine annual screening examination. PERTINENT HISTORY: Non-contributory. Remote right stereotactic breast biopsy. TECHNIQUE: Digital bilateral breast tristian (3D mammographic acquisition) in the CC and MLO projections. 2-D mediolateral oblique (MLO) and craniocaudad (CC) views of both breasts were obtained. CAD: Full Field Digital Mammography with Computer Added Detection was performed. COMPARISON: Comparison is made with prior study dated June 02, 2018 and April 01, 2017. FINDINGS: Breast Composition: The breasts are almost entirely fatty. There are no dominant masses or suspicious calcifications. No other significant abnormalities are identified. There has been no significant change since the prior study. BI/SCREEN MAMM (CAD) W/TRISTIAN BILAT IMPRESSION: Stable bilateral screening mammogram. Yearly follow-up mammogram recommended. (A) ASSESSMENT CATEGORY: BIRADS Category 1: Negative. A letter regarding these results will be sent to the patient by the facility within 30 days. Approximately 10% of breast cancers are not detected by mammography. A normal mammogram should not delay biopsy of a clinically suspicious abnormality. [id number] Electronically Signed: Wilfredo Bolivar, at 15:03 EST , Service support ,
--- NOTE | 2019-06-07 13:02 | BD_ITS ---
STUDY: DUAL ENERGY X-RAY ABSORPTIOMETRY / DXA REASON FOR EXAM: Female, 73 years old. COMPUTER BOOKKEEPER -EARLY AT 36 YRS OLD -- HX OF HRT -- TYPE 2 DIABETIC- TAKES METFORMIN -- TAKES THYROID MEDICATION -- TAKES 800MG CALCIUM + MULTIVITAMIN -- DOES LITTLE EXERCISE -- FAMILY HX OF OSTEO- MOTHER SEVERE -- HX OF RIGHT WRIST FX -- PETER OF 0.5 INCHES TECHNIQUE: Bone Mineral Density (BMD) measurements of lumbar spine and bilateral hips were obtained. COMPARISON: Comparison is made with prior study dated March 25, 2016 FINDINGS: Lumbar Spine (L1-L4): g/cm2 (1.429) / T-score (1.9) / Z-score (3.6) Findings are suggestive of normal bone density with a low fracture risk. Left Femur Total: g/cm2 (1.101) / T-score (0.7) / Z-score (2.3) Left Femoral Neck: g/cm2 (0.973) / T-score (-0.5) / Z-score (1.3) Right Femur Total: g/cm2 (1.057) / T-score (0.4) / Z-score (2.0) Right Femoral Neck: g/cm2 (0.922) / T-score (-0.8) / Z-score (1.0) The T-Scores on the most recent prior examination were: Lumbar Spine (L1-L4): There has been improvement of bone density since the previous examination. Left Femur Total: which represents a worsening of 1.1%. Right Femur Total: which represents an improvement of 0.2%. BD/Dexa Bone Density Study IMPRESSION: The patient is considered normal as outlined below according to World J Luis Organization (WHO) criteria with a low fracture risk. There has been improvement of bone density since the previous examination. Reference Information: The T-score is the number of standard deviations above or below the standard which is normal for young adults at their peak bone mineral density. The World Health Organization (WHO) interprets the T-scores as follows: Above -1 Normal bone density Between -1 and -2.5 Osteopenia Equal to / or below -2.5 Osteoporosis As a practical clinical guideline, osteopenia may be graded as follows: Mild -1 through -1.5 Moderate -1.6 through -2.0 Severe -2.1 through -2.4 The Z-score is the number of standard deviations above or below age-matched controls. A Z-score of less than -1.5 would be considered abnormal. References: 1. NIH Osteoporosis and Related Bone Diseases http://www.osteo.org 2. International Society for Clinical Densitometry http://www.iscd.org 3. National Osteoporosis Foundation http://www.nof.org Electronically Signed: Wilfredo Bolivar, at 15:13 EST , Service support ,
== END ==
PROVIDERS: Family Provider Family Medicine; PCP Family Medicine; Referring Provider Family Medicine; Visit Provider Family Medicine
DX: N95.9 Unspecified menopausal and perimenopausal disorder (principal); Z12.31 Encounter for screening mammogram for malignant neoplasm of breast
CPT/HCPCS: 77063; 77067; 77080

== ENCOUNTER → 2019-06-26 08:20 | Outpatient (CLI) | payer MEDICARE, MEDICAID, SELFPAY ==
[2019-06-26 10:04] LABS: Absolute Lymphocyte Count 1.93 X10^3/uL (0.83-4.51); Absolute Neutrophil Count 6.4 X10^3/uL (2.0-7.7); Basophil# 0.03 X10^3/uL; Basophil% 0.3 % (0-1); Eosinophil# 0.21 X10^3/uL; Eosinophils% 2.3 % (0-5); Hematocrit 37.8 % (37-47); Hemoglobin 11.8 g/dL (12.0-15.0); Lymphocyte # 1.93 X10^3/ul (4.0); Lymphocyte % 20.8 % (19-41); Mean Corp Hgb Conc 31.2 g/dL (32-36); Mean Corpuscular Volume 89.6 fL (81-99); Mean Platelet Vol. 9.2 fl (6.2-12.0); Monocyte# 0.72 X10^3/uL; Monocyte% 7.7 % (0-10); NRBC Flagged by Analyzer 0 % (0-5); Neutrophil # 6.37 X10^3/uL (2.7-7.7); Neutrophil % 68.5 % (47-70); Platelet Count 306 K/mm3 (150-450); RBC Distribution Width CV 14.3 % (11.6-14.6); RBC Distribution Width SD 46.1 fl (35.1-43.9); Red Blood Count 4.22 M/mm3 (4.2-5.4); White Blood Count 9.3 K/mm3 (4.4-11.0)
[2019-06-26 10:18] LABS: Hemoglobin A1c 6.4 % (4.2-6.3)
[2019-06-26 10:20] LABS: ALB/GLOB Ratio 0.9 RATIO (0.9-2.4); AST(SGOT) 15 U/L (15-37); Alanine Aminotransfer ALT/SGPT 22 U/L (13-56); Albumin, Serum 3.5 g/dL (3.2-5.0); Alkaline Phosphatase 76 U/L (45-117); Anion Gap 5 (5-15); BUN 15 mg/dL (7-18); BUN/Creat Ratio 18.1 RATIO (10-20); Calcium,Total 9.2 mg/dL (8.5-10.1); Chloride 106 mmol/L (98-107); Cholesterol 156 mg/dL (200); Creatinine, Serum 0.83 mg/dL (0.55-1.02); EST Glomerular Filtration Rate 72 mL/min (>60); Est Glom Filt Rate - Afr Amer 87 mL/min (>60); Ferritin 24 ng/mL (8-252); Globulin 3.8 g/dL (2.2-4.2); Glucose 122 mg/dL (74-106); High Density Lipoprotein 58 mg/dL; Iron 46 ug/dL (50-170); Iron Binding Capacity,Total 353 ug/dL (250-450); Potassium 4.1 mmol/L (3.5-5.1); Protein, Total 7.3 g/dL (6.4-8.2); Sodium Level 140 mmol/L (136-145); Thyroid Stim Hormone (TSH) 1.12 uIU/mL (0.358-3.74); Triglycerides 145 mg/dL; Very Low Density Lipoprotein 29 mg/dL (5-40)
[2019-06-26 10:29] LABS: Vitamin D,25 Hydroxy 50.7 ng/mL (29.95-100.01)
== END ==
PROVIDERS: PCP Family Medicine; Visit Provider Family Medicine
DX: E11.9 Type 2 diabetes mellitus without complications (principal); E61.1 Iron deficiency; E78.5 Hyperlipidemia, unspecified; I10 Essential (primary) hypertension; E03.8 Other specified hypothyroidism; E55.9 Vitamin D deficiency, unspecified
CPT/HCPCS: 36415; 80053; 80061; 82306; 82728; 83036; 83540; 83550; 84443; 85025

== ENCOUNTER 2019-07-15 19:44 | Observation (INO) | payer MEDICARE, MEDICAID, SELFPAY ==
[2019-07-15 19:45] VITALS: BP 169/75; PULSE 73; RESP 16; TEMP 36.6; O2SAT 100; BMI 34.7
--- NOTE | 2019-07-15 19:51 | ED.RN ---
RN CALLED FOR EKG, PULLED OLD EKGS FOR
--- NOTE | 2019-07-15 20:06 | RAD_ITS ---
STUDY: X-RAY CHEST REASON FOR EXAM: Female, 73 years old. L UPPER ARM PAIN SINCE TUESDAY, THAT NOW HAS RADIATES TO HER JAW. PT STATES SHE HAS BEEN UNDER A LOT OF STRESS TECHNIQUE: PA and lateral COMPARISON: June 26, 2019 FINDINGS: Minimal scarring in the left lower lobe and lingula... There is no demonstrated pleural abnormality. Normal size heart. Normal mediastinum and andrew. Normal visualized pulmonary arteries. Tortuous mildly calcified aortic arch and descending thoracic aorta. Dorsal spine demonstrates mild degenerative change.. Normal visualized ribs, clavicles, and shoulders. There is no demonstrated abnormality of the visualized soft tissue structures of the upper abdomen. No significant changes since prior exam RAD/Chest PA and Lateral IMPRESSION: No acute cardiac pulmonary pathology Electronically Signed: Josue Kunz MD at 20:59 EDT , Service support ,
--- NOTE | 2019-07-15 20:06 | EKG12_ITS ---
Test Reason : CP Blood Pressure : / mmHG Vent. Rate : 071 BPM Atrial Rate : 071 BPM P-R Int : 164 ms QRS Dur : 078 ms QT Int : 408 ms P-R-T Axes : 054 078 038 degrees QTc Int : 443 ms Sinus rhythm with sinus arrhythmia with occasional Premature ventricular complexes Nonspecific ST abnormality Abnormal ECG Confirmed by PIYUSH ENCINAS, MARIALUISA ([id number]), writer editor ROMA HENRY ([id number]) on 07/16/2019 3:24:48 PM Referred By: MR Confirmed By:MARIALUISA PICKETT MD
[2019-07-15 20:19] VITALS: O2SAT 98
[2019-07-15 20:19] LABS: Absolute Lymphocyte Count 3.57 X10^3/uL (0.83-4.51); Absolute Neutrophil Count 5.4 X10^3/uL (2.0-7.7); Basophil# 0.04 X10^3/uL; Basophil% 0.4 % (0-1); Eosinophil# 0.21 X10^3/uL; Eosinophils% 2.1 % (0-5); Hematocrit 39.5 % (37-47); Hemoglobin 12.4 g/dL (12.0-15.0); Lymphocyte # 3.57 X10^3/ul (4.0); Lymphocyte % 35.2 % (19-41); Mean Corp Hgb Conc 31.4 g/dL (32-36); Mean Corpuscular Hgb 28.1 pg (27.0-32.0); Mean Corpuscular Volume 89.6 fL (81-99); Mean Platelet Vol. 9.4 fl (6.2-12.0); Monocyte# 0.89 X10^3/uL; Monocyte% 8.8 % (0-10); NRBC Flagged by Analyzer 0 % (0-5); Neutrophil # 5.42 X10^3/uL (2.7-7.7); Neutrophil % 53.3 % (47-70); Platelet Count 342 K/mm3 (150-450); RBC Distribution Width CV 14.4 % (11.6-14.6); RBC Distribution Width SD 46.6 fl (35.1-43.9); Red Blood Count 4.41 M/mm3 (4.2-5.4); White Blood Count 10.2 K/mm3 (4.4-11.0)
[2019-07-15] MEDS: Aspirin 81 MG TAB.CHEW 324 MG PO (20:19)
[2019-07-15 21:20] LABS: Anion Gap 5 (5-15); BUN 15 mg/dL (7-18); BUN/Creat Ratio 18.5 RATIO (10-20); Chloride 109 mmol/L (98-107); Creatinine, Serum 0.81 mg/dL (0.55-1.02); EST Glomerular Filtration Rate 74 mL/min (>60); Est Glom Filt Rate - Afr Amer 89 mL/min (>60); Estimated Creatinine Clearance 49.65 ml/min; Glucose 126 mg/dL (74-106); Potassium 3.8 mmol/L (3.5-5.1); Sodium Level 143 mmol/L (136-145)
--- NOTE | 2019-07-15 22:11 | PCM.HP.STD ---
Problem List (1) Anginal equivalent Status: Acute (2) Wrist fracture Status: Chronic (3) Benign hypertension Status: Chronic History of Present Illness Date of Admission: 07/15/19 Chief Complaint: left shoulder pain The patient is a 73 year old F with a significant for diabetes mellitus; hypertension; hyperlipidemia; myesthesia gravis who went to emergency department with a 3-day history of intermittent left shoulder pain. She describes her pain as burning. Her pain is episodic lasting about 1 minute. Her pain occurs at rest. On the day of presentation her pain increased in frequency and duration. Also on day of presentation the pain radiated to her left neck. Initially the pain was at her upper left shoulder but with on the day of presentation the pain moved a bit distally on the same left shoulder. She denies any nausea, vomiting, diaphoresis or shortness of breath with the pain. She described the severity of the pain as 1 out of 10. EKG at the emergency department did not show any ST or T wave abnormality. Troponin was negative. Past Medical History Past Medical History (Chronic Problems): Chronic Problems Wrist fracture (Chronic) Benign hypertension (Chronic) Allergies Penicillins Allergy (Verified 07/15/19 19:47) Unknown acetaminophen [From Vicodin] Adverse Reaction (Verified 07/15/19 19:47) Vomiting codeine Adverse Reaction (Verified 07/15/19 19:47) Vomiting hydrocodone bitartrate [From Vicodin] Adverse Reaction (Verified 07/15/19 19:47) Vomiting meperidine HCl [From Demerol] Adverse Reaction (Verified 07/15/19 19:47) Vomiting morphine Adverse Reaction (Verified 07/15/19 19:47) Vomiting sodium penathol Allergy (Uncoded 07/15/19 19:47) Other Home Medications: Ambulatory Orders Medication Instructions Recorded Cholecalciferol (VIT D3) [Vitamin 2,000 unit PO DAILY 06/26/15 D] Garlic 1,000 mg PO DAILY 06/26/15 Levothyroxine [Synthroid] 75 mcg PO DAILY 06/26/15 Metoprolol Tartrate [Lopressor 25 mg PO BID 06/26/15 (Beta Dylan)] Multivitamins,Ther W-Minerals 1 tablet PO DAILY 06/26/15 [Multivitamin With Minerals (BKC)] Mycophenolate Mofetil [Cellcept] 500 mg PO BID 02/18/16 Simvastatin [Zocor] 40 mg PO QHS 06/26/15 Fluticasone 0.05% [Flonase Nasal 1 spray NASAL DAILY PRN 04/12/18 [place]] Metformin HCl [Metformin HCl ER] 500 mg PO DAILY 04/12/18 Acetaminophen [Tylenol Extra 500 mg PO Q4H PRN PRN #20 tablet 05/10/18 Strength] Ibuprofen 600 mg PO Q4H PRN PRN #20 tablet 05/10/18 Aspirin 325 mg PO DAILY 07/15/19 Biotin 1,000 mcg PO DAILY 07/15/19 Calcium 1,200 mg PO DAILY 07/15/19 L.acidoph,Paracasei, B.lactis 1 ea PO DAILY 07/15/19 [Probiotic] Vitamin C 3 tab PO DAILY 07/15/19 Surgical History: adenoidectomy, appendectomy, - - Cyst (fibrocystic disease) removed from right breast x2. Kidney stone removal. Lithotripsy Tubal ligation. Smoking Status: Never smoker Tobacco Use: Non-smoker, Cigarettes Alcohol: None - *Family History Maternal History Items: - - Her mother had osteoporosis and scoliosis. Further her mother had heart attack when she was in the late 70s to early 80s. Paternal History Items: Diabetes Review of Systems Constitutional: Denies: Chills, Fever, Weight Change HEENT: Denies: Head Aches, Sinus Congestion, Sinus Drainage Cardiovascular: Denies: Chest Pain, Palpitations Respiratory: Denies: Cough, Shortness of breath at rest, Sputum production Gastrointestinal: Denies: Abdominal Pain, Nausea, Vomiting Genitourinary: Denies: Dysuria Musculoskeletal: Reports: Neck Pain, Shoulder Pain. Denies: Joint Pain, Joint Tenderness Skin: Denies: Rash, Wounds Neurological: Denies: Numbness, Tingling, Focal weakness Psychiatric: Denies: Anxiety, Depression, Homicidal Ideations, Suicidal Ideations Hematologic/ Lymphatic: Denies: Easy Bruising, Easy Bleeding VTE Information - Inpt Only VTE Present on Admission: No VTE Mechan Device Prophylaxis: SCD's VTE Pharm Prophylaxis ordered?: No Patient Problems: Active and Suspected Problems Anginal equivalent (Acute) - Physical Exam Vitals/I&O's: Vital Signs Temp Pulse Resp BP Pulse Ox 97.9 F 73 16 169/75 H 98 07/15/19 19:45 07/15/19 19:45 07/15/19 19:45 07/15/19 19:45 07/15/19 20:19 Oxygen Delivery Method Room Air Weight: 86.2 kg Body Mass Index (BMI) 34.7 Finger Stick Blood Glucose 96 General: Alert, Oriented x3, Cooperative HEENT: Atraumatic, PERRLA, EOMI, Normocephalic Neck: Supple, No JVD, Negative Carotid Bruits, Trachea Midline Lungs: Clear to auscultation, Normal air movement Cardiovascular: Regular rate, Regular Rhythm, Normal S1, Normal S2 Abdomen: Bowel Sounds Present, Soft, Non Tender Extremities: No edema, Capillary Refill Less than 3 Seconds Skin: No rashes, No breakdown Musculoskeletal: No Tenderness to Palpation of Joints or Extremities Neurological: Cranial nerves II-XII grossly intact Psych/Mental Status: Normal Affect, Appropriate Laboratory Results 07/15/19 20:01: WBC 10.2, RBC 4.41, Hgb 12.4, Hct 39.5, MCV 89.6, MCH 28.1, MCHC 31.4 L, RDW Std Deviation 46.6 H, RDW Coeff of Tyler 14.4, Plt Count 342, MPV 9.4, Immature Gran % (Auto) 0.200, Neut % (Auto) 53.3, Lymph % (Auto) 35.2, [place] % (Auto) 8.8, Eos % (Auto) 2.1, Baso % (Auto) 0.4, Absolute Neuts (auto) 5.4, Absolute Lymphs (auto) 3.57, Nucleated RBC % 0 07/15/19 20:01: Sodium Cancelled, Potassium Cancelled, Chloride Cancelled, Carbon Dioxide Cancelled, Anion Gap Cancelled, BUN Cancelled, Creatinine Cancelled, Estim Creat Clear Calc Cancelled, Est GFR (MDRD) Af Amer Cancelled, Est GFR (MDRD) Non-Af Cancelled, BUN/Creatinine Ratio Cancelled, Glucose Cancelled, Calcium Cancelled, Troponin I Cancelled 07/15/19 20:45: Sodium 143, Potassium 3.8, Chloride 109 H, Carbon Dioxide 29.0, Anion Gap 5, BUN 15, Creatinine 0.81, Estim Creat Clear Calc 49.65, Est GFR (MDRD) Af Amer 89, Est GFR (MDRD) Non-Af 74, BUN/Creatinine Ratio 18.5, Glucose 126 H, Calcium 9.0, Troponin I < 0.015 Assessment/Plan All Active Problems Anginal equivalent (Acute) The patient is a 73 year old F with a significant for diabetes mellitus; hypertension; hyperlipidemia; myesthesia gravis went to emergency department with progressively worsening intermittent left shoulder pain which is now involving her left neck consistent with anginal equivalents. Anginal Equivalent Heart score: Four-points; moderate score (slightly suspicious; age more or equal to 65; >=3 risk factors or history of atherosclerotic disease). Place on a monitored bed at the PCU Impression of chest x-ray: No acute cardiopulmonary process. Chest x-ray was independently reviewed and I agree radiologist interpretation. EKG independently reviewed confirms no ST or T wave abnormality. Patient takes aspirin 162 mg twice daily reportedly for myasthenia gravis; continued. SL NTG 0.4 mg prn as needed for chest pain We will check lipid panel. Statin: Patient takes statin nightly; continued. Serial cardiac enzymes Stat EKG as needed for chest pain Patient want to try treadmill stress test. Treadmill stress test ordered. Continue metoprolol. Hold in a.m. for stress test. Hypertension On presentation blood pressure was not within goal. Metoprolol continued. Hold on the morning of stress test. Trend blood pressure and adjust blood pressure medications.. Hydralazine as needed ordered. Diabetes mellitus Patient with hyperglycemia on presentation. Metformin held in the setting of a cardiac work-up for chest pain. Accu-Cheks. Placed on correction scale insulin. Myasthenia gravis: Patient reported that her myasthenia gravis has affected her lungs and heart. Reportedly she takes aspirin 162 mg twice daily; continued. Mycophenolate mofetil continued. Hypothyroidism: Synthroid continued. Reportedly she take her Synthroid 5 times a day and skip Sundays and Wednesdays; continue same home regimen and frequency. Obesity: BMI of 34.8. Complicates care. Recommend lifestyle modification. DVT prophylaxis SCD ordered. NO chemical thromboprophylaxis in the setting of work-up for anginal equivalent. OBSV E&M: [id number] Initial observation care L2
[2019-07-15 22:12] VITALS: BP 143/68
[2019-07-15 22:16] VITALS: BP 143/68; PULSE 66; RESP 14; TEMP 36.6; O2SAT 100
--- NOTE | 2019-07-15 22:19 | ED.DCSUM_ITS ---
History of Present Illness Chief Complaint: Chest Pain Informant: Patient Narrative: Patient presenting for evaluation secondary to chest pain. Patient has an underlying history of diabetes hypertension hyperlipidemia, but she is a non- smoker and has no prior history of cardiovascular disease. Patient reports to me that over the course of the last 3 days or so she has been having issues with intermittent chest pain. She describes this as a burning type sensation that will occur in her left chest and is not necessarily exertional will last about 5 minutes and then spontaneously resolved. Patient reports that she has been getting increasing frequency of this over the course of the last 24 hours with radiation of the pain up into her neck and down her left arm. She denies any shortness of breath lightheadedness palpitations or diaphoresis associated with this. She denies any DVT or PE risk factors. Patient has not had recent provocative stress testing. Review of systems otherwise negative. Past Medical History - Allergies and Home Meds Allergies/Adverse Reactions: Allergies Penicillins Allergy (Verified 07/15/19 19:47) Unknown acetaminophen [From Vicodin] Adverse Reaction (Verified 07/15/19 19:47) Vomiting codeine Adverse Reaction (Verified 07/15/19 19:47) Vomiting hydrocodone bitartrate [From Vicodin] Adverse Reaction (Verified 07/15/19 19:47) Vomiting meperidine HCl [From Demerol] Adverse Reaction (Verified 07/15/19 19:47) Vomiting morphine Adverse Reaction (Verified 07/15/19 19:47) Vomiting sodium penathol Allergy (Uncoded 07/15/19 19:47) Other Primary Care Physician: Jerome Richard MD [Primary Care Provider] - Past Medical History: - - Diabetes, hypertension, hyperlipidemia Surgical History: adenoidectomy, appendectomy Smoking Status: Never smoker Review of Systems All systems negative except as indicated General: Denies: Chills, Fever, Sweats Eyes: Denies: Visual changes - bilaterally, Diplopia ENT: Denies: Rhinorrhea, Sore throat Cardiovascular: Reports: Chest pain Respiratory: Denies: Dyspnea, Cough, Dyspnea on exertion Gastrointestinal: Denies: Abdominal pain, Nausea, Vomiting, Diarrhea, Melena, Hematochezia Genitourinary: Denies: Dysuria, Hematuria, Frequency Musculoskeletal: Denies: Back pain, Extremity Pain Skin: Denies: Rash, Wounds Neurological: Denies: Headache, Weakness, Numbness Physical Exam Vital Signs/Narrative: Vital Signs Temp Pulse Resp BP Pulse Ox 07/15/19 22:12 143/68 H 07/15/19 20:19 98 07/15/19 19:45 97.9 F 73 16 169/75 H 100 Inital Vital Signs reviewed: Yes General: Well nourished, Well developed, Obese Head: Normocephalic, Atraumatic Eyes: Perrl, EOMI ENT: Moist mucous membranes, No rhinorrhea Neck: Supple, Nontender Cardiovascular: Regular rate, Regular rhythm, Murmur - 2/6 systolic Respiratory: No distress, CTA bilaterally, Chest nontender Abdomen: Soft, Nontender, Nondistended, Normal bowel sounds Back: Nontender, Normal Inspection Extremities: Nontender, No edema Skin: Normal color, No rash Neurological: Alert, Oriented x3, Cranial nerves II-XII grossly intact, Normal Strength, Normal Sensation Psychological: Normal affect, Normal Mood Diagnostic/Tx/Re-eval Chest X-Ray - ED: 2 View, Read by ED Physician, Read by Radiologist, No Acute Disease - EKG Initial EKG Interpretation: - - Sinus rhythm at 71 with occasional PVCs. Isoelectric ST segments normal T waves normal MI and QTc intervals no evidence of acute ischemia or arrhythmia. - Medical Decision Making Patient presented secondary to chest pain. CBC chemistry troponin found to be grossly unremarkable. PA and lateral chest x-ray by my personal review as well as radiology unremarkable. EKG shows PVCs but no ischemic changes. Patient's heart score is 5 she has not had recent present evocative testing. I believe that she requires admission. Patient will be admitted under the hospitalist. ED Disposition - Plan for ED Patient: Disposition: Acute Care Hospital [facility] Diagnosis: Chest pain Referrals: Jerome Richard MD [Primary Care Provider] -
--- NOTE | 2019-07-15 23:07 | EKG12_ITS ---
Test Reason : CP ADMIT Blood Pressure : / mmHG Vent. Rate : 061 BPM Atrial Rate : 061 BPM P-R Int : 166 ms QRS Dur : 080 ms QT Int : 426 ms P-R-T Axes : 051 066 047 degrees QTc Int : 428 ms Normal sinus rhythm Normal ECG Confirmed by BALA ENCINAS, AMARI ([id number]), mapping editor JUJU LOCKWOOD ([id number]) on 07/18/2019 10:00:52 AM Referred By: PATRICK Confirmed By:AMARI MCKENNA MD
[2019-07-15 23:12] VITALS: BMI 34.6
[2019-07-15 23:18] VITALS: BP 146/81; PULSE 70; RESP 18; TEMP 36.3; O2SAT 98
[2019-07-15 23:56] VITALS: PULSE 76
[2019-07-15 23:56] LABS: Bedside Glucose 128 mg/dL (70-110)
[2019-07-16] VITALS (8 sets, daily range): BP systolic 139–158; BP diastolic 58–76; PULSE 62–80; RESP 12–22; TEMP 36.4–36.6; O2SAT 96–99
--- NOTE | 2019-07-16 00:54 | CPS ---
V60 set-up with pt.; humidification being delivered with BiPAP
[2019-07-16 03:08] LABS: Cholesterol 148 mg/dL (200); High Density Lipoprotein 49 mg/dL; Triglycerides 286 mg/dL; Very Low Density Lipoprotein 57 mg/dL (5-40)
[2019-07-16] MEDS: Aspirin 81 MG TAB.CHEW 162 MG PO (05:48)
[2019-07-16] MEDS: Levothyroxine 75 MCG Tablet PO (05:48)
[2019-07-16 05:56] LABS: Bedside Glucose 118 mg/dL (70-110)
[2019-07-16] MEDS: Tolterodine Tartrate 2 MG CAP.SA PO (08:25)
--- NOTE | 2019-07-16 09:09 | PCA ---
pt off floor
[2019-07-16] MEDS: Multivitamins,Ther W-Minerals Tablet 1 TABLET PO (10:37)
[2019-07-16] MEDS: Calcium Carbonate 500 MG Tablet 1000 MG PO (10:37)
[2019-07-16] MEDS: Mycophenolate Mofetil 250 MG Capsule 500 MG PO (10:37)
[2019-07-16 11:20] LABS: Bedside Glucose 206 mg/dL (70-110)
--- NOTE | 2019-07-16 13:35 | STRESSREP ---
Stress Test Report Exercise myocardial perfusion stress test. 73-year-old lady with a history of chest pain. Resting EKG demonstrates normal sinus rhythm with a rate of 76 bpm normal intervals are noted resting blood pressure is 140/74 mmHg. The patient exercised according to the regular Edgardo protocol for a total duration of 6 minutes and 30 seconds. The maximum heart rate attained was 150 bpm which was 101% of maximum predicted heart rate the maximum workload was 7.7 metabolic equivalents. At rest there were no ST or T wave changes noted suggest ischemia. During stress occasional premature atrial complexes were noted. At peak exercise upsloping ST changes only were noted. No clinical angina was noted the test was terminated due to target heart rate being achieved as well as dyspnea. Myocardial perfusion protocol. 12.0 mCi of technetium 99m sestamibi was injected at rest. The patient exercised according to regular Edgardo protocol for 7.7 metabolic equivalents. At peak exercise 33.3 mCi of technetium 99m sestamibi was injected stress images were obtained stress and rest images were reconstructed in comparing the short axis vertical and horizontal long axis. Gated images were also obtained Perfusion SPECT analysis: Review of the stress images demonstrate normal uptake of tracer noted in all areas of the myocardium the resting images similar demonstrate normal uptake of tracer noted in all areas of the myocardium. No reversibility is noted suggest ischemia no previous infarct is noted. Gated SPECT analysis: The gated ejection fraction is noted to be 82%. Conclusion: Normal exercise myocardial perfusion stress test at a moderate workload. Preserved ejection fraction. No ischemia noted.
--- NOTE | 2019-07-16 14:34 | PCM.DC ---
- Discharge Diagnoses Current Active Problems: Current Active and Chronic Problems Anginal equivalent (Acute) You will use the following diet at home:: No restrictions Discharge Activity: Return to Normal Activity Allergies/Adverse Reactions: Allergies Penicillins Allergy (Verified 07/15/19 23:14) Unknown acetaminophen [From Vicodin] Adverse Reaction (Verified 07/15/19 23:14) Vomiting codeine Adverse Reaction (Verified 07/15/19 23:14) Vomiting hydrocodone bitartrate [From Vicodin] Adverse Reaction (Verified 07/15/19 23:14) Vomiting meperidine HCl [From Demerol] Adverse Reaction (Verified 07/15/19 23:14) Vomiting morphine Adverse Reaction (Verified 07/15/19 23:14) Vomiting sodium penathol Allergy (Uncoded 07/15/19 23:14) Other Medications to take at Discharge Cholecalciferol (VIT D3) [Vitamin D3] 2,000 unit PO DAILY 06/26/15 Garlic 1,000 mg PO DAILY 06/26/15 Levothyroxine [Synthroid] 75 mcg PO DAILY 06/26/15 Metoprolol Tartrate [Lopressor (beta susannah)] 25 mg PO BID 06/26/15 Multivitamins,Ther W-Minerals [Multivitamin With Minerals (BKC)] 1 tablet PO DAILY 06/26/15 Mycophenolate Mofetil [Cellcept] 500 mg PO BID 06/26/15 Simvastatin [Zocor] 40 mg PO QHS 06/26/15 Fluticasone 0.05% [Flonase Nasal [place]] 1 spray NASAL DAILY PRN 04/12/18 Metformin HCl [Metformin HCl ER] 500 mg PO DAILY 04/12/18 Acetaminophen [Tylenol] 500 mg PO Q4H PRN PRN #20 tablet 05/10/18 Ibuprofen 600 mg PO Q4H PRN PRN #20 tablet 05/10/18 Aspirin 325 mg PO DAILY 07/15/19 Biotin 1,000 mcg PO DAILY 07/15/19 Calcium 1,200 mg PO DAILY 07/15/19 L.acidoph,Paracasei, B.lactis [Probiotic] 1 ea PO DAILY 07/15/19 Vitamin C 3 tab PO DAILY 07/15/19 Fesoterodine Fumarate [Toviaz] 4 mg PO 07/16/19 Primary Care Physician: Jerome Richard MD [Primary Care Provider] - Please follow up with your Primary Care Physician in: in 5-7 days Test Results: Test results from this visit will be discussed in further detail at your follow-up appointment, if applicable. Please Follow Up With: Jerome Richard MD Proposed Discharge Date: 07/16/19
--- NOTE | 2019-07-16 14:36 | DS.PCM_ITS ---
Discharge Date and Diagnosis - Problem List Patient Problems: Active and Suspected Problems Anginal equivalent (Acute) Date of Admission: 07/15/19 Date of Discharge: 07/16/19 - Primary Discharge Diagnosis Active and Suspected Problems Anginal equivalent (Acute) - Secondary Discharge Diagnosis Chronic Problems Wrist fracture (Chronic) Benign hypertension (Chronic) Hospital Course and Treatment Imaging Results: 07/16/19 05:55 Nuclear Stress Test - Treadmil [NM] AM (NON MEDS) Summary of Care Provided: The patient is a 73 year old F significant past medical history including diabetes mellitus; hypertension; hyperlipidemia; myesthesia gravis presented with left shoulder and neck paresthesias.. Patient was placed on a monitored bed [place] was ruled out with serial cardiac enzymes. Subsequently underwent a nuclear stress test which was negative for stress-induced ischemia patient was discharged home instructed to follow-up with PCP for subsequent care. Patient Problems: Active and Suspected Problems Anginal equivalent (Acute) - Physical Exam Vitals/I&O's: Vital Signs Temp Pulse Resp BP Pulse Ox 97.8 F 80 16 145/73 H 96 07/16/19 10:35 07/16/19 10:35 07/16/19 10:35 07/16/19 10:35 07/16/19 10:35 Oxygen Delivery Method Room Air Weight: 85.9 kg Body Mass Index (BMI) 34.6 Finger Stick Blood Glucose 96 Intake and Output for Last 24 Hours 07/14/19 07/15/19 07/16/19 22:59 23:59 23:59 Intake Total 600 / 600 Balance 600 / 600 General: Alert HEENT: Atraumatic Neck: Supple Cardiovascular: Regular rate, Regular Rhythm Psych/Mental Status: Normal Affect Laboratory Results 07/15/19 20:01: WBC 10.2, RBC 4.41, Hgb 12.4, Hct 39.5, MCV 89.6, MCH 28.1, MCHC 31.4 L, RDW Std Deviation 46.6 H, RDW Coeff of [place] 14.4, Plt Count 342, MPV 9.4, Immature Gran % (Auto) 0.200, Neut % (Auto) 53.3, Lymph % (Auto) 35.2, [place] % (Auto) 8.8, Eos % (Auto) 2.1, Baso % (Auto) 0.4, Absolute Neuts (auto) 5.4, Absolute Lymphs (auto) 3.57, Nucleated RBC % 0 07/15/19 20:01: Sodium Cancelled, Potassium Cancelled, Chloride Cancelled, Carbon Dioxide Cancelled, Anion Gap Cancelled, BUN Cancelled, Creatinine Cancelled, Estim Creat Clear Calc Cancelled, Est GFR (MDRD) Af Amer Cancelled, Est GFR (MDRD) Non-Af Cancelled, BUN/Creatinine Ratio Cancelled, Glucose Cancelled, Calcium Cancelled, Troponin I Cancelled 07/15/19 20:45: Sodium 143, Potassium 3.8, Chloride 109 H, Carbon Dioxide 29.0, Anion Gap 5, BUN 15, Creatinine 0.81, Estim Creat Clear Calc 49.65, Est GFR (MDRD) Af Amer 89, Est GFR (MDRD) Non-Af 74, BUN/Creatinine Ratio 18.5, Glucose 126 H, Calcium 9.0, Troponin I < 0.015 07/15/19 23:45: POC Glucose 128 H 07/15/19 23:50: Troponin I < 0.015 07/16/19 02:42: Troponin I < 0.015 07/16/19 02:42: Triglycerides 286 H, Cholesterol 148, LDL Cholesterol 42, VLDL Cholesterol 57 H, HDL Cholesterol 49 07/16/19 05:47: POC Glucose 118 H 07/16/19 11:13: POC Glucose 206 H Current Medications Acetaminophen (Tylenol) 500 mg PO Q4H PRN PRN PRN Reason: Pain Score 1-10/10 Aspirin (Aspirin, Baby) 162 mg PO BIDCM [facility] Last Admin: 07/16/19 05:48 Dose: 162 mg Documented by: Atorvastatin Calcium (Lipitor) 20 mg PO QHS [facility] Calcium Carbonate (Tums) 1,000 mg PO DAILY [facility] Last Admin: 07/16/19 10:37 Dose: 1,000 mg Documented by: Cholecalciferol (Vitamin D (25mcg)) 2,000 unit PO DAILY [facility] Last Admin: 07/16/19 10:37 Dose: 2,000 unit Documented by: Fluticasone Propionate (Flonase Nasal [place]) 1 spray NASAL DAILY PRN PRN Reason: NASAL CONGESTION Glucagon () 1 mg IM .X1 PRN PRN Reason: Hypoglycemia Hydralazine HCl (Apresoline Iv) 5 mg IV Q4H PRN PRN PRN Reason: sbp > 160 Dextrose (Dextrose 10%-Water) 250 mls @ 999 mls/hr IV .Q16M PRN; Protocol PRN Reason: HYPOGLYCEMIA Sodium Chloride () 250 mls @ 15 mls/hr IV .[id number] PRN PRN Reason: Saline Flush Sodium Chloride () 250 mls @ 15 mls/hr IV .[id number] PRN PRN Reason: Additional IVPB Infusion Insulin Human Lispro (Humalog Chuy (Bk)) 0 unit SC Q6 [facility]; Protocol Last Admin: 07/16/19 11:24 Dose: Not Given Documented by: Lactobacillus Acidophilus (Acidophilus) 1 tablet PO DAILY [facility] Last Admin: 07/16/19 10:37 Dose: 1 tablet Documented by: Levothyroxine Sodium (Synthroid) 75 mcg PO [id number] [facility] Last Admin: 07/16/19 05:48 Dose: 75 mcg Documented by: Melatonin (Melatonin) 3 mg PO QHS PRN PRN PRN Reason: INSOMNIA Metoprolol Tartrate (Lopressor (Beta Dylan)) 25 mg PO BID [facility] Multivitamins/Minerals (Multivitamin With Minerals (Bkc)) 1 tablet PO DAILYCM [facility] Last Admin: 07/16/19 10:37 Dose: 1 tablet Documented by: Mycophenolate Mofetil (Cellcept) 500 mg PO BID [facility] Last Admin: 07/16/19 10:37 Dose: 500 mg Documented by: Nitroglycerin (Nitrostat) 0.4 mg SUBLINGUAL Q5M PRN PRN Reason: CARDIAC/CHEST PAIN Ondansetron HCl (Zofran) 4 mg IV Q8H PRN PRN PRN Reason: NAUSEA/VOMITING Sodium Chloride () 10 - 40 ml IV UD PRN PRN Reason: SALINE FLUSH Tolterodine Tartrate (Detrol La) 2 mg PO DAILY [facility] Last Admin: 07/16/19 08:25 Dose: 2 mg Documented by: Discharge Diet: No Restrictions Discharge Activity: Return to Normal Activity Home Medications: Medications to take at Discharge Cholecalciferol (VIT D3) [Vitamin D3] 2,000 unit PO DAILY 06/26/15 Garlic 1,000 mg PO DAILY 06/26/15 Levothyroxine [Synthroid] 75 mcg PO DAILY 06/26/15 Metoprolol Tartrate [Lopressor (beta dylan)] 25 mg PO BID 06/26/15 Multivitamins,Ther W-Minerals [Multivitamin With Minerals (BKC)] 1 tablet PO DAILY 06/26/15 Mycophenolate Mofetil [Cellcept] 500 mg PO BID 06/26/15 Simvastatin [Zocor] 40 mg PO QHS 06/26/15 Fluticasone 0.05% [Flonase Nasal [place]] 1 spray NASAL DAILY PRN 04/12/18 Metformin HCl [Metformin HCl ER] 500 mg PO DAILY 04/12/18 Acetaminophen [Tylenol] 500 mg PO Q4H PRN PRN #20 tablet 05/10/18 Ibuprofen 600 mg PO Q4H PRN PRN #20 tablet 05/10/18 Aspirin 325 mg PO DAILY 07/15/19 Biotin 1,000 mcg PO DAILY 07/15/19 Calcium 1,200 mg PO DAILY 07/15/19 L.acidoph,Paracasei, B.lactis [Probiotic] 1 ea PO DAILY 07/15/19 Vitamin C 3 tab PO DAILY 07/15/19 Fesoterodine Fumarate [Toviaz] 4 mg PO 07/16/19 Primary Care Physician: Jerome Richard MD [Primary Care Provider] - Please follow up with your Primary Care Physician in: in 5-7 days Please Follow Up With: Jerome Richard MD Disposition: Home Minutes spent on discharge:: 35 Patient Condition:: Stable Medical Necessity - Tobacco Use Smoking Status: Never smoker Tobacco Use: Non-smoker, Cigarettes Meaningful Use Info Meaningful Use Diagnoses (Choose all that apply): None applicable OBSV E&M: 85681 Observation care discharge
--- NOTE | 2019-07-16 15:00 | PHA.DC.MR ---
Pharmacy Service has performed discharge medication reconciliation for this patient. No new medications issued at time of discharge review. Medications reviewed are from previously reported home medications. The patient's discharge medication list was reviewed for discrepancies and discrepancies were resolved. Home Medications Cholecalciferol (VIT D3) [Vitamin D3] 2,000 unit PO DAILY 06/26/15 Garlic 1,000 mg PO DAILY 06/26/15 Levothyroxine [Synthroid] 75 mcg PO DAILY 06/26/15 Metoprolol Tartrate [Lopressor (beta susannah)] 25 mg PO BID 06/26/15 Multivitamins,Ther W-Minerals [Multivitamin With Minerals (BKC)] 1 tablet PO DAILY 06/26/15 Mycophenolate Mofetil [Cellcept] 500 mg PO BID 06/26/15 Simvastatin [Zocor] 40 mg PO QHS 06/26/15 Fluticasone 0.05% [Flonase Nasal [place]] 1 spray NASAL DAILY PRN 04/12/18 Metformin HCl [Metformin HCl ER] 500 mg PO DAILY 04/12/18 Acetaminophen [Tylenol] 500 mg PO Q4H PRN PRN #20 tablet 05/10/18 Ibuprofen 600 mg PO Q4H PRN PRN #20 tablet 05/10/18 Aspirin 325 mg PO DAILY 07/15/19 Biotin 1,000 mcg PO DAILY 07/15/19 Calcium 1,200 mg PO DAILY 07/15/19 L.acidoph,Paracasei, B.lactis [Probiotic] 1 ea PO DAILY 07/15/19 Vitamin C 3 tab PO DAILY 07/15/19 Fesoterodine Fumarate [Toviaz] 4 mg PO 07/16/19
== END 2019-07-16 14:35 | disposition home or self-care (01) ==
LOC: ED 22:23 → MS3 22:42 → PCU 07-16 00:29
PROVIDERS: Admitting Provider Hospitalist; Emergency Provider Emergency Medicine; PCP Family Medicine; Visit Provider Internal Medicine
DX: I20.8 Other forms of angina pectoris (principal); I10 Essential (primary) hypertension; E11.9 Type 2 diabetes mellitus without complications; E03.9 Hypothyroidism, unspecified; G70.00 Myasthenia gravis without (acute) exacerbation; E66.9 Obesity, unspecified; E78.5 Hyperlipidemia, unspecified; Z79.899 Other long term (current) drug therapy; Z79.82 Long term (current) use of aspirin; Z79.84 Long term (current) use of oral hypoglycemic drugs; Z68.34 Body mass index [BMI] 34.0-34.9, adult; Z71.3 Dietary counseling and surveillance; R94.31 Abnormal electrocardiogram [ECG] [EKG]
CPT/HCPCS: 36415; 71046; 78452; 80048; 80061; 82962; 84484; 85025; 93005; 93017; 94002; 99218; 99285; A9500; A4216; G0378

== ENCOUNTER → 2019-07-26 09:30 | Outpatient (CLI) | payer MEDICARE, MEDICAID, SELFPAY ==
[2019-07-15 23:12] VITALS: BMI 34.6
--- NOTE | 2019-07-26 09:32 | RAD_ITS ---
STUDY: X-RAY - CERVICAL SPINE REASON FOR EXAM: Female, 73 years old. Radiculopathy TECHNIQUE: 5 view(s) of the cervical spine were obtained. COMPARISON: None FINDINGS: Moderate diffuse spondylosis most prominently at C4-5 and C5-6. No spondylolisthesis. No fracture identified. Normal cervical lordosis. The soft tissue structures are unremarkable. RAD/Cerv Spine 4 or 5 Views IMPRESSION: Moderate multilevel spondylosis as above. Electronically Signed: Snáchez Love, at 21:07 EDT Tel , Service support ,
== END ==
PROVIDERS: PCP Family Medicine; Referring Provider Family Medicine; Visit Provider Family Medicine
DX: M54.2 Cervicalgia (principal)
CPT/HCPCS: 72050

== ENCOUNTER → 2019-11-12 09:27 | Outpatient (CLI) | payer MEDICARE, MEDICAID, SELFPAY ==
[2019-07-15 23:12] VITALS: BMI 34.6
[2019-11-12 12:48] LABS: Absolute Lymphocyte Count 1.77 X10^3/uL (0.83-4.51); Absolute Neutrophil Count 4.7 X10^3/uL (2.0-7.7); Basophil# 0.03 X10^3/uL; Basophil% 0.4 % (0-1); Eosinophil# 0.26 X10^3/uL; Eosinophils% 3.5 % (0-5); Hemoglobin 11.9 g/dL (12.0-15.0); Lymphocyte # 1.77 X10^3/ul (4.0); Lymphocyte % 23.7 % (19-41); Mean Corp Hgb Conc 30.5 g/dL (32-36); Mean Corpuscular Hgb 28.5 pg (27.0-32.0); Mean Corpuscular Volume 93.3 fL (81-99); Mean Platelet Vol. 9.2 fl (6.2-12.0); Monocyte# 0.72 X10^3/uL; Monocyte% 9.7 % (0-10); NRBC Flagged by Analyzer 0 % (0-5); Neutrophil # 4.67 X10^3/uL (2.7-7.7); Neutrophil % 62.6 % (47-70); Platelet Count 321 K/mm3 (150-450); RBC Distribution Width CV 14.6 % (11.6-14.6); RBC Distribution Width SD 49.3 fl (35.1-43.9); Red Blood Count 4.18 M/mm3 (4.2-5.4); White Blood Count 7.5 K/mm3 (4.4-11.0)
[2019-11-12 13:44] LABS: Hemoglobin A1c 6.2 % (3.8-5.6)
[2019-11-12 13:48] LABS: ALB/GLOB Ratio 0.9 RATIO (0.9-2.4); AST(SGOT) 18 U/L (15-37); Alanine Aminotransfer ALT/SGPT 23 U/L (13-56); Albumin, Serum 3.5 g/dL (3.2-5.0); Alkaline Phosphatase 76 U/L (45-117); Anion Gap 7 (5-15); BUN 14 mg/dL (7-18); BUN/Creat Ratio 16.7 RATIO (10-20); Calcium,Total 9.1 mg/dL (8.5-10.1); Chloride 104 mmol/L (98-107); Cholesterol 154 mg/dL (200); Creatinine, Serum 0.84 mg/dL (0.55-1.02); EST Glomerular Filtration Rate 71 mL/min (>60); Est Glom Filt Rate - Afr Amer 86 mL/min (>60); Ferritin 27 ng/mL (8-252); Globulin 3.9 g/dL (2.2-4.2); Glucose 100 mg/dL (74-106); High Density Lipoprotein 56 mg/dL; Iron 45 ug/dL (50-170); Iron Binding Capacity,Total 389 ug/dL (250-450); Potassium 4.1 mmol/L (3.5-5.1); Protein, Total 7.4 g/dL (6.4-8.2); Sodium Level 139 mmol/L (136-145); Thyroid Stim Hormone (TSH) 2.73 uIU/mL (0.358-3.74); Triglycerides 130 mg/dL; Very Low Density Lipoprotein 26 mg/dL (5-40)
[2019-11-12 14:08] LABS: Microalbumin,Random Urine 31.5 mg/L (NO RANGE EST.); Microalbumin:Creatinine Ratio 28.4 mg/g CRE (<30 mg/g CRE)
== END ==
PROVIDERS: PCP Family Medicine; Visit Provider Family Medicine
DX: E11.9 Type 2 diabetes mellitus without complications (principal); E61.1 Iron deficiency; E03.8 Other specified hypothyroidism; E78.5 Hyperlipidemia, unspecified; I10 Essential (primary) hypertension
CPT/HCPCS: 36415; 80053; 80061; 82043; 82570; 82728; 83036; 83540; 83550; 84443; 85025

== ENCOUNTER → 2019-12-05 | Outpatient (CLI) | payer MEDICARE, MEDICAID, SELFPAY ==
[2019-07-15 23:12] VITALS: BMI 34.6
== END | disposition home or self-care (01) ==
LOC: LABSPEC 15:10
PROVIDERS: PCP Family Medicine; Referring Provider Family Medicine; Visit Provider Family Medicine
DX: R35.0 Frequency of micturition (principal)
CPT/HCPCS: 87077; 87086; 87088; 87186

== ENCOUNTER 2020-01-02 08:00 | Outpatient (RCR) | payer MEDICARE, MEDICAID, SELFPAY ==
[2019-07-15 23:12] VITALS: BMI 34.6
== END 2020-01-07 23:59 ==
LOC: DC 08:00
PROVIDERS: PCP Family Medicine; Visit Provider Family Medicine
DX: Z71.3 Dietary counseling and surveillance (principal); E66.9 Obesity, unspecified; Z68.34 Body mass index [BMI] 34.0-34.9, adult; E11.9 Type 2 diabetes mellitus without complications
CPT/HCPCS: 97802; G0108

== ENCOUNTER 2020-01-23 10:39 | Outpatient (RCR) | payer MEDICARE, MEDICAID, SELFPAY ==
[2019-07-15 23:12] VITALS: BMI 34.6
== END 2020-02-06 23:59 ==
LOC: DC 10:39
PROVIDERS: PCP Family Medicine; Visit Provider Family Medicine
DX: Z71.3 Dietary counseling and surveillance (principal); E66.9 Obesity, unspecified; Z68.34 Body mass index [BMI] 34.0-34.9, adult; E11.9 Type 2 diabetes mellitus without complications
CPT/HCPCS: 97803

== ENCOUNTER 2020-02-28 09:00 | Outpatient (RCR) | payer MEDICARE, MEDICAID, SELFPAY ==
[2019-07-15 23:12] VITALS: BMI 34.6
== END 2020-03-08 23:59 ==
LOC: DC 09:00
PROVIDERS: PCP Family Medicine; Visit Provider Family Medicine
DX: Z71.3 Dietary counseling and surveillance (principal); E66.9 Obesity, unspecified; Z68.34 Body mass index [BMI] 34.0-34.9, adult; E11.9 Type 2 diabetes mellitus without complications
CPT/HCPCS: 97803; G0109

== ENCOUNTER 2020-03-13 14:44 | Outpatient (RCR) | payer MEDICARE, MEDICAID, SELFPAY ==
[2019-07-15 23:12] VITALS: BMI 34.6
== END 2020-04-07 23:59 ==
LOC: DC 14:44
PROVIDERS: PCP Family Medicine; Visit Provider Family Medicine
DX: Z71.3 Dietary counseling and surveillance (principal); E66.9 Obesity, unspecified; Z68.34 Body mass index [BMI] 34.0-34.9, adult; E11.9 Type 2 diabetes mellitus without complications

== ENCOUNTER → 2020-03-14 09:18 | Outpatient (CLI) | payer MEDICARE, MEDICAID, SELFPAY ==
[2019-07-15 23:12] VITALS: BMI 34.6
[2020-03-14 10:11] LABS: Absolute Lymphocyte Count 1.82 X10^3/uL (0.83-4.51); Absolute Neutrophil Count 2.4 X10^3/uL (2.0-7.7); Hematocrit 37.4 % (37-47); Hemoglobin 11.5 g/dL (12.0-15.0); Lymphocyte # 1.82 X10^3/ul (4.0); Lymphocyte % 37.4 % (19-41); Mean Corp Hgb Conc 30.7 g/dL (32-36); Mean Corpuscular Hgb 28.4 pg (27.0-32.0); Mean Corpuscular Volume 92.3 fL (81-99); Mean Platelet Vol. 8.9 fl (6.2-12.0); Monocyte# 0.61 X10^3/uL; Monocyte% 12.5 % (0-10); NRBC Flagged by Analyzer 0 % (0-5); Neutrophil # 2.43 X10^3/uL (2.7-7.7); Neutrophil % 49.9 % (47-70); Platelet Count 267 K/mm3 (150-450); RBC Distribution Width CV 14.4 % (11.6-14.6); RBC Distribution Width SD 49.2 fl (35.1-43.9); Red Blood Count 4.05 M/mm3 (4.2-5.4); White Blood Count 4.9 K/mm3 (4.4-11.0)
[2020-03-14 10:30] LABS: Hemoglobin A1c 6.1 % (3.8-5.6)
[2020-03-14 10:45] LABS: Vitamin D,25 Hydroxy 84.5 ng/mL
[2020-03-14 10:53] LABS: ALB/GLOB Ratio 0.9 RATIO (0.9-2.4); AST(SGOT) 27 U/L (15-37); Alanine Aminotransfer ALT/SGPT 21 U/L (13-56); Albumin, Serum 3.3 g/dL (3.2-5.0); Alkaline Phosphatase 59 U/L (45-117); Anion Gap 4 (5-15); BUN 17 mg/dL (7-18); BUN/Creat Ratio 15.6 RATIO (10-20); Calcium,Total 8.8 mg/dL (8.5-10.1); Chloride 102 mmol/L (98-107); Cholesterol 117 mg/dL (200); Creatinine, Serum 1.09 mg/dL (0.55-1.02); EST Glomerular Filtration Rate 52 mL/min (>60); Est Glom Filt Rate - Afr Amer 63 mL/min (>60); Ferritin 77 ng/mL (8-252); Globulin 3.7 g/dL (2.2-4.2); Glucose 95 mg/dL (74-106); High Density Lipoprotein 58 mg/dL; Iron 19 ug/dL (50-170); Iron Binding Capacity,Total 341 ug/dL (250-450); Potassium 4.1 mmol/L (3.5-5.1); Sodium Level 135 mmol/L (136-145); T4 Free Direct 1.31 ng/dL (0.76-1.46); Thyroid Stim Hormone (TSH) 0.69 uIU/mL (0.358-3.74); Triglycerides 73 mg/dL; Very Low Density Lipoprotein 15 mg/dL (5-40)
[2020-03-14 12:47] LABS: Microalbumin,Random Urine 61.3 mg/L (NO RANGE EST.); Microalbumin:Creatinine Ratio 23.2 mg/g CRE (<30 mg/g CRE)
== END ==
PROVIDERS: PCP Family Medicine; Referring Provider Family Medicine; Visit Provider Family Medicine
DX: E78.5 Hyperlipidemia, unspecified (principal); E03.8 Other specified hypothyroidism; E55.9 Vitamin D deficiency, unspecified; E61.1 Iron deficiency; E11.9 Type 2 diabetes mellitus without complications
CPT/HCPCS: 36415; 80053; 80061; 82043; 82306; 82570; 82728; 83036; 83540; 83550; 84439; 84443; 85025

== ENCOUNTER → 2020-03-18 | Outpatient (CLI) | payer MEDICARE, MEDICAID, SELFPAY ==
[2019-07-15 23:12] VITALS: BMI 34.6
== END | disposition home or self-care (01) ==
LOC: LABSPEC 16:19
PROVIDERS: PCP Family Medicine; Referring Provider Family Medicine; Visit Provider Family Medicine
DX: U07.1 COVID-19 (principal)
CPT/HCPCS: 87635; U0003

== ENCOUNTER → 2020-04-04 | Outpatient (CLI) | payer MEDICARE, MEDICAID, SELFPAY ==
[2019-07-15 23:12] VITALS: BMI 34.6
== END | disposition home or self-care (01) ==
LOC: LABSPEC 13:07
PROVIDERS: PCP Family Medicine; Referring Provider Family Medicine; Visit Provider Family Medicine
DX: Z20.828 Contact with and (suspected) exposure to other viral communicable diseases (principal)
CPT/HCPCS: 87635; U0003

== ENCOUNTER → 2020-04-23 14:40 | Outpatient (CLI) | payer MEDICARE, MEDICAID, SELFPAY ==
[2019-07-15 23:12] VITALS: BMI 34.6
[2020-04-23 17:50] LABS: Absolute Lymphocyte Count 2.74 X10^3/uL (0.83-4.51); Basophil# 0.04 X10^3/uL; Basophil% 0.5 % (0-1); Eosinophil# 0.19 X10^3/uL; Eosinophils% 2.2 % (0-5); Hematocrit 37.8 % (37-47); Hemoglobin 11.6 g/dL (12.0-15.0); Lymphocyte # 2.74 X10^3/ul (4.0); Lymphocyte % 31.3 % (19-41); Mean Corp Hgb Conc 30.7 g/dL (32-36); Mean Corpuscular Hgb 28.8 pg (27.0-32.0); Mean Corpuscular Volume 93.8 fL (81-99); Mean Platelet Vol. 9.3 fl (6.2-12.0); Monocyte# 0.71 X10^3/uL; Monocyte% 8.1 % (0-10); NRBC Flagged by Analyzer 0 % (0-5); Neutrophil # 5.04 X10^3/uL (2.7-7.7); Neutrophil % 57.6 % (47-70); Platelet Count 364 K/mm3 (150-450); RBC Distribution Width CV 15.2 % (11.6-14.6); RBC Distribution Width SD 52.4 fl (35.1-43.9); Red Blood Count 4.03 M/mm3 (4.2-5.4); White Blood Count 8.8 K/mm3 (4.4-11.0)
[2020-04-23 18:35] LABS: Anion Gap 9 (5-15); BUN 14 mg/dL (7-18); BUN/Creat Ratio 17.2 RATIO (10-20); Calcium,Total 9.8 mg/dL (8.5-10.1); Chloride 105 mmol/L (98-107); Creatinine, Serum 0.81 mg/dL (0.55-1.02); EST Glomerular Filtration Rate 73 mL/min (>60); Est Glom Filt Rate - Afr Amer 89 mL/min (>60); Glucose 100 mg/dL (74-106); Iron 43 ug/dL (50-170); Iron Binding Capacity,Total 349 ug/dL (250-450); Potassium 3.9 mmol/L (3.5-5.1); Sodium Level 140 mmol/L (136-145)
== END ==
PROVIDERS: PCP Family Medicine; Referring Provider Family Medicine; Visit Provider Family Medicine
DX: E61.1 Iron deficiency (principal); R94.4 Abnormal results of kidney function studies
CPT/HCPCS: 36415; 80048; 83540; 83550; 85025

== ENCOUNTER → 2020-05-22 08:45 | Outpatient (CLI) | payer MEDICARE, MEDICAID, SELFPAY ==
[2019-07-15 23:12] VITALS: BMI 34.6
[2020-05-22 10:09] LABS: Absolute Lymphocyte Count 1.95 X10^3/uL (0.83-4.51); Absolute Neutrophil Count 3.5 X10^3/uL (2.0-7.7); Basophil# 0.02 X10^3/uL; Basophil% 0.3 % (0-1); Eosinophils% 1.6 % (0-5); Hematocrit 36.7 % (37-47); Hemoglobin 11.2 g/dL (12.0-15.0); Lymphocyte # 1.95 X10^3/ul (4.0); Lymphocyte % 31.7 % (19-41); Mean Corp Hgb Conc 30.5 g/dL (32-36); Mean Corpuscular Hgb 28.8 pg (27.0-32.0); Mean Corpuscular Volume 94.3 fL (81-99); Monocyte# 0.56 X10^3/uL; Monocyte% 9.1 % (0-10); NRBC Flagged by Analyzer 0 % (0-5); Neutrophil # 3.51 X10^3/uL (2.7-7.7); Neutrophil % 57.1 % (47-70); Platelet Count 324 K/mm3 (150-450); RBC Distribution Width CV 15.2 % (11.6-14.6); RBC Distribution Width SD 52.9 fl (35.1-43.9); Red Blood Count 3.89 M/mm3 (4.2-5.4); White Blood Count 6.2 K/mm3 (4.4-11.0)
[2020-05-22 10:18] LABS: Iron 58 ug/dL (50-170); Iron Binding Capacity,Total 356 ug/dL (250-450)
== END ==
PROVIDERS: PCP Family Medicine; Referring Provider Family Medicine; Visit Provider Family Medicine
DX: D64.9 Anemia, unspecified (principal); Z71.3 Dietary counseling and surveillance; E66.9 Obesity, unspecified; Z68.34 Body mass index [BMI] 34.0-34.9, adult; E11.9 Type 2 diabetes mellitus without complications
CPT/HCPCS: 36415; 83540; 83550; 85025; G0109

== ENCOUNTER 2020-05-29 10:30 | Outpatient (RCR) | payer MEDICARE, MEDICAID, SELFPAY ==
[2019-07-15 23:12] VITALS: BMI 34.6
== END 2020-06-08 23:59 ==
LOC: DC 10:30
PROVIDERS: PCP Family Medicine; Visit Provider Family Medicine
DX: Z71.3 Dietary counseling and surveillance (principal); E66.9 Obesity, unspecified; Z68.34 Body mass index [BMI] 34.0-34.9, adult; E11.9 Type 2 diabetes mellitus without complications
CPT/HCPCS: 97803; G0109

== ENCOUNTER → 2020-07-10 12:37 | Outpatient (CLI) | payer MEDICARE, MEDICAID, SELFPAY ==
[2019-07-15 23:12] VITALS: BMI 34.6
--- NOTE | 2020-07-10 12:39 | BI_ITS ---
MAMMOGRAPHY - BILATERAL SCREENING REASON FOR EXAM: Female, 74 years old. Routine annual screening examination. PERTINENT HISTORY: Non-contributory. Remote right stereotactic and excisional right breast biopsy. TECHNIQUE: Digital bilateral breast tristian (3D mammographic acquisition) in the CC and MLO projections. 2-D mediolateral oblique (MLO) and craniocaudad (CC) views of both breasts were obtained. CAD: Full Field Digital Mammography with Computer Added Detection was performed. COMPARISON: Comparison is made with prior examination dated 06/07/2019 and 06/02/2018. FINDINGS: Breast Composition: The breasts are almost entirely fatty. There are no dominant masses or suspicious calcifications. Small benign-appearing bilateral axillary lymph nodes. No other significant abnormalities are identified. There has been no significant change since the prior study. BI/SCRN MAMM (CAD)W/TRISTIAN BILAT IMPRESSION: Stable bilateral screening mammogram. Yearly follow-up mammogram recommended. (A) ASSESSMENT CATEGORY: BIRADS Category 2: Benign. A letter regarding these results will be sent to the patient by the facility within 30 days. Approximately 10% of breast cancers are not detected by mammography. A normal mammogram should not delay biopsy of a clinically suspicious abnormality. [id number] Electronically Signed: Wilfredo Bolivar MD at 14:14 EST , Service support ,
== END ==
PROVIDERS: PCP Family Medicine; Referring Provider Family Medicine; Visit Provider Family Medicine
DX: Z12.31 Encounter for screening mammogram for malignant neoplasm of breast (principal); Z71.3 Dietary counseling and surveillance; E66.9 Obesity, unspecified; Z68.34 Body mass index [BMI] 34.0-34.9, adult; E11.9 Type 2 diabetes mellitus without complications
CPT/HCPCS: 77063; 77067; G0109

== ENCOUNTER 2020-07-10 14:44 | Outpatient (RCR) | payer MEDICARE, MEDICAID, SELFPAY ==
[2019-07-15 23:12] VITALS: BMI 34.6
== END 2020-08-06 23:59 ==
LOC: DC 14:44
PROVIDERS: PCP Family Medicine; Visit Provider Family Medicine
DX: Z71.3 Dietary counseling and surveillance (principal); E66.9 Obesity, unspecified; Z68.34 Body mass index [BMI] 34.0-34.9, adult; E11.9 Type 2 diabetes mellitus without complications
CPT/HCPCS: G0109

== ENCOUNTER → 2020-07-17 09:38 | Outpatient (CLI) | payer MEDICARE, MEDICAID, SELFPAY ==
[2019-07-15 23:12] VITALS: BMI 34.6
[2020-07-17 12:25] LABS: Hemoglobin A1c 6.2 % (3.8-5.6); Vitamin D,25 Hydroxy 63.2 ng/mL
[2020-07-17 12:27] LABS: AST(SGOT) 15 U/L (15-37); Albumin, Serum 3.5 g/dL (3.2-5.0); Alkaline Phosphatase 73 U/L (45-117); BUN 18 mg/dL (7-18); BUN/Creat Ratio 17.8 RATIO (10-20); Calcium,Total 9.3 mg/dL (8.5-10.1); Creatinine, Serum 1.01 mg/dL (0.55-1.02); EST Glomerular Filtration Rate 57 mL/min (>60); Est Glom Filt Rate - Afr Amer 69 mL/min (>60); Globulin 3.6 g/dL (2.2-4.2); Glucose 118 mg/dL (74-106); Protein, Total 7.1 g/dL (6.4-8.2)
[2020-07-17 12:28] LABS: Alanine Aminotransfer ALT/SGPT 20 U/L (13-56); Anion Gap 5 (5-15); Chloride 104 mmol/L (98-107); Cholesterol 178 mg/dL (200); High Density Lipoprotein 69 mg/dL; Potassium 4.4 mmol/L (3.5-5.1); Sodium Level 140 mmol/L (136-145); T4 Free Direct 1.13 ng/dL (0.76-1.46); Thyroid Stim Hormone (TSH) 1.51 uIU/mL (0.358-3.74); Triglycerides 137 mg/dL; Very Low Density Lipoprotein 27 mg/dL (5-40)
[2020-07-17 12:46] LABS: Microalbumin,Random Urine 25.8 mg/L (NO RANGE EST.); Microalbumin:Creatinine Ratio 24.1 mg/g CRE (<30 mg/g CRE)
[2020-07-25 13:08] LABS: ACHR AB Modulating <12 % (0-20); ACHR Recep AB, Blocking 8 % (0-25); Acetylcholine Receptor Binding 0.06 nmol/L (0.00-0.24)
== END ==
PROVIDERS: PCP Family Medicine; Referring Provider Family Medicine; Visit Provider Family Medicine
DX: G70.00 Myasthenia gravis without (acute) exacerbation (principal); E78.5 Hyperlipidemia, unspecified; E11.9 Type 2 diabetes mellitus without complications; E55.9 Vitamin D deficiency, unspecified; E03.8 Other specified hypothyroidism
CPT/HCPCS: 36415; 80053; 80061; 82043; 82306; 82570; 83036; 83519; 84238; 84439; 84443

== ENCOUNTER → 2020-07-22 11:29 | Outpatient (CLI) | payer MEDICARE, MEDICAID, SELFPAY ==
[2019-07-15 23:12] VITALS: BMI 34.6
[2020-07-22 12:36] LABS: Absolute Lymphocyte Count 2.12 X10^3/uL (0.83-4.51); Absolute Neutrophil Count 4.2 X10^3/uL (2.0-7.7); Basophil# 0.05 X10^3/uL; Basophil% 0.7 % (0-1); Eosinophil# 0.12 X10^3/uL; Eosinophils% 1.7 % (0-5); Hematocrit 37.4 % (37-47); Hemoglobin 11.7 g/dL (12.0-15.0); Lymphocyte # 2.12 X10^3/ul (4.0); Lymphocyte % 29.7 % (19-41); Mean Corp Hgb Conc 31.3 g/dL (32-36); Mean Corpuscular Hgb 29.4 pg (27.0-32.0); Monocyte# 0.67 X10^3/uL; Monocyte% 9.4 % (0-10); NRBC Flagged by Analyzer 0 % (0-5); Neutrophil # 4.17 X10^3/uL (2.7-7.7); Neutrophil % 58.2 % (47-70); Platelet Count 314 K/mm3 (150-450); RBC Distribution Width CV 13.4 % (11.6-14.6); RBC Distribution Width SD 45.5 fl (35.1-43.9); Red Blood Count 3.98 M/mm3 (4.2-5.4); White Blood Count 7.2 K/mm3 (4.4-11.0)
[2020-07-22 13:25] LABS: Ferritin 31 ng/mL (8-252); Iron 59 ug/dL (50-170); Iron Binding Capacity,Total 339 ug/dL (250-450)
== END ==
PROVIDERS: PCP Family Medicine; Referring Provider Family Medicine; Visit Provider Family Medicine
DX: E61.1 Iron deficiency (principal)
CPT/HCPCS: 36415; 82728; 83540; 83550; 85025

== ENCOUNTER → 2020-08-07 11:35 | Outpatient (CLI) | payer MEDICARE, MEDICAID, SELFPAY ==
[2019-07-15 23:12] VITALS: BMI 34.6
[2020-08-07 15:14] LABS: Anion Gap 7 (5-15); BUN 19 mg/dL (7-18); BUN/Creat Ratio 19.3 RATIO (10-20); Calcium,Total 10.2 mg/dL (8.5-10.1); Chloride 103 mmol/L (98-107); Creatinine, Serum 0.98 mg/dL (0.55-1.02); EST Glomerular Filtration Rate 59 mL/min (>60); Est Glom Filt Rate - Afr Amer 71 mL/min (>60); Glucose 171 mg/dL (74-106); Potassium 4.3 mmol/L (3.5-5.1); Sodium Level 140 mmol/L (136-145)
== END ==
PROVIDERS: PCP Family Medicine; Referring Provider Family Medicine; Visit Provider Family Medicine
DX: E11.59 Type 2 diabetes mellitus with other circulatory complications (principal); E66.9 Obesity, unspecified; Z68.34 Body mass index [BMI] 34.0-34.9, adult
CPT/HCPCS: 36415; 80048; G0109

== ENCOUNTER 2020-08-07 16:31 | Outpatient (RCR) | payer MEDICARE, MEDICAID, SELFPAY ==
[2019-07-15 23:12] VITALS: BMI 34.6
== END 2020-08-07 23:59 | disposition home or self-care (01) ==
LOC: DC 16:31
PROVIDERS: PCP Family Medicine; Visit Provider Family Medicine
DX: E11.9 Type 2 diabetes mellitus without complications (principal); E66.9 Obesity, unspecified; Z68.34 Body mass index [BMI] 34.0-34.9, adult
CPT/HCPCS: G0109